=== PATIENT | male | born 1955 | race Caucasian/White ===

== ENCOUNTER 2019-08-07 18:06 | Inpatient (IN) | payer OTHER ==
[2019-08-07 19:53] LABS: Basophils % (A) 0 %; Eosinophils # (A) 0.2 k/uL (0-0.7); Eosinophils % (A) 1 %; HGB 14.2 gm/dL (13.0-17.5); Lymphocytes # (A) 1.1 k/uL (1.0-4.8); Lymphocytes % (A) 4 %; MCH 28.5 pg (25.0-35.0); MCHC 32.9 g/dL (31.0-37.0); MCV 86.6 fL (80.0-100.0); Mean Platelet Volume 7.1; Monocytes # (A) 1.2 k/uL (0-1.0); Monocytes % (A) 5 %; Neutrophils # (A) 22.8 k/uL (1.3-7.7); Neutrophils % (A) 89 %; Platelet Count 221 k/uL (150-450); RBC 4.97 m/uL (4.30-5.90); RDW 13.8 % (11.5-15.5); WBC 25.6 k/uL (3.8-10.6)
[2019-08-07] MEDS ORDERED: SODIUM CHLORIDE 0.9% 1,000 ML IV ONE (19:58)
[2019-08-07] MEDS ORDERED: ACETAMINOPHEN TAB 500 MG TAB PO STA (19:58)
[2019-08-07] MEDS ORDERED: MORPHINE SULFATE 4 MG/ML SYRINGE IVP STA (19:58)
[2019-08-07] MEDS ORDERED: ONDANSETRON 4 MG/2 ML VIAL IVP STA (19:58)
[2019-08-07 20:02] LABS: Partial Thromboplastin Time 28.3 sec (22.0-30.0); Prothrombin Time 10.7 sec (9.0-12.0)
--- NOTE | 2019-08-07 20:02 | ED ---
General Adult HPI - General Chief complaint: Shortness of Breath Stated complaint: rt sided chest pain Time Seen by Provider: 08/07/19 19:43 Source: patient Mode of arrival: ambulatory Limitations: no limitations - History of Present Illness Initial comments: 64-year-old male patient presents to the emergency department today for evaluation of chest pain and shortness of breath. Patient reports symptoms starting on Sunday with cough and nasal congestion. Patient states over the last couple of days he has become increasingly more short of breath. States he is coughing up green sputum. States he has severe pain to the right side of his chest with any attempts at taking a deep breath, movement, or coughing. States he did try taking Motrin this morning but it has not been working. States he has been feverish and chilled. Patient states he does have a history of COPD but is mild. He does not do any home breathing treatments or oxygen. States he did not receive influenza vaccination this season. Patient denies any recent rash, abdominal pain, nausea, vomiting, diarrhea, constipation, back pain, numbness, tingling, dizziness, weakness, hematuria, dysuria, urinary urgency, urinary frequency, headache, visual changes, or any other complaints. - Related Data Allergies Allergy/AdvReac Type Severity Reaction Status Date / Time indomethacin [From Indocin] Allergy Unknown Verified 08/07/19 18:49 Review of Systems ROS Statement: Those systems with pertinent positive or pertinent negative responses have been documented in the HPI. ROS Other: All systems not noted in ROS Statement are negative. Past Medical History Past Medical History: Atrial Fibrillation, CVA/TIA, Myocardial Infarction ([place]), Pneumonia Additional Past Medical History / Comment(s): aortic aneurysm, emphysema History of Any Multi-Drug Resistant Organisms: None Reported Past Surgical History: Heart Catheterization With Stent, Orthopedic Surgery, Prostate Surgery Additional Past Surgical History / Comment(s): triple a mesh, left foot surgery, right knee surger Past Psychological History: No Psychological Hx Reported Smoking Status: Former smoker Past Alcohol Use History: None Reported Past Drug Use History: None Reported General Exam Limitations: no limitations General appearance: alert, in no apparent distress, other (This is a well-de veloped, well-nourished, ill-appearing adult male patient in mild distress related to pain and shortness of breath. Vital signs upon presentation are temperature 101.5F, pulse 94, respirations 19, blood pressure 101/59, pulse ox 93% on room air.) Eye exam: Present: normal appearance, PERRL, EOMI. Absent: scleral icterus, conjunctival injection, periorbital swelling ENT exam: Present: normal exam, normal oropharynx, mucous membranes moist Respiratory exam: Present: respiratory distress (Mild). Absent: wheezes, rales, rhonchi, stridor Cardiovascular Exam: Present: regular rate, normal rhythm, normal heart sounds. Absent: systolic murmur, diastolic murmur, rubs, gallop, clicks GI/Abdominal exam: Present: soft, normal bowel sounds. Absent: distended, tenderness, guarding, rebound, rigid Neurological exam: Present: alert, oriented X3, CN II-XII intact Psychiatric exam: Present: normal affect, normal mood Skin exam: Present: warm, dry, intact, normal color. Absent: rash Course Vital Signs 08/07/19 08/07/19 08/07/19 18:43 20:15 20:22 Temperature 101.5 F H Pulse Rate 94 94 94 Respiratory 19 18 16 Rate Blood Pressure 101/59 O2 Sat by Pulse 93 L Oximetry - Reevaluation(s) Reevaluation #1: 08/07/19 20:26 Patient's blood pressure decreased to 85/43. 18-gauge IV line inserted into the left antecubital fossa. Started a 1 L bolus. Patient diagnosed with sepsis at this time. We will initiate the protocol. EKG Findings - EKG Comments: EKG Findings:: EKG obtained in 1918 shows normal sinus rhythm with a sinus arrhythmia. Ventricular rate is 89, AK interval 150, QRS duration 90, QT 336, QTc 408. No evidence of ST elevation or depression. Medical Decision Making - Medical Decision Making 64-year-old male patient presents to the emergency department today for evaluation of fever, shortness of breath, and right-sided chest pain. He is also had a productive cough. Physical examination reveals diminished lung sounds. Oxygen saturation is 90-93% on room air. Patient has significant pain to the right side of his chest with any cough, or deep inspiration. Labs reviewed and did reveal elevated white blood cell count at 25,000. Chest x-ray did show a right middle lobe pneumonia. He was started on Rocephin and azithromycin. He did have blood pressures decreased into the 80s systolic, he was given sepsis fluid bolus. He'll be admitted to the hospital for continued IV antibiotics and further monitoring. Patient is agreeable this plan. Dr. Sandoval is accepting. - Lab Data Result diagrams: 08/07/19 19:33 08/07/19 19:33 Lab Results 08/07/19 08/07/19 08/07/19 Range/Units 19:33 19:33 19:33 WBC 25.6 H (3.8-10.6) k/uL RBC 4.97 (4.30-5.90) m/uL Hgb 14.2 (13.0-17.5) gm/dL Hct 43.0 (39.0-53.0) % MCV 86.6 (80.0-100.0) fL MCH 28.5 (25.0-35.0) pg MCHC 32.9 (31.0-37.0) g/dL RDW 13.8 (11.5-15.5) % Plt Count 221 (150-450) k/uL Neutrophils % 89 % Lymphocytes % 4 % Monocytes % 5 % Eosinophils % 1 % Basophils % 0 % Neutrophils # 22.8 H (1.3-7.7) k/uL Lymphocytes # 1.1 (1.0-4.8) k/uL Monocytes # 1.2 H (0-1.0) k/uL Eosinophils # 0.2 (0-0.7) k/uL Basophils # 0.0 (0-0.2) k/uL PT 10.7 (9.0-12.0) sec INR 1.0 (<1.2) APTT 28.3 (22.0-30.0) sec Sodium 136 L (137-145) mmol/L Potassium 4.2 (3.5-5.1) mmol/L Chloride 107 (98-107) mmol/L Carbon Dioxide 19 L (22-30) mmol/L Anion Gap 10 mmol/L BUN 21 H (9-20) mg/dL Creatinine 0.76 (0.66-1.25) mg/dL Est GFR (CKD-EPI)AfAm >90 (>60 ml/min/1.73 sqM) Est GFR (CKD-EPI)NonAf >90 (>60 ml/min/1.73 sqM) Glucose 119 H (74-99) mg/dL Plasma Lactic Acid Po (0.7-2.0) mmol/L Calcium 9.2 (8.4-10.2) mg/dL Total Bilirubin 0.9 (0.2-1.3) mg/dL AST 26 (17-59) U/L ALT 18 (4-49) U/L Alkaline Phosphatase 66 (38-126) U/L Troponin I (0.000-0.034) ng/mL Total Protein 6.6 (6.3-8.2) g/dL Albumin 3.8 (3.5-5.0) g/dL Influenza Type A RNA (Not Detectd) Influenza Type B (PCR) (Not Detectd) 08/07/19 08/07/19 08/07/19 Range/Units 19:33 19:33 19:54 WBC (3.8-10.6) k/uL RBC (4.30-5.90) m/uL Hgb (13.0-17.5) gm/dL Hct (39.0-53.0) % MCV (80.0-100.0) fL MCH (25.0-35.0) pg MCHC (31.0-37.0) g/dL RDW (11.5-15.5) % Plt Count (150-450) k/uL Neutrophils % % Lymphocytes % % Monocytes % % Eosinophils % % Basophils % % Neutrophils # (1.3-7.7) k/uL Lymphocytes # (1.0-4.8) k/uL Monocytes # (0-1.0) k/uL Eosinophils # (0-0.7) k/uL Basophils # (0-0.2) k/uL PT (9.0-12.0) sec INR (<1.2) APTT (22.0-30.0) sec Sodium (137-145) mmol/L Potassium (3.5-5.1) mmol/L Chloride (98-107) mmol/L Carbon Dioxide (22-30) mmol/L Anion Gap mmol/L BUN (9-20) mg/dL Creatinine (0.66-1.25) mg/dL Est GFR (CKD-EPI)AfAm (>60 ml/min/1.73 sqM) Est GFR (CKD-EPI)NonAf (>60 ml/min/1.73 sqM) Glucose (74-99) mg/dL Plasma Lactic Acid Po 1.0 (0.7-2.0) mmol/L Calcium (8.4-10.2) mg/dL Total Bilirubin (0.2-1.3) mg/dL AST (17-59) U/L ALT (4-49) U/L Alkaline Phosphatase (38-126) U/L Troponin I 0.014 (0.000-0.034) ng/mL Total Protein (6.3-8.2) g/dL Albumin (3.5-5.0) g/dL Influenza Type A RNA Not Detected (Not Detectd) Influenza Type B (PCR) Not Detected (Not Detectd) - Radiology Data Radiology results: report reviewed, image reviewed 2 views of the chest are obtained. Report was reviewed in its entirety. Impression by Dr. Estes shows right middle lobe pneumonia. Disposition Clinical Impression: Right middle lobe pneumonia Disposition: ADMITTED IP TO THIS [facility] Condition: Serious Referrals: Ifeanyi Peace MD [Primary Care Provider] - 1-2 days Decision to Admit Reason: Admit from EC Decision Date: 08/07/19 Decision Time: 22:01
[2019-08-07] MEDS ORDERED: IPRATROPIUM-ALBUTEROL 3 ML NEB INHALATION STA (20:05)
[2019-08-07] MEDS ORDERED: AZITHROMYCIN 500 MG in SODIUM CHLORIDE 0.9% 250 ML IVPB STA (20:05)
--- NOTE | 2019-08-07 20:20 | XR ---
EXAMINATION TYPE: XR chest 2V DATE OF EXAM: 08/07/2019 COMPARISON: NONE HISTORY: Short of breath TECHNIQUE: 2 views FINDINGS: There is some linear consolidation and atelectasis in the anterior right middle lobe. The o ther lung cano are fairly clear. There is no heart failure. Heart size is normal. There is no pleur al effusion. IMPRESSION: There is evidence of right middle lobe pneumonia and atelectasis. Follow-up is recommende d show clearing.
[2019-08-07] MEDS ORDERED: SODIUM CHLORIDE 0.9% 2,000 ML IV ONE (20:27)
[2019-08-07 21:18] LABS: AST 26 U/L (17-59); African American GFR (CKD) >90 (>60 ml/min/1.73 sqM); Albumin 3.8 g/dL (3.5-5.0); Alkaline Phosphatase 66 U/L (38-126); Anion Gap 10 mmol/L; Blood Urea Nitrogen 21 mg/dL (9-20); Calcium 9.2 mg/dL (8.4-10.2); Carbon Dioxide 19 mmol/L (22-30); Chloride 107 mmol/L (98-107); Glucose 119 mg/dL (74-99); Non-African American GFR(CKD) >90 (>60 ml/min/1.73 sqM); Potassium 4.2 mmol/L (3.5-5.1); Sodium 136 mmol/L (137-145); Total Bilirubin 0.9 mg/dL (0.2-1.3); Total Protein 6.6 g/dL (6.3-8.2)
[2019-08-07] MEDS ORDERED: IPRATROPIUM-ALBUTEROL 3 ML NEB INHALATION PRN (21:27)
[2019-08-07] MEDS ORDERED: PNEUMONIA PROTOCOL UTILIZED 1 EACH MISC PO PRN (21:27)
[2019-08-07 21:35] LABS: ALT 18 U/L (4-49)
[2019-08-07] MEDS ORDERED: KETOROLAC 30 MG/ML 1 ML VIAL IVP STA (22:05)
[2019-08-07] MEDS ORDERED: MORPHINE SULFATE 4 MG/ML SYRINGE IVP PRN (22:05)
[2019-08-07] MEDS: SODIUM CHLORIDE 0.9% 1,000 ML IV SCH (22:15)
[2019-08-07] MEDS ORDERED: ACETAMINOPHEN TAB 325 MG TAB PO PRN (22:27)
[2019-08-08] MEDS: SODIUM CHLORIDE 0.9% 1,000 ML IV SCH ×3 (05:14→21:11)
[2019-08-08] MEDS: IPRATROPIUM-ALBUTEROL 3 ML NEB INHALATION SCH ×4 (06:58→19:29)
--- NOTE | 2019-08-08 08:15 | XR ---
EXAMINATION TYPE: XR chest 2V DATE OF EXAM: 08/08/2019 COMPARISON: 08/07/2019 HISTORY: 64-year-old male follow-up pneumonia TECHNIQUE: PA and lateral views FINDINGS: Heart normal size. Aorta within normal limits. Mild interstitial prominence. Focal right midlung airs pace disease is unchanged. No pleural effusion. IMPRESSION: Focal anterior right midlung infiltrate remains unchanged.
[2019-08-08] MEDS ORDERED: IBUPROFEN 600 MG TAB PO PRN (10:20)
[2019-08-08] MEDS: ATENOLOL 25 MG TAB PO SCH (10:56)
[2019-08-08] MEDS: MULTIVITAMINS, THERA 1 EACH TAB PO SCH (10:56)
[2019-08-08] MEDS: LISINOPRIL 20 MG TAB PO SCH (10:56)
[2019-08-08] MEDS: OXYBUTYNIN 10 MG TAB.ER.24 PO SCH (10:56)
[2019-08-08] MEDS ORDERED: TEMAZEPAM 15 MG CAP PO PRN (15:01)
[2019-08-08] MEDS ORDERED: ALPRAZolam 0.25 MG TAB PO PRN (15:01)
[2019-08-08] MEDS: HYDROcodone/APAP 10-325MG 1 EACH TAB PO PRN (16:52)
[2019-08-08 17:02] LABS: Appearance,Urine Clear (Clear); Bilirubin,Urine Negative (Negative); Blood,Urine Trace (Negative); Color,Urine Light Yellow; Glucose,Urine (UA) Negative (Negative); Hyaline Casts,Urine 1 /lpf (0-2); Ketones,Urine Negative (Negative); Leukocyte Esterase,Urine Negative (Negative); Mucus,Urine Rare /hpf; Nitrite,Urine Negative (Negative); Protein,Urine Negative (Negative); RBC,Urine 1 /hpf (0-5); Specific Gravity,Urine 1.006 (1.001-1.035); Urobilinogen,Urine <2.0 mg/dL (<2.0); WBC,Urine 1 /hpf (0-5)
--- NOTE | 2019-08-08 17:02 | HP ---
HISTORY AND PHYSICAL CHIEF COMPLAINT: Shortness of breath with cough and right-sided chest pain. HISTORY OF PRESENT ILLNESS: This 64-year-old gentleman with a past medical history of multiple medical problems including atrial ablation, CVA, TIA, myocardial infarction, pneumonia, aortic aneurysm history, emphysema, history of CAD/stent being followed by Dr. Peace in the outpatient setting complaining of shortness of breath, cough and sputum for the last several days. The patient also coughing up green sputum. Patient was complaining of right- sided chest pain which was increasing with cough and respirations also. The patient came to [facility]. Chest x-ray showed possible right mid lung infiltrate and the patient was admitted for further evaluation and treatment. There is no history of fever, rigors or chills. No history of headache, loss of consciousness or seizures at this time. PAST MEDICAL HISTORY: History of atrial fibrillation, CVA, TIA, myocardial infarction, pneumonia, aortic aneurysm, history of coronary artery disease/stent, DJD. MEDICATIONS: Home medications are: 1. Crestor 10 mg q.h.s. 2. Xarelto 10 mg q.h.s. 4. [place]-3 fatty acids 1 p.o. b.i.d. 5. Multivitamins one p.o. daily. 6. Motrin 600 mg q.6h p.r.n. 7. [place] 10 mg t.i.d. p.r.n. 8. Vasotec 10 mg p.o. daily. 9. Tenormin 25 mg p.o. daily. 10.Ecotrin 320 mg p.o. daily. ALLERGIES: INDOMETHACIN. FAMILY HISTORY: No history of heart disease or strokes in the family. SOCIAL HISTORY: Previous history of smoking. No history of history of current smoking or alcohol intake. REVIEW OF SYSTEMS: ENT: No diminished vision. No diminished hearing. CARDIOVASCULAR system is as mentioned earlier. GI no nausea or vomiting. no dysuria or hematuria. NERVOUS SYSTEM: No numbness or weakness. ALLERGY/IMMUNOLOGY: No asthma or hayfever. MUSCULOSKELETAL as mentioned earlier. HEMATOLOGY/ONCOLOGY: No history of anemia. ENDOCRINE: No history of diabetes or hypothyroidism. CONSTITUTIONAL: As mentioned earlier. DERMATOLOGY: Negative. RHEUMATOLOGY negative. PSYCHIATRY as mentioned earlier. PHYSICAL EXAMINATION: Alert and oriented times three. Pulse 82, blood pressure 124/69, respirations 16, temperature 97.9, pulse ox 94% on 2 L. HEENT is conjunctivae normal. NECK: No JVD. CARDIOVASCULAR: S1, S2 muffled. RESPIRATIONS: Breath sounds diminished in the bases. Bilateral scattered rhonchi and crackles, right more than the left and some coarse crackles also in the right anterior part of chest. ABDOMEN: Soft, nontender. No mass palpable. LEGS: No edema. No swelling. NERVOUS SYSTEM: Higher functions as mentioned earlier. Moves all 4 limbs. No focal motor or sensory deficits. LYMPHATICS: No lymph nodes palpable in the neck, axillae or groin. JOINTS: No active deforming arthropathy. LABS: At this time shows WBC 25.6, hemoglobin 14.2. Sodium 130, potassium 4.2. ASSESSMENT: 1. Acute right middle lobe pneumonia, possibly community-acquired pneumonia with possible severe acute respiratory syndrome present on admission. 2. Increased WBC. 3. Hyponatremia. 4. History of atrial fibrillation. 5. History of cerebrovascular accident, transient ischemic attack. 6. History of myocardial infarction. 7. History of pneumonia. 8. History of aortic aneurysm. 9. History of chronic obstructive pulmonary disease. 10.History of coronary artery disease/stent. 11.History of prostate surgery. 12.History of right knee surgery. 13.Remote history of nicotine dependence. 14.Obesity with body mass of 32.8. 15.FULL CODE. RECOMMENDATIONS AND DISCUSSION: In this 64-year-old gentleman who presented with multiple complex medical issues, we will monitor the patient closely, continue the current medications, management and symptomatic treatment. Recommend bronchodilator treatment. Empiric antibiotics. Follow the cultures. Otherwise I would also recommend a CT scan of the chest to rule out the possibility of atelectasis or any other abnormality because of the chest x-ray appearance. Other than that, continue with IV fluids. DVT prophylaxis. Guarded prognosis. Further recommendations to follow. A copy of this dictation being forwarded to Dr. Peace who is the primary physician. MMARSHL / IJN: [id number] / [id number]
--- NOTE | 2019-08-08 17:40 | CT ---
EXAMINATION TYPE: CT chest wo con DATE OF EXAM: 08/08/2019 COMPARISON: 08/08/2019 chest x-ray HISTORY: Right pneumonia, atelectasis. CT DLP: 757.6 mGycm, Automated exposure control for dose reduction was used. CONTRAST: Performed injected with 0 mL of Isovue 300. TECHNIQUE: Axial images were obtained at 5 mm thick sections. Reconstructed images are reviewed on [employer] computer in the coronal plane. FINDINGS: Portion of the thyroid visualized is normal. Minimal left and small to minimal right pleural effusions are present. There is a large consolidation within the right middle lobe. Consolidation is in the medial lingula. Pneumonia should be considered. Underlying masses are not excluded. Emphysematous changes are present . There are some increased lung markings along the periphery of the lung especially near the lung bas es. Some developing pulmonary fibrosis could be considered. No enlarged mediastinal or hilar adenopathy is evident. The ascending aorta diameter at the level o f the main pulmonary artery is 3.7 cm. The main pulmonary artery diameter at the bifurcation is 3.4 cm. Moderate coronary artery calcifications present. Limited CT sections are obtained through the upper abdomen. There is some thickening of the left adre nal gland estimated at 1.9 cm. Right adrenal gland appears unremarkable. IMPRESSIONS: 1. Large consolidation right middle lobe with a small medial lingular consolidation. Correlate for pn eumonia. 2. Developing pulmonary fibrosis may be present within the dependent portions of the lungs. 3. Thickened adrenal gland.
[2019-08-08] MEDS ORDERED: NON FORMULARY DRUG (Omega-3 Fatty Acids/Fish Oil [Fish Oil 1,000 Mg Softgel] 1 CAP) PO SCH (21:00)
[2019-08-08] MEDS: ATORVASTATIN 20 MG TAB PO SCH (21:10)
[2019-08-08] MEDS: AZITHROMYCIN 500 MG TAB PO SCH (21:10)
[2019-08-08] MEDS: RIVAROXABAN 20 MG TAB PO SCH (21:48)
[2019-08-09] MEDS: HYDROcodone/APAP 10-325MG 1 EACH TAB PO PRN (01:11)
[2019-08-09] MEDS: SODIUM CHLORIDE 0.9% 1,000 ML IV SCH (05:29)
[2019-08-09 06:28] LABS: Basophils % (A) 0 %; Eosinophils # (A) 0.3 k/uL (0-0.7); Eosinophils % (A) 3 %; HCT 36.5 % (39.0-53.0); Lymphocytes # (A) 1.3 k/uL (1.0-4.8); Lymphocytes % (A) 13 %; MCH 29.1 pg (25.0-35.0); MCHC 32.8 g/dL (31.0-37.0); MCV 88.7 fL (80.0-100.0); Mean Platelet Volume 7.6; Monocytes # (A) 0.7 k/uL (0-1.0); Monocytes % (A) 6 %; Neutrophils # (A) 7.9 k/uL (1.3-7.7); Neutrophils % (A) 75 %; Platelet Count 225 k/uL (150-450); RBC 4.12 m/uL (4.30-5.90); RDW 13.7 % (11.5-15.5); WBC 10.5 k/uL (3.8-10.6)
[2019-08-09 06:37] LABS: African American GFR (CKD) >90 (>60 ml/min/1.73 sqM); Anion Gap 7 mmol/L; Blood Urea Nitrogen 11 mg/dL (9-20); Calcium 8.1 mg/dL (8.4-10.2); Carbon Dioxide 22 mmol/L (22-30); Chloride 110 mmol/L (98-107); Glucose 119 mg/dL (74-99); Non-African American GFR(CKD) >90 (>60 ml/min/1.73 sqM); Potassium 3.8 mmol/L (3.5-5.1); Sodium 139 mmol/L (137-145)
[2019-08-09] MEDS: ASPIRIN 325 MG TAB PO SCH (09:13)
[2019-08-09] MEDS: LISINOPRIL 20 MG TAB PO SCH (09:13)
[2019-08-09] MEDS: PANTOPRAZOLE 40 MG TABLET PO SCH (09:13)
[2019-08-09] MEDS: ATENOLOL 25 MG TAB PO SCH (09:13)
[2019-08-09] MEDS: MULTIVITAMINS, THERA 1 EACH TAB PO SCH (09:13)
[2019-08-09] MEDS: IPRATROPIUM-ALBUTEROL 3 ML NEB INHALATION SCH ×4 (09:48→22:05)
[2019-08-09] MEDS: OXYBUTYNIN 10 MG TAB.ER.24 PO SCH (12:32)
--- NOTE | 2019-08-09 16:51 | CONS ---
CONSULTATION PULMONARY/CRITICAL CARE CONSULTATION: DATE OF SERVICE: 08/09/2019 This is a 64-year-old male who presented to the emergency room. He came in with complaints of chest pain and shortness of breath. Apparently started on Sunday earlier this week. He also complained of cough with nasal congestion. He was coughing up a small amount of phlegm, mostly clear or white. Over the last couple days, the shortness of breath and particularly the chest pain had gotten worse. The phlegm is typically white, sometimes green. The pain is primarily right-sided. It is worse anytime he takes a deep breath. It is sharp pain. It is worse with body movement and coughing. He did take Motrin, but it has not really been helping that much. He states that last night he sort of slept in his room sitting on the bed upright because when he lays down it is too painful. The patient states that he denies any nausea, vomiting or diarrhea. Denies any genitourinary complaints. He apparently does have a history of underlying COPD, but he states it is mild. He was a heavy smoker in the past. His primary care physician is Dr. Peace. He also sees a certified medical assistant. Does not see a mobile sales consultant. ALLERGIES: INDOMETHACIN. HOME MEDICATIONS: Include Crestor, Xarelto, Ditropan, [place] fatty acids, multivitamins, ibuprofen, [place], Vasotec, and atenolol. He also takes a full aspirin 325 mg. PAST MEDICAL HISTORY: Includes atrial fibrillation, CVA, myocardial infarction, pneumonia, and mild COPD. He also apparently has a history of aortic aneurysm. SURGICAL HISTORY: Includes heart catheterization with stent, prostate surgery, left foot surgery, AAA repair, right knee surgery, and some other minor procedures. SOCIAL HISTORY: Positive for previous tobacco use. Does not smoke currently. He denies any alcohol use and any illicit drug use. FAMILY HISTORY: Noncontributory. Both mother and father were healthy. Since he has been here in the hospital, although his breathing is a bit better, the pain is quite significant still. REVIEW OF SYSTEMS: CONSTITUTIONAL: Negative. NEUROLOGIC: Negative. HEENT: Nasal congestion and drainage. CARDIOVASCULAR: Chest pain. PULMONARY: Chest pain, sharp and pleuritic in nature; shortness of breath, cough, occasional phlegm production. GI: Negative. : Negative. RHEUMATOLOGIC: Negative. IMMUNOLOGIC: Negative. ENDOCRINOLOGIC: Negative. DERMATOLOGIC: Negative. PHYSICAL EXAMINATION: Current vital signs are reviewed. Temperature 98.3, heart rate 60, respiratory rate 16, blood pressure 130/74, mean 92 and saturations are 99% on 2 L. Appears in no acute distress. Sitting on the bed. No respiratory distress, conversational dyspnea or use of accessory muscles. HEENT examination is grossly unremarkable. Nasal O2 in place. NECK: Supple. Full range of motion. No adenopathy. Neck veins are flat. CARDIOVASCULAR examination reveals regular rhythm rate. S1, S2 normal. LUNGS: Reveal mostly clear breath sounds. He does not take deep breaths because it causes pain. A few scattered rhonchi on the right. No crackles or wheezes. Breath sounds are for the most part equal. No pleural friction rubs. ABDOMEN: Soft. Bowel sounds are heard. EXTREMITIES are intact. No cyanosis, clubbing, or edema. SKIN: Without rash. NEUROLOGIC: Examination is brief but nonfocal. LABS: Reviewed. White count 10.5 down from 25.6, hemoglobin 12, hematocrit 36.5, platelet count 325,000. PT/INR and PTT are normal. Sodium and potassium normal. Chloride 110, CO2 22 anion gap is 7. BUN and creatinine were 11 and 0.58. Calcium is 8.1. Troponin 0.014. Urine is negative. Influenza studies were negative. A chest x-ray shows a right-sided pneumonia involving the middle lobe. A repeat chest x-ray again shows a bit more extensive right middle lobe pneumonia. A CT scan is done. It shows a large consolidation in the right middle lobe with smaller medial lingular consolidation. This is consistent with underlying pneumonia. In addition, there are some interstitial changes at the bases of his lungs. Microbiologic studies are negative. Medications are reviewed. ASSESSMENT: 1. Bilateral pneumonia, right greater than left with significant pleurisy, particularly on the right side. 2. Mild chronic obstructive pulmonary disease from previous tobacco use. 3. History of atrial fibrillation. 4. History of cerebrovascular accident. 5. History of myocardial infarction. 6. Prior history of pneumonia. 7. History of aortic aneurysm, status post repair. 8. Coronary artery disease with previous PCI and stent placement. PLAN: The patient's medications are reviewed. We added corticosteroids to his regimen. He is on appropriate antibiotics and breathing treatments. Additional recommendations and suggestions are forthcoming. He should improve with the corticosteroids. We will continue to follow. MMODL / IJN: [id number] /
[2019-08-09] MEDS: methylPREDNISolone SOD SUCCI 125 MG/2 ML VIAL IV SCH ×2 (17:42→23:19)
[2019-08-09] MEDS: AZITHROMYCIN 500 MG TAB PO SCH (20:50)
[2019-08-09] MEDS: RIVAROXABAN 20 MG TAB PO SCH (20:50)
[2019-08-09] MEDS: ATORVASTATIN 20 MG TAB PO SCH (20:50)
--- NOTE | 2019-08-09 21:43 | PN ---
PROGRESS NOTE DATE OF SERVICE: 08/09/2019 This 64-year-old gentleman was admitted with right middle lobe pneumonia, is being closely monitored. The CT scan confirmed pneumonia. Otherwise, white count is 10.2, hemoglobin 12. No chest pain, no palpitation. EXAM: Alert and oriented x3. Pulse is 70, blood pressure 124/60, respirations 16, temperature 98.2, pulse ox 98% on room air. HEENT: Conjunctivae normal. Oral mucosa moist. NECK: No jugular venous distention. No lymph node enlargement. CARDIOVASCULAR: S1, S2. RESPIRATORY: Diminished breath sounds at the bases. A few scattered rhonchi and crackles. ABDOMEN: Soft, nontender. LEGS: No edema, no swelling. NERVOUS SYSTEM: No focal deficits. LABS: WBC 10, hemoglobin is 12, sodium 130, potassium 3.8. ASSESSMENT: 1. Acute right middle lobe pneumonia, possibly community-acquired with systemic inflammatory response syndrome, present on admission. 2. Right-sided chest pain, possible pleuritic and pleurisy. 3. Increased WBC. 4. Hyponatremia. 5. History of atrial fibrillation. 6. History of cerebrovascular accident, transient ischemic attack. 7. History of myocardial infarction. 8. History of pneumonia. 9. History of aortic aneurysm. 10.History of chronic obstructive pulmonary disease. 11.History of coronary artery disease, stent. 12.History of prostate surgery. 13.History of right knee surgery. 14.Remote history of nicotine dependence. 15.Atrial fibrillation, paroxysmal. 16.Obesity, body mass of 32.8. 17.FULL CODE. RECOMMENDATIONS AND DISCUSSION: Recommend to continue current medications, continue symptomatic treatment. Otherwise, continue the antibiotics. Pulmonary input appreciated. Otherwise, guarded prognosis because of multiple complex medical issues and further recommendations to follow. MMODL / IJN: [id number] /
[2019-08-10] MEDS: SODIUM CHLORIDE 0.9% 1,000 ML IV SCH ×2 (00:26→16:47)
[2019-08-10] MEDS: methylPREDNISolone SOD SUCCI 125 MG/2 ML VIAL IV SCH ×4 (05:07→23:19)
[2019-08-10 07:34] LABS: Basophils % (A) 0 %; Eosinophils % (A) 0 %; HCT 39.8 % (39.0-53.0); HGB 13.1 gm/dL (13.0-17.5); Lymphocytes # (A) 0.6 k/uL (1.0-4.8); Lymphocytes % (A) 8 %; MCH 28.7 pg (25.0-35.0); MCHC 32.9 g/dL (31.0-37.0); MCV 87.2 fL (80.0-100.0); Mean Platelet Volume 7.3; Monocytes # (A) 0.2 k/uL (0-1.0); Monocytes % (A) 2 %; Neutrophils % (A) 89 %; Platelet Count 296 k/uL (150-450); RBC 4.56 m/uL (4.30-5.90); RDW 13.6 % (11.5-15.5); WBC 7.9 k/uL (3.8-10.6)
[2019-08-10 07:50] LABS: African American GFR (CKD) >90 (>60 ml/min/1.73 sqM); Anion Gap 7 mmol/L; Blood Urea Nitrogen 14 mg/dL (9-20); Carbon Dioxide 26 mmol/L (22-30); Chloride 107 mmol/L (98-107); Glucose 174 mg/dL (74-99); Non-African American GFR(CKD) >90 (>60 ml/min/1.73 sqM); Potassium 4.4 mmol/L (3.5-5.1); Sodium 140 mmol/L (137-145)
[2019-08-10] MEDS: LISINOPRIL 20 MG TAB PO SCH (08:20)
[2019-08-10] MEDS: ATENOLOL 25 MG TAB PO SCH (08:20)
[2019-08-10] MEDS: OXYBUTYNIN 10 MG TAB.ER.24 PO SCH (08:20)
[2019-08-10] MEDS: ASPIRIN 325 MG TAB PO SCH (08:20)
[2019-08-10] MEDS: MULTIVITAMINS, THERA 1 EACH TAB PO SCH (08:20)
[2019-08-10] MEDS: PANTOPRAZOLE 40 MG TABLET PO SCH (08:20)
[2019-08-10] MEDS: IPRATROPIUM-ALBUTEROL 3 ML NEB INHALATION SCH ×4 (09:14→20:35)
--- NOTE | 2019-08-10 12:18 | P.PN ---
Subjective Progress Note Date: 08/10/19 Principal diagnosis: Bilateral pneumonia with pleurisy The patient is seen today 08/10/2019 in follow-up on the regular medical floor. He is doing much better today as compared to yesterday. The pleuritic type chest pain has eased considerably. He is able to lay in bed. He is able to take deep breaths. Maintaining good O2 saturations in the upper 90s on room air. She's afebrile. Blood culture reveals no growth. White count 7.9. Hemoglobin 13.1. Creatinine 0.58. He is continued on ceftriaxone and azithromycin along with bronchodilators and IV Solu-Medrol. Anticoagulated with Xarelto. Objective - Vital Signs Vital signs: Vital Signs Temp 98.1 F 08/10/19 07:37 Pulse 70 08/10/19 09:23 Resp 16 08/10/19 07:37 BP 135/73 08/10/19 07:37 Pulse Ox 98 08/10/19 09:14 Intake & Output 08/09/19 08/10/19 08/10/19 18:59 06:59 18:59 Intake Total 700 740 Balance 700 740 Intake: Intake, IV Titration 740 Amount Sodium Chloride 0.9% 1, 690 000 ml @ 60 mls/hr IV . [id number] MIN Rx#:[id number] cefTRIAXone 1 gm In 50 Sodium Chloride 0.9% 50 ml @ 100 mls/hr IVPB Q24H MIN Rx#:[id number] Oral 700 Other: Voiding Method Toilet Toilet Toilet # Voids 3 3 - Exam GENERAL EXAM: Alert, active, 64-year-old gentleman, on 2 L nasal cannula, comfortable in no apparent distress. HEAD: Normocephalic. EYES: Normal reaction of pupils, equal size. NOSE: Clear with pink turbinates. THROAT: No erythema or exudates. NECK: No masses, no JVD. CHEST: No chest wall deformity. LUNGS: Equal air entry with scattered rhonchi CVS: S1 and S2 normal with no audible murmur, regular rhythm. ABDOMEN: No hepatosplenomegaly, normal bowel sounds, no guarding or rigidity. SPINE: No scoliosis or deformity SKIN: No rashes CENTRAL NERVOUS SYSTEM: No focal deficits, tone is normal in all 4 extremities. EXTREMITIES: There is no peripheral edema. No clubbing, no cyanosis. Perip heral pulses are intact. - Labs CBC & Chem 7: 08/10/19 06:49 08/10/19 06:49 Labs: Abnormal Lab Results - Last 24 Hours (Table) 08/10/19 08/10/19 Range/Units 06:49 06:49 Lymphocytes # 0.6 L (1.0-4.8) k/uL Creatinine 0.58 L (0.66-1.25) mg/dL Glucose 174 H (74-99) mg/dL Microbiology - Last 24 Hours (Table) 08/07/19 19:33 Blood Culture - Preliminary Blood No Growth after 48 hours Assessment and Plan Assessment: 1 Bilateral pneumonia right greater than left with significant pleurisy on the right side. 2 Mild chronic obstructive pulmonary disease from previous tobacco use 3 History of atrial fibrillation, anticoagulated with Xarelto. 4 History of cerbrovascular accident 5 Prior history of pneumonia 6 History of coronary artery disease with previous stent placement 7 History of aortic and rhythm, status post repair Plan: The patient was seen and evaluated by Dr. Chaudhry. He is doing much better today as compared to yesterday. The IV Solu-Medrol has settled down his pleurisy and he is able to take deep breaths without pain. We'll continue current treatment plan. We'll continue to follow. I, the cosigning physician, performed a history & physical examination of the patient. Lungs sounds with few scattered rhonchi Maintaining good O2 saturations in the 90s on 2 L/m per nasal cannula. I discussed the assessment and plan of care with my nurse practitioner, Moon Barber. I attest to the above note as dictated by her.
[2019-08-10] MEDS: ATORVASTATIN 20 MG TAB PO SCH (20:16)
[2019-08-10] MEDS: AZITHROMYCIN 500 MG TAB PO SCH (20:16)
[2019-08-10] MEDS: RIVAROXABAN 20 MG TAB PO SCH (20:16)
--- NOTE | 2019-08-10 21:30 | PN ---
PROGRESS NOTE DATE OF SERVICE: 08/20/2019 This 64-year-old gentleman was admitted with acute right middle lobe pneumonia, also had right-sided chest pain, pleurisy. The patient being closely monitored. Patient is on broad-spectrum IV antibiotics. No chest pain. No palpitations. Cultures negative at this time. EXAM: Alert and oriented x3. Pulse is 85, blood pressure 120/60, respiration 18, temperature 97.7, pulse ox 93% on room air. HEENT: Conjunctivae normal. Oral mucosa moist. NECK: No jugular venous distention. No lymph node enlargement. CARDIOVASCULAR: S1, S2. RESPIRATORY: Diminished breath sounds at the bases. A few scattered rhonchi and crackles, right more than the left. ABDOMEN: Soft, nontender. LEGS: No edema, no swelling. NERVOUS SYSTEM: No focal deficits. LABS: WBC 7.2, hemoglobin 13.1. Other labs are noted. UA noted. ASSESSMENT: 1. Acute right middle lobe pneumonia, possibly community-acquired, with systemic inflammatory response syndrome, present on admission. 2. Right-sided chest pain, possible pleuritic and pleurisy. 3. Increased WBC. 4. Hyponatremia. 5. History of atrial fibrillation. 6. History of cerebrovascular accident, transient ischemic attack. 7. History of myocardial infarction. 8. History of pneumonia. 9. History of aortic aneurysm. 10.History of chronic obstructive pulmonary disease. 11.History of coronary artery disease, stent. 12.History of prostate surgery. 13.History of right knee surgery. 14.History of remote nicotine dependence. 15.Atrial flutter, paroxysmal. 16.Obesity, body mass index 32.8. 17.FULL CODE. RECOMMENDATIONS AND DISCUSSION: Recommend to continue current medication, continue symptomatic treatment, continue the broad IV antibiotics, bronchodilators. Closely follow with Pulmonary. Increase ambulation. Measure oxygen. Otherwise, guarded prognosis because of multiple complex medical issues and further recommendations to follow. MMODL / IJN: [id number] /
[2019-08-11] MEDS: methylPREDNISolone SOD SUCCI 125 MG/2 ML VIAL IV SCH ×2 (05:19→12:27)
[2019-08-11] MEDS: ASPIRIN 325 MG TAB PO SCH (07:14)
[2019-08-11] MEDS: MULTIVITAMINS, THERA 1 EACH TAB PO SCH (07:14)
[2019-08-11] MEDS: ATENOLOL 25 MG TAB PO SCH (07:14)
[2019-08-11] MEDS: PANTOPRAZOLE 40 MG TABLET PO SCH (07:15)
[2019-08-11] MEDS: OXYBUTYNIN 10 MG TAB.ER.24 PO SCH (07:15)
[2019-08-11] MEDS: LISINOPRIL 20 MG TAB PO SCH (07:15)
--- NOTE | 2019-08-11 07:20 | XR ---
EXAMINATION TYPE: XR chest 2V DATE OF EXAM: 08/11/2019 COMPARISON: 08/08/2019 HISTORY: Pneumonia. Follow-up exam. TECHNIQUE: Frontal and lateral views of the chest are obtained. FINDINGS: There is improved aeration of the right hemithorax with decreased degree of consolidation along the right minor fissure and improved aeration of the lingula. No new focal consolidation. Cardi a mediastinal silhouette is stable. Osseous structures are grossly intact. IMPRESSION: Improving right middle lobe and lingular consolidations in this patient with multifocal pneumonia.
[2019-08-11 07:41] LABS: Basophils % (A) 0 %; Eosinophils % (A) 0 %; HCT 40.5 % (39.0-53.0); HGB 13.1 gm/dL (13.0-17.5); Lymphocytes % (A) 6 %; MCHC 32.3 g/dL (31.0-37.0); MCV 86.6 fL (80.0-100.0); Mean Platelet Volume 7.3; Monocytes # (A) 0.7 k/uL (0-1.0); Monocytes % (A) 4 %; Neutrophils # (A) 14.7 k/uL (1.3-7.7); Neutrophils % (A) 89 %; Platelet Count 319 k/uL (150-450); RBC 4.68 m/uL (4.30-5.90); RDW 13.8 % (11.5-15.5); WBC 16.5 k/uL (3.8-10.6)
[2019-08-11 07:56] LABS: African American GFR (CKD) >90 (>60 ml/min/1.73 sqM); Anion Gap 10 mmol/L; Blood Urea Nitrogen 21 mg/dL (9-20); Calcium 9.1 mg/dL (8.4-10.2); Carbon Dioxide 24 mmol/L (22-30); Chloride 107 mmol/L (98-107); Glucose 166 mg/dL (74-99); Non-African American GFR(CKD) >90 (>60 ml/min/1.73 sqM); Potassium 4.5 mmol/L (3.5-5.1); Sodium 141 mmol/L (137-145)
[2019-08-11] MEDS: IPRATROPIUM-ALBUTEROL 3 ML NEB INHALATION SCH ×4 (08:21→18:57)
[2019-08-11] MEDS: SODIUM CHLORIDE 0.9% 1,000 ML IV SCH (09:25)
--- NOTE | 2019-08-11 14:37 | P.PN ---
Subjective Progress Note Date: 08/11/19 64-year-old male patient an ex-smoker was Hospital as for the latter pneumonia. The patient extensive right middle lobe consolidation and this was evident on the CAT scan of the chest. He also had some left upper lobe consolidation. Since admission, the patient has been afebrile. He is currently on room air oxygen. He is using a combination of Rocephin and Zithromax. Blood cultures of been negative. On today's evaluation the white cell count is at 16. He is an ex-smoker. He was expressing extensive amount of pleuritic pain on the right side of the chest for now. No nausea. No vomiting. No diarrhea. No altered mentation . Objective - Vital Signs Vital signs: Vital Signs Temp 97.9 F 08/11/19 07:00 Pulse 76 08/11/19 11:50 Resp 16 08/11/19 07:00 BP 120/65 08/11/19 07:00 Pulse Ox 92 L 08/11/19 07:00 Intake & Output 08/10/19 08/11/19 08/11/19 18:59 06:59 18:59 Intake Total 50 Balance 50 Intake: Intake, IV Titration 50 Amount cefTRIAXone 1 gm In 50 Sodium Chloride 0.9% 50 ml @ 100 mls/hr IVPB Q24H [facility] Rx#:[id number] Other: Voiding Method Toilet Toilet # Voids 5 2 - Exam GENERAL EXAM: Alert, active, 64-year-old gentleman, on on room air oxygen, comfortable in no apparent distress. HEAD: Normocephalic. EYES: Normal reaction of pupils, equal size. NOSE: Clear with pink turbinates. THROAT: No erythema or exudates. NECK: No masses, no JVD. CHEST: No chest wall deformity. LUNGS: Equal air entry with scattered rhonchi CVS: S1 and S2 normal with no audible murmur, regular rhythm. ABDOMEN: No hepatosplenomegaly, normal bowel sounds, no guarding or rigidity. SPINE: No scoliosis or deformity SKIN: No rashes CENTRAL NERVOUS SYSTEM: No focal deficits, tone is normal in all 4 extremities. EXTREMITIES: There is no peripheral edema. No clubbing, no cyanosis. Peripheral pulses are intact. - Labs CBC & Chem 7: 08/11/19 06:57 08/11/19 06:57 Labs: Abnormal Lab Results - Last 24 Hours (Table) 08/11/19 08/11/19 Range/Units 06:57 06:57 WBC 16.5 H (3.8-10.6) k/uL Neutrophils # 14.7 H (1.3-7.7) k/uL BUN 21 H (9-20) mg/dL Creatinine 0.57 L (0.66-1.25) mg/dL Glucose 166 H (74-99) mg/dL Microbiology - Last 24 Hours (Table) 08/07/19 19:33 Blood Culture - Preliminary Blood No Growth after 72 hours Assessment and Plan Plan: 1 Bilateral pneumonia right greater than left with significant pleurisy on the right side. 2 Mild chronic obstructive pulmonary disease from previous tobacco use 3 History of atrial fibrillation, anticoagulated with Xarelto. 4 History of cerbrovascular accident 5 Prior history of pneumonia 6 History of coronary artery disease with previous stent placement 7 History of aortic and rhythm, status post repair Plan This patient has bilateral pneumonia. I reviewed the CAT scan of the chest. The patient has bilateral pulmonary infiltrates most extensive in the right middle lobe area and there is some infiltration in the left upper lobe. Some hazy pulmonary infiltrates can also be seen in the lower lobes bilaterally. The patient has a white cell count of 16.5 on today's evaluation. He is currently afebrile although he had a few at a time of admission and his fever has defervesced. His cultures of been negative and the patient remains on a combina tion of Rocephin and Zithromax. He is doing well on room air oxygen. His follow-up chest x-ray from today was done and was reviewed and showed improvement in the right middle lobe and the lingula consolidation and there is improvement in the multifocal
--- NOTE | 2019-08-11 18:42 | PN ---
PROGRESS NOTE DATE OF SERVICE: 08/11/2019 This 64 -year-old gentleman who was admitted with acute right middle lobe pneumonia, with possibly community-acquired, with SARS is being closely monitored. The patient is not feeling that great today according to him. The patient is on broad-spectrum IV antibiotics. Dr. Castaneda is following the patient closely. CT scan has been reviewed. A two view chest x-ray still shows significant lesions in the right middle lobe. PAST MEDICAL HISTORY: Reviewed. REVIEW OF SYSTEMS: CARDIOVASCULAR: No angina or palpitations. RESPIRATIONS: As mentioned earlier. GI as mentioned earlier. no dysuria or retention. CENTRAL NERVOUS SYSTEM: No numbness or weakness. MEDICATIONS: Current medications noted. PHYSICAL EXAMINATION: Patient is alert and oriented times three. Pulse is 74. Blood pressure 120/64, respirations 16, temp 97.2, pulse ox 98% on room air. HEENT: Conjunctivae normal. NECK: No JVD. CARDIOVASCULAR: S1, S2 muffled. RESPIRATORY SYSTEM: Breath sounds diminished at the bases. A few scattered rhonchi and crackles. Slightly improved clinically. ABDOMEN: Soft. Nontender. NERVOUS SYSTEM: No focal deficits. LABS: WBC 16.5, and sodium is 140, potassium 4.5. Glucose 166. Legionella negative and influenza also negative. ASSESSMENT: 1. Acute right lower lobe pneumonia possibly community-acquired, with SARS present on admission. 2. Right-sided chest pain possible pleuritic and pleurisy. 3. Increased WBC. 4. Hyponatremia. 5. History of atrial fibrillation. 6. History of cerebrovascular accident, transient ischemic attack. 7. History of myocardial infarction. 8. History of pneumonia. 9. History of aortic aneurysm. 10.History of chronic obstructive pulmonary disease. 11.History of coronary artery disease/stent. 12.History of prostate surgery. 13.History of right knee surgery. 14.Remote history of nicotine dependence. 15.History of atrial flutter, paroxysmal. 16.Obesity, body mass index 38.8. 17.FULL CODE. RECOMMENDATIONS AND DISCUSSION: I recommend to continue current medications, monitoring, symptomatic treatment. Otherwise, at this time, I recommend continue with current medications, continue antibiotics. Closely follow with Dr. Castaneda. Guarded prognosis. Further recommendations to follow. Taper the steroids. MMODL / IJN: [id number] /
[2019-08-11] MEDS: AZITHROMYCIN 500 MG TAB PO SCH (20:03)
[2019-08-11] MEDS: RIVAROXABAN 20 MG TAB PO SCH (20:03)
[2019-08-11] MEDS: ATORVASTATIN 20 MG TAB PO SCH (20:03)
[2019-08-11] MEDS: methylPREDNISolone SOD SUCCI 40 MG/ML 1 ML VIAL IV SCH (20:04)
[2019-08-12] MEDS: SODIUM CHLORIDE 0.9% 1,000 ML IV SCH (02:12)
[2019-08-12 02:37] VITALS: RESP 16
[2019-08-12] MEDS: methylPREDNISolone SOD SUCCI 40 MG/ML 1 ML VIAL IV SCH ×2 (04:19→11:26)
[2019-08-12] MEDS: OXYBUTYNIN 10 MG TAB.ER.24 PO SCH (07:14)
[2019-08-12] MEDS: LISINOPRIL 20 MG TAB PO SCH (07:14)
[2019-08-12] MEDS: ATENOLOL 25 MG TAB PO SCH (07:14)
[2019-08-12] MEDS: PANTOPRAZOLE 40 MG TABLET PO SCH (07:15)
[2019-08-12] MEDS: ASPIRIN 325 MG TAB PO SCH (07:15)
[2019-08-12] MEDS: MULTIVITAMINS, THERA 1 EACH TAB PO SCH (07:15)
[2019-08-12 07:58] VITALS: BP 141/81; TEMP 98
[2019-08-12] MEDS: IPRATROPIUM-ALBUTEROL 3 ML NEB INHALATION SCH ×2 (07:59→11:38)
--- NOTE | 2019-08-12 10:41 | P.PN ---
Subjective Progress Note Date: 08/12/19 64-year-old male patient an ex-smoker was Hospital as for the latter pneumonia. The patient extensive right middle lobe consolidation and this was evident on the CAT scan of the chest. He also had some left upper lobe consolidation. Since admission, the patient has been afebrile. He is currently on room air oxygen. He is using a combination of Rocephin and Zithromax. Blood cultures of been negative. On today's evaluation the white cell count is at 16. He is an ex-smoker. He was expressing extensive amount of pleuritic pain on the right side of the chest for now. No nausea. No vomiting. No diarrhea. No altered mentation . On 08/12/2019 and seeing this patient for a follow-up regarding his bilateral pneumonia. Note that the patient was clinically improving and his chest x-ray was also improving from yesterday. On today's evaluation, the patient looks great. He has no specific complaints. His breathing deep and he is able to expand his lungs fully. He is not having any significant cough or chest pain or fever or chills or night sweats. He has been treated with a combination of Rocephin and Zithromax. Objective - Vital Signs Vital signs: Vital Signs Temp 98.0 F 08/12/19 07:00 Pulse 64 08/12/19 08:13 Resp 16 08/12/19 07:00 BP 141/81 08/12/19 07:00 Pulse Ox 95 08/12/19 07:00 Intake & Output 08/11/19 08/12/19 08/12/19 18:59 06:59 18:59 Intake Total 20 175 Balance 20 175 Intake: Oral 20 175 Other: Voiding Method Toilet # Voids 2 2 - Exam GENERAL EXAM: Alert, active, 64-year-old gentleman, on on room air oxygen, comfortable in no apparent distress. HEAD: Normocephalic. EYES: Normal reaction of pupils, equal size. NOSE: Clear with pink turbinates. THROAT: No erythema or exudates. NECK: No masses, no JVD. CHEST: No chest wall deformity. LUNGS: Equal air entry in the lungs are clear for now. CVS: S1 and S2 normal with no audible murmur, regular rhythm. ABDOMEN: No hepatosplenomegaly, normal bowel sounds, no guarding or rigidity. SPINE: No scoliosis or deformity SKIN: No rashes CENTRAL NERVOUS SYSTEM: No focal deficits, tone is normal in all 4 extremities. EXTREMITIES: There is no peripheral edema. No clubbing, no cyanosis. Peripheral pulses are intact. - Labs CBC & Chem 7: 08/11/19 06:57 08/11/19 06:57 Labs: Microbiology - Last 24 Hours (Table) 08/07/19 19:33 Blood Culture - Preliminary Blood No Growth after 96 hours Assessment and Plan Plan: 1 Bilateral pneumonia right greater than left with significant pleurisy on the right side. The patient is clinically improved. He is breathing has improved significantly. No major respiratory distress on today's evaluation. The chest x-ray from yesterday was improving. I think he is ready to go home with oral an tibiotics. 2 Mild chronic obstructive pulmonary disease from previous tobacco use 3 History of atrial fibrillation, anticoagulated with Xarelto. 4 History of cerbrovascular accident 5 Prior history of pneumonia 6 History of coronary artery disease with previous stent placement 7 History of aortic and rhythm, status post repair Plan This patient has bilateral pneumonia. I reviewed the CAT scan of the chest. The patient has bilateral pulmonary infiltrates most extensive in the right mid dle lobe area and there is some infiltration in the left upper lobe. Some hazy pulmonary infiltrates can also be seen in the lower lobes bilaterally. The patient is afebrile. The white cell count from yesterday was 16. Nevertheless, the patient is completely afebrile and he is feeling better clinically and the chest x-ray was improving. He can go home on a combination of Omnicef and Zithromax to be followed up on outpatient basis for repeat chest x-ray in 7-10 days. Increased level of activity as tolerated. Continue the rest of the home outpatient medication.
[2019-08-12 11:50] VITALS: PULSE 68
--- NOTE | 2019-08-13 00:30 | DS ---
DISCHARGE SUMMARY DATE OF SERVICE: 08/12/2019 FINAL DIAGNOSES: 1. Acute right lower lobe pneumonia possibly community-acquired, with SIRS present on admission. 2. Right-sided chest pain possible pleuritic and pleurisy. 3. Increased WBC. 4. Hyponatremia. 5. History of atrial fibrillation, paroxysmal. 6. History of cerebrovascular accident, transient ischemic attack. 7. History of myocardial infarction. 8. History of pneumonia. 9. History of aortic aneurysm. 10.History of chronic obstructive pulmonary disease. 11.History of coronary artery disease, stent. 12.History of prostate surgery. 13.History of right knee surgery. 14.Remote history of nicotine dependence. 15.History of atrial flutter, paroxysmal. 16.Obesity with body mass index of 38.8. 17.FULL CODE. DISCHARGE DISPOSITION: The patient being discharged in stable with guarded prognosis. HISTORY OF PRESENT ILLNESS: This 64-year-old gentleman with a past medical history of multiple medical problems admitted with acute right lower lobe pneumonia. The patient was treated with IV antibiotics. The CT scan of the chest was also done. Dr. Castaneda saw the patient and cleared the patient for discharge. Chest x-ray showed some minimal improvement. On exam, vitals are stable. Cardiovascular system: S1, S2. Abdomen soft. Respirations: A few scattered rhonchi and crackles. DISCHARGE ADVICE AND MEDICATIONS: 1. Diet is cardiac diet. 2. Activity limited until followup. 3. Follow up with Dr. Mack Peace in 2-3 days. 4. Follow up with Dr. Castaneda as recommended. DISCHARGE MEDICATIONS: 1. Crestor 10 mg q.h.s. 2. Ditropan XL 10 mg p.o. daily. 3. Ecotrin 320 mg p.o. daily. 4. Fish oil 600 mg p.o. q.6h. 5. Multivitamins 1 p.o. daily. 6. Hydrocodone 10 mg t.i.d. p.r.n. 7. Tenormin 25 mg p.o. daily. 8. Vasotec 10 mg p.o. daily. 9. Xarelto 20 mg q.h.s. 10.Multivitamins 1 p.o. daily. 11.Omnicef 300 mg p.o. b.i.d. 12.ProAir 2 puffs q.i.d. 13.Zithromax 500 mg p.o. daily. 14.Omnicef for 7 days. 15.Zithromax for 7 days. As mentioned earlier, the sputum cultures are negative so far. Please send a copy of Dr. Ifeanyi Peace and Dr. Castaneda. Once again the patient is being discharged in stable condition with guarded prognosis. MMODL / IJN: [id number] /
--- NOTE | 2019-08-15 04:15 | CDI ---
Documentation Clarification Form Date: 08/15/2019 From: Manuel Thacker Phone: If you have a question about this query, please contact Julianna Clement, [employer] at [phone] between 8am and 5pm. Admit Date: 08/09/2019 Discharge Date:08/12/2019 Patient Name: Hermes Duque Visit Number: [id number] ATTENTION: The Clinical Documentation Specialists (CDI) and [facility] Coding Staff appreciate your assistance in clarifying documentation. Please respond to the clarification below the line at the bottom and electronically sign. The CDI & [facility] Coding staff will review the response and follow-up if needed. Please note: Queries are made part of the Legal Health Record. If you have any questions, please contact the author of this message via ITS. Dear Roxane Ivey., The patient presented with acute right lower lobe pneumonia. History/Risk Factors: [place], CVA, paroxysmal A fib, Emphysema. WBC : 25.6 Lactic acid: 1.0 Blood cultures: negative Vitals signs on admission: Pulse Rate 94 94 94 Respiratory 19 18 16, Blood Pressure 101/59 Other Clinical Indicators: Treatment: Antibiotics Antibiotics: cefTRIAXone 1 gm In 50 IV Bolus: he was given sepsis fluid bolus In ED stated "Patient diagnosed with sepsis at this time". In your professional opinion, please clarify if these findings signify one of the following conditions, whether the condition is POA, and cause, if known: Condition Sepsis ruled out SIRS, without underlying infectious process Sepsis Severe Sepsis Septic Shock Other, please specify Unable to determine Present on Admission Yes No Sepsis ruled out MTDD
== END 2019-08-12 12:49 | disposition home or self-care (01) | DRG 194 ==
LOC: EC 18:06 → 4SSUR 23:40 → OBSVTOIN 08-09 14:30
PROVIDERS: ADMIT Internal Medicine; ATTEND Internal Medicine
DX: J18.9 Pneumonia, unspecified organism (principal); E87.1 Hypo-osmolality and hyponatremia; E66.9 Obesity, unspecified; I25.10 Atherosclerotic heart disease of native coronary artery without angina pectoris; I48.0 Paroxysmal atrial fibrillation; J43.9 Emphysema, unspecified; I71.9 Aortic aneurysm of unspecified site, without rupture; Z87.01 Personal history of pneumonia (recurrent); I25.2 Old myocardial infarction; Z86.79 Personal history of other diseases of the circulatory system; Z86.73 Personal history of transient ischemic attack (TIA), and cerebral infarction without residual deficits; Z95.5 Presence of coronary angioplasty implant and graft; Z79.899 Other long term (current) drug therapy; Z79.82 Long term (current) use of aspirin; Z79.01 Long term (current) use of anticoagulants; Z87.891 Personal history of nicotine dependence; Z68.38 Body mass index [BMI] 38.0-38.9, adult; Z98.890 Other specified postprocedural states
CPT/HCPCS: 36415; 71046; 71250; 80048; 80053; 81001; 83605; 84484; 85025; 85610; 85730; 86738; 87040; 87449; 87502; 93005; 94640; 94760; 96361; 96365; 96375; 99285

== ENCOUNTER 2020-07-28 20:00 | Inpatient (IN) | payer MEDICARE, OTHER ==
[2020-07-28] MEDS ORDERED: SODIUM CHLORIDE 0.9% 500 ML 500 ML IV STA (20:29)
[2020-07-28] MEDS ORDERED: ACETAMINOPHEN TAB 325 MG TAB PO STA (20:29)
[2020-07-28] MEDS ORDERED: VANCOMYCIN IV PER PHARMACY 1 EACH MISC MISCELLANE PRN (21:11)
[2020-07-28 21:14] LABS: Basophils % (A) 0 %; Eosinophils # (A) 0.1 k/uL (0-0.7); Eosinophils % (A) 1 %; HCT 45.3 % (39.0-53.0); HGB 15.1 gm/dL (13.0-17.5); Lymphocytes # (A) 1.2 k/uL (1.0-4.8); Lymphocytes % (A) 8 %; MCHC 33.3 g/dL (31.0-37.0); MCV 84.2 fL (80.0-100.0); Mean Platelet Volume 7.1; Monocytes # (A) 0.8 k/uL (0-1.0); Monocytes % (A) 5 %; Neutrophils # (A) 12.3 k/uL (1.3-7.7); Neutrophils % (A) 84 %; Platelet Count 301 k/uL (150-450); RBC 5.39 m/uL (4.30-5.90); RDW 14.3 % (11.5-15.5); WBC 14.6 k/uL (3.8-10.6)
--- NOTE | 2020-07-28 21:17 | ED ---
Fever HPI - General Chief Complaint: Fever Stated Complaint: Blister on hand and head,fever Time Seen by Provider: 07/28/20 20:16 Source: patient Mode of arrival: ambulatory Limitations: no limitations - History of Present Illness Initial Comments: 65-year-old male patient presents to the emergency department today with multiple complaints. Patient is reporting fever and shortness of breath. States he also developed a rash to the bilateral hands and to the posterior neck. States the rash is blistered and painful. States one of the blisters on his hand ruptured and is draining clear fluid. Patient states rash started today. He denies any cough or congestion. Denies chest pain. Denies increased swelling to his extremities. 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 Patient denies any recent rash, abd ominal pain, nausea, vomiting, diarrhea, constipation, back pain, numbness, tingling, dizziness, weakness, hematuria, dysuria, urinary urgency, urinary frequency, headache, visual changes, or any other complaints. - Related Data Home Medications Medication Instructions Recorded Confirmed Aspirin EC [Ecotrin] 325 mg PO DAILY 08/07/19 07/28/20 Enalapril [Vasotec] 10 mg PO DAILY 08/07/19 07/28/20 HYDROcodone/APAP 10-325MG [[place] 1 tab PO TID PRN 08/07/19 07/28/20 10-325] [place]-3 Fatty Acids/Fish Oil [Fish 1 cap PO DAILY 08/07/19 07/28/20 Oil 1,000 mg Softgel] Rivaroxaban [Xarelto] 20 mg PO HS 08/07/19 07/28/20 Rosuvastatin [Crestor] 10 mg PO HS 08/07/19 07/28/20 atenoloL [Tenormin] 25 mg PO DAILY 08/07/19 07/28/20 Previous Rx's Medication Instructions Recorded Multivitamins, Thera [Multivitamin] 1 tab PO DAILY #30 tablet 08/12/19 Allergies Allergy/AdvReac Type Severity Reaction Status Date / Time indomethacin [From Indocin] AdvReac rectal Verified 07/28/20 20:37 bleeding Review of Systems ROS Statement: Those systems with pertinent positive or pertinent negative responses have been documented in the HPI. ROS Other: All systems not noted in ROS Statement are negative. Past Medical History Past Medical History: Atrial Fibrillation, CVA/TIA, Myocardial Infarction ([place]), Pneumonia Additional Past Medical History / Comment(s): aortic aneurysm, emphysema Last Myocardial Infarction Date:: 2013 possibly History of Any Multi-Drug Resistant Organisms: None Reported Past Surgical History: Heart Catheterization With Stent, Orthopedic Surgery, Prostate Surgery Additional Past Surgical History / Comment(s): triple a mesh, left foot surgery, right knee surger Past Anesthesia/Blood Transfusion Reactions: No Reported Reaction Date of Last Stent Placement:: 2013 Past Psychological History: No Psychological Hx Reported Smoking Status: Former smoker Past Alcohol Use History: None Reported Past Drug Use History: None Reported General Exam Limitations: no limitations General appearance: alert, in no apparent distress, other (Physical well- developed, well-nourished adult male patient in no acute distress. Vital signs upon presentation are temperature 99.2F, pulse 101, respirations 22, blood pressure 134/81, pulse ox 96% on room air.) Respiratory exam: Present: normal lung sounds bilaterally. Absent: respiratory distress, wheezes, rales, rhonchi, stridor Cardiovascular Exam: Present: regular rate, normal rhythm, normal heart sounds. Absent: systolic murmur, diastolic murmur, rubs, gallop, clicks GI/Abdominal exam: Present: soft, normal bowel sounds. Absent: distended, tenderness, guarding, rebound, rigid Extremities exam: Present: full ROM, normal capillary refill, other (Bilateral hand swelling. Vesicles noted to the palmar aspect of both hands. There is swelling and erythema extending up the right forearm. ). Absent: normal inspection, tenderness, pedal edema, joint swelling, calf tenderness Neurological exam: Present: alert, oriented X3, CN II-XII intact Psychiatric exam: Present: normal affect, normal mood Skin exam: Present: warm, dry, intact, normal color. Absent: rash Course Vital Signs 07/28/20 07/28/20 07/28/20 20:03 20:26 20:30 Temperature 99.3 F 99.3 F Pulse Rate 101 H Respiratory 22 18 18 Rate Blood Pressure 134/81 O2 Sat by Pulse 96 Oximetry Medical Decision Making - Medical Decision Making 65 year-old male patient presented to the emergency department today for evaluation of fever, shortness of breath, and rash to the bilateral hands. Patient states that he started having symptoms today. Noticed fever upon arrival. Physical examination did reveal a vesicular rash noted to the bilateral hands, with erythema and swelling extending up the right forearm. Patient also had a rash noted to left antecubital fossa and to the posterior neck. Patient's temperature is 99.3F. Labs reviewed and did reveal elevated white blood cell count of 14,000. Coronavirus, influenza testing were negative. Chest x-ray was clear. He was started on Kefzol and Vanco for cellulitis. Comprehensive viral panel was ordered on vesicle drainage. Patient will be admitted to the hospital for further evaluation. He is agreeable to this plan. - Lab Data Result diagrams: 07/28/20 20:35 07/28/20 20:35 Lab Results 07/28/20 07/28/20 07/28/20 Range/Units 20:35 20:35 20:35 WBC 14.6 H (3.8-10.6) k/uL RBC 5.39 (4.30-5.90) m/uL Hgb 15.1 (13.0-17.5) gm/dL Hct 45.3 (39.0-53.0) % MCV 84.2 (80.0-100.0) fL MCH 28.0 (25.0-35.0) pg MCHC 33.3 (31.0-37.0) g/dL RDW 14.3 (11.5-15.5) % Plt Count 301 (150-450) k/uL MPV 7.1 Neutrophils % 84 % Lymphocytes % 8 % Monocytes % 5 % Eosinophils % 1 % Basophils % 0 % Neutrophils # 12.3 H (1.3-7.7) k/uL Lymphocytes # 1.2 (1.0-4.8) k/uL Monocytes # 0.8 (0-1.0) k/uL Eosinophils # 0.1 (0-0.7) k/uL Basophils # 0.0 (0-0.2) k/uL PT 10.2 (9.0-12.0) sec INR 1.0 (<1.2) APTT 24.6 (22.0-30.0) sec Sodium 137 (137-145) mmol/L Potassium 4.4 (3.5-5.1) mmol/L Chloride 104 (98-107) mmol/L Carbon Dioxide 25 (22-30) mmol/L Anion Gap 8 mmol/L BUN 24 H (9-20) mg/dL Creatinine 0.68 (0.66-1.25) mg/dL Est GFR (CKD-EPI)AfAm >90 (>60 ml/min/1.73 sqM) Est GFR (CKD-EPI)NonAf >90 (>60 ml/min/1.73 sqM) Glucose 118 H (74-99) mg/dL Plasma Lactic Acid Po (0.7-2.0) mmol/L Calcium 9.7 (8.4-10.2) mg/dL Total Bilirubin 0.6 (0.2-1.3) mg/dL AST 23 (17-59) U/L ALT 24 (4-49) U/L Alkaline Phosphatase 51 (38-126) U/L Troponin I (0.000-0.034) ng/mL Total Protein 7.0 (6.3-8.2) g/dL Albumin 4.1 (3.5-5.0) g/dL Influenza Type A (PCR) (Not Detectd) Influenza Type B (PCR) (Not Detectd) RSV (PCR) (Not Detectd) SARS-CoV-2 (PCR) (Not Detectd) 07/28/20 07/28/20 07/28/20 Range/Units 20:35 20:35 20:35 WBC (3.8-10.6) k/uL RBC (4.30-5.90) m/uL Hgb (13.0-17.5) gm/dL Hct (39.0-53.0) % MCV (80.0-100.0) fL MCH (25.0-35.0) pg MCHC (31.0-37.0) g/dL RDW (11.5-15.5) % Plt Count (150-450) k/uL MPV Neutrophils % % Lymphocytes % % Monocytes % % Eosinophils % % Basophils % % Neutrophils # (1.3-7.7) k/uL Lymphocytes # (1.0-4.8) k/uL Monocytes # (0-1.0) k/uL Eosinophils # (0-0.7) k/uL Basophils # (0-0.2) k/uL PT (9.0-12.0) sec INR (<1.2) APTT (22.0-30.0) sec Sodium (137-145) mmol/L Potassium (3.5-5.1) mmol/L Chloride (98-107) mmol/L Carbon Dioxide (22-30) mmol/L Anion Gap mmol/L BUN (9-20) mg/dL Creatinine (0.66-1.25) mg/dL Est GFR (CKD-EPI)AfAm (>60 ml/min/1.73 sqM) Est GFR (CKD-EPI)NonAf (>60 ml/min/1.73 sqM) Glucose (74-99) mg/dL Plasma Lactic Acid Po 1.3 (0.7-2.0) mmol/L Calcium (8.4-10.2) mg/dL Total Bilirubin (0.2-1.3) mg/dL AST (17-59) U/L ALT (4-49) U/L Alkaline Phosphatase (38-126) U/L Troponin I <0.012 (0.000-0.034) ng/mL Total Protein (6.3-8.2) g/dL Albumin (3.5-5.0) g/dL Influenza Type A (PCR) Not Detected (Not Detectd) Influenza Type B (PCR) Not Detected (Not Detectd) RSV (PCR) Not Detected (Not Detectd) SARS-CoV-2 (PCR) Not Detected (Not Detectd) - EKG Data -: EKG Interpreted by Ne EKG Comments: EKG obtained at 2112 shows normal sinus rhythm with a sinus arrhythmia. Ventricular rate is 79, WI Interval 156, QRS duration 90, QT 368, QTC 421. No evidence of ST elevation or depression. - Radiology Data Radiology results: report reviewed, image reviewed One view x-ray of the chest is obtained. Report reviewed in its entirety. Impression by Dr. Estes shows mild fibrotic changes at the lung bases. No acute lung disease. No change compared to old exam. 4 views of the right wrist are obtained. Report was reviewed in its entirety. Impression by Dr. Estes shows negative right wrist exam. No evidence for subcutaneous air. Disposition Clinical Impression: Cellulitis Disposition: ADMITTED IP TO THIS [facility] Condition: Serious Referrals: Ifeanyi Peace MD [Primary Care Provider] - 1-2 days Decision to Admit Reason: Admit from EC Decision Date: 07/28/20 Decision Time: 22:47
[2020-07-28 21:24] LABS: ALT 24 U/L (4-49); AST 23 U/L (17-59); African American GFR (CKD) >90 (>60 ml/min/1.73 sqM); Albumin 4.1 g/dL (3.5-5.0); Alkaline Phosphatase 51 U/L (38-126); Anion Gap 8 mmol/L; Blood Urea Nitrogen 24 mg/dL (9-20); Calcium 9.7 mg/dL (8.4-10.2); Carbon Dioxide 25 mmol/L (22-30); Chloride 104 mmol/L (98-107); Glucose 118 mg/dL (74-99); Non-African American GFR(CKD) >90 (>60 ml/min/1.73 sqM); Potassium 4.4 mmol/L (3.5-5.1); Sodium 137 mmol/L (137-145); Total Bilirubin 0.6 mg/dL (0.2-1.3)
--- NOTE | 2020-07-28 21:31 | XR ---
EXAMINATION TYPE: XR wrist complete RT DATE OF EXAM: 07/28/2020 COMPARISON: NONE HISTORY: Wrist pain TECHNIQUE: 4 views FINDINGS: Carpal bones appear intact. Metacarpals are intact. I see no fracture nor dislocation. Join t spaces are fairly normal. IMPRESSION: Negative right wrist exam.
--- NOTE | 2020-07-28 21:32 | XR ---
EXAMINATION TYPE: XR chest 1V portable DATE OF EXAM: 07/28/2020 COMPARISON: 08/29/2019 HISTORY: Short of breath. Fever. TECHNIQUE: FINDINGS: There is mild increased interstitial density in the lower lung cano. There is no heart fa ilure. There is no pulmonary consolidation. Heart size is normal. There are no hilar masses. Thoracic aorta is atheromatous. IMPRESSION: Mild fibrotic changes at the lung bases. No acute lung disease. No change compared to old exam.
[2020-07-28 21:49] LABS: Partial Thromboplastin Time 24.6 sec (22.0-30.0); Prothrombin Time 10.2 sec (9.0-12.0)
[2020-07-28] MEDS ORDERED: NALOXONE 0.4 MG/ML 1 ML VIAL IV PRN (22:47)
[2020-07-28] MEDS ORDERED: ACETAMINOPHEN TAB 325 MG TAB PO PRN (22:47)
[2020-07-28] MEDS ORDERED: HYDROmorphone 0.5 MG/0.5 ML SYRINGE IVP PRN (22:47)
[2020-07-28] MEDS ORDERED: ONDANSETRON 4 MG/2 ML VIAL IVP PRN (22:47)
[2020-07-28] MEDS ORDERED: VANCOMYCIN 1,750 MG in SODIUM CHLORIDE 0.9% 500 ML 500 ML IVPB ONE (23:00)
[2020-07-29] MEDS: VANCOMYCIN 1,500 MG in SODIUM CHLORIDE 0.9% 250 ML IVPB SCH ×2 (05:25→13:31)
--- NOTE | 2020-07-29 14:04 | P.HPIM ---
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, patient has a history of hypertension hypertensive cardiovascular disease, history of chronic atrial fibrillation and has been on direct oral anticoagulants as well as the antihypertensive agent, no new medications have been initiated, patient has been having issues associated fever and shortness of breath for last couple of days in addition have noted vesicle papular rash in the hand as well as the neck in the wrist and forearm causing swelling painfulness, they believe these blisters drain clear fluid however, denies any respiratory complaints and denies any GI complaints, not sure about covert exposure, denies any [employer]S [employer] symptoms as well, generalized wrist and chest x-ray Nonspecific finding of no fibrosis labs are significant for leukocytosis white cell count is 14,000, viral panel including covid 19 is negative Review of Systems All systems: negative Past Medical History Past Medical History: Atrial Fibrillation, CVA/TIA, Myocardial Infarction ([place]), Pneumonia Additional Past Medical History / Comment(s): aortic aneurysm, emphysema Last Myocardial Infarction Date:: 2013 possibly History of Any Multi-Drug Resistant Organisms: None Reported Past Surgical History: Heart Catheterization With Stent, Orthopedic Surgery, Prostate Surgery Additional Past Surgical History / Comment(s): triple a mesh, left foot surgery, right knee surgery, root canal about a week or two ago Past Anesthesia/Blood Transfusion Reactions: No Reported Reaction Date of Last Stent Placement:: 2013 Past Psychological History: No Psychological Hx Reported Smoking Status: Former smoker Past Alcohol Use History: None Reported Past Drug Use History: None Reported Medications and Allergies Home Medications Medication Instructions Recorded Confirmed Type Aspirin EC [Ecotrin] 325 mg PO DAILY 08/07/19 07/28/20 History Enalapril [Vasotec] 10 mg PO DAILY 08/07/19 07/28/20 History HYDROcodone/APAP 10-325MG [[place] 1 tab PO TID PRN 08/07/19 07/28/20 History 10-325] [place]-3 Fatty Acids/Fish Oil [Fish 1 cap PO DAILY 08/07/19 07/28/20 History Oil 1,000 mg Softgel] Rivaroxaban [Xarelto] 20 mg PO HS 08/07/19 07/28/20 History Rosuvastatin [Crestor] 10 mg PO HS 08/07/19 07/28/20 History atenoloL [Tenormin] 25 mg PO DAILY 08/07/19 07/28/20 History Multivitamins, Thera [Multivitamin] 1 tab PO DAILY #30 tablet 08/12/19 07/28/20 Rx Allergies Allergy/AdvReac Type Severity Reaction Status Date / Time indomethacin [From Indocin] AdvReac rectal Verified 07/28/20 20:37 bleeding Physical Exam Vitals: Vital Signs Temp Pulse Pulse Resp BP BP Pulse Ox 07/29/20 08:00 98.3 F 79 18 131/74 95 07/29/20 07:47 98.3 F 79 131/74 95 07/29/20 07:00 18 07/29/20 02:35 98.5 F 90 18 117/70 92 L 07/29/20 00:34 18 07/29/20 00:20 98.2 F 97 18 117/67 92 L 07/28/20 23:26 98.2 F 78 18 108/62 96 07/28/20 20:30 99.3 F 18 07/28/20 20:26 18 07/28/20 20:03 99.3 F 101 H 22 134/81 96 Intake and Output 07/28/20 07/29/20 07/29/20 22:59 06:59 14:59 Other: Voiding Method Toilet Toilet # Voids 1 Weight 111.584 kg 111.584 kg - Constitutional General appearance: average body habitus, cooperative, disheveled - EENT Eyes: PERRLA Ears: bilateral: normal - Neck Neck: normal ROM Carotids: bilateral: upstroke normal Thyroid: bilateral: normal size - Respiratory Respiratory: bilateral: CTA - Cardiovascular Rhythm: regular Heart sounds: normal: S1, S2 - Gastrointestinal General gastrointestinal: normal bowel sounds - Integumentary Integumentary: normal turgor - Neurologic Neurologic: CNII-XII intact - Musculoskeletal Musculoskeletal: gait normal, generalized weakness, strength equal bilaterally - Psychiatric Psychiatric: A&O x's 3, appropriate affect, intact judgment & insight Results CBC & Chem 7: 07/28/20 20:35 07/28/20 20:35 Labs: Abnormal Lab Results - Last 24 Hours (Table) 07/28/20 07/28/20 Range/Units 20:35 20:35 WBC 14.6 H (3.8-10.6) k/uL Neutrophils # 12.3 H (1.3-7.7) k/uL BUN 24 H (9-20) mg/dL Glucose 118 H (74-99) mg/dL Chest x-ray: report reviewed, image reviewed Thrombosis Risk Factor Assmnt - Choose All That Apply Each Factor Represents 1 point: Obesity (BMI >25) Each Risk Factor Represents 2 Points: Age 61-74 years Thrombosis Risk Factor Assessment Total Risk Factor Score: 3 Thrombosis Risk Factor Assessment Level: Moderate Risk Assessment and Plan Assessment: Cellulitis of both hand Vesiculo papular rash Chronic atrial fibrillation Hypertension and hypertensive cardiovascular disease Plan: Patient is being started on cefazolin along with vancomycin with infectious disease on consult Sugars have obtained from the rash and vesicle Continue home medications Time with Patient: Greater than 30
[2020-07-29] MEDS: methylPREDNISolone SOD SUCCI 125 MG/2 ML VIAL IV SCH ×2 (16:19→23:01)
[2020-07-29] MEDS ORDERED: FLUCONAZOLE 100 MG TAB PO ONE (16:30)
[2020-07-29] MEDS: ATORVASTATIN 20 MG TAB PO SCH (20:10)
[2020-07-29] MEDS: RIVAROXABAN 20 MG TAB PO SCH (20:10)
--- NOTE | 2020-07-29 22:42 | CONS ---
CONSULTATION DATE OF SERVICE: 07/29/2020 REASON FOR CONSULTATION: Fever and rash. HISTORY OF PRESENT ILLNESS: The patient is a 65-year-old male presenting to the ER at [facility] last night for evaluation of a fever and rash to bilateral hands and posterior neck area. The patient mentioned his symptoms have been going on for a day before he presented to the hospital. The patient has been complaining of itching and burning pain to the rash area, which is mostly on the dorsum of the hand and upper arm as well as posterior neck. Subsequently he noticed having a rash on the trunk and groin area. The patient is describing the pain to be more of a burning type, sharp, 5 to 6 over 10 and no radiation. The patient currently does not have any open vesicle or drainage. The patient denies having any new medication. He did mention that he took penicillin but finished it about a week ago that he took for an infected tooth. 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 The patient has been afebrile. He did have a white count of 14.6 with a left shift. His liver enzymes are normal. Creatinine is normal. Troponin was negative. The patient did have influenza RSV and SARS-COVID2 negative. The patient did have a chest x-ray showing some fibrotic changes at the lung bases. Wrist x-ray was negative. The patient was started on cefazolin. Vancomycin has been added by the hospital. Infectious Disease was consulted for further management of antibiotic therapy. REVIEW OF SYSTEMS: Positive points have been mentioned in the HPI. Rest of the systems are negative. PAST MEDICAL HISTORY: Atrial fibrillation, CVA, TIA, [place], pneumonia, aortic aneurysm, emphysema. PAST SURGICAL HISTORY: PTCA with stent, prostate surgery, right knee surgery. SOCIAL HISTORY: Remote history of smoking. No drinking or drug use. FAMILY HISTORY: No pertinent findings noticed. ALLERGIES: INDOMETHACIN. MEDICATIONS: The patient is currently on Tylenol, aspirin, Tenormin, Lipitor, cefazolin 2 grams q.8, Dilaudid, Zestril, Narcan, Zofran, Xarelto and vancomycin, Pharmacy to dose. PHYSICAL EXAMINATION: Blood pressure 152/78 with a pulse of 75, temperature 98.9. He is 95% on room air. General description is an elderly male lying in bed in no distress. No tachypnea or accessory muscle of respiration use. HEENT: Examination shows no pallor or scleral icterus. Oral mucous membrane is dry with no evidence of any mucosal lesion. NECK: Trachea is central. No thyromegaly. LUNGS: Unlabored breathing. Clear to auscultation anteriorly. No wheeze or crackle. HEART: S1, S2. Regular rate and rhythm. ABDOMEN: Soft. No tenderness. No guarding or rigidity. EXTREMITIES: No edema of the feet. EXAMINATION OF SKIN: The patient did have a macular rash mostly on the upper extremities, posterior neck and trunk, especially in the breast floor and the groin area. No pustular or vesicular lesion or any drainage. NEUROLOGICAL: Patient is awake, alert, oriented x3. Mood and affect normal. LABS: Hemoglobin 15.1, white count 14.6, BUN of 24, creatinine 0.68. Electrolytes have been normal. Liver enzymes are normal. DIAGNOSTIC IMPRESSION AND PLAN: Patient admitted to hospital with a rash which is mostly itching with some burning component, more likely representing an allergic reaction, possibly related to PENICILLIN that he took for his infected tooth. The patient does work in a cleaning service but did not have any exposure to any chemicals. Clinically not behaving as a typical cellulitis, but not entirely excluded. PLAN: 1. Discontinue the vancomycin. 2. May continue cefazolin 2 grams q.8 hours. 3. Will add Solu-Medrol 60 q.6. 4. Will obtain inflammatory markers and a rheumatological workup to rule out other causes for his rash. 5. We will follow his clinical condition and further adjust medication if needed. Thank you for this consultation. Will follow this patient along with you. MMODL / IJN: [id number] / ANISA
[2020-07-30] MEDS ORDERED: VANCOMYCIN TROUGH DUE 1 EACH MISC MISCELLANE ONE (05:00)
[2020-07-30] MEDS: methylPREDNISolone SOD SUCCI 125 MG/2 ML VIAL IV SCH ×4 (05:26→23:23)
[2020-07-30] MEDS: lisinopriL 20 MG TAB PO SCH (07:37)
[2020-07-30] MEDS: FLUCONAZOLE 100 MG TAB PO SCH (07:37)
[2020-07-30] MEDS: atenoloL 25 MG TAB PO SCH (07:37)
[2020-07-30] MEDS: ASPIRIN 325 MG TAB PO SCH (07:37)
[2020-07-30] MEDS: MULTIVITAMINS, THERA 1 EACH TAB PO SCH (07:37)
[2020-07-30] MEDS ORDERED: NON FORMULARY DRUG (Omega-3 Fatty Acids/Fish Oil [Fish Oil 1,000 Mg Softgel] 1 EACH Capsul PO SCH (09:00)
[2020-07-30 10:54] LABS: African American GFR (CKD) 122.3 (60.0-200.0); Non-African American GFR(CKD) 105.5 (60.0-200.0)
[2020-07-30] MEDS: RIVAROXABAN 20 MG TAB PO SCH (20:36)
[2020-07-30] MEDS: ATORVASTATIN 20 MG TAB PO SCH (20:36)
--- NOTE | 2020-07-30 22:39 | PN ---
PROGRESS NOTE DATE OF SERVICE: 07/30/2020 REASON FOR FOLLOW UP: Rash, possible allergic reaction and question of cellulitis. INTERVAL COURSE: The patient is currently afebrile. The patient overall feeling better and did mention a rash on the hands and has improved denies having new rash. No chest pain, shortness of breath or cough. No abdominal pain or diarrhea. PHYSICAL EXAMINATION: Blood pressure 144/71, pulse of 77, temperature 98.6. He is 93% on room air. General description: The patient is an elderly male up in the chair in no distress. Respiratory system: Unlabored breathing with decreased breath sounds in the base, with no wheeze. Heart S1, S2. Regular rate and rhythm. Abdomen soft. No tenderness. Skin examination: Rash has significantly improved. DIAGNOSTIC IMPRESSION AND PLAN: Patient admitted to the hospital with a rash upper extremity, trunk and neck area with concern for possible allergic infection. Cellulitis less likely not entirely excluded. Patient clinically responding to the currently on cefazolin, Diflucan and Solu Medrol to continue another 24 hours and monitor clinical course closely. Continue supportive care. MMODL / IJN: [id number] / ANISA
[2020-07-31] MEDS: methylPREDNISolone SOD SUCCI 125 MG/2 ML VIAL IV SCH ×2 (05:47→12:23)
[2020-07-31 08:29] VITALS: BP 119/72; PULSE 70; RESP 18; TEMP 97.5
[2020-07-31] MEDS: lisinopriL 20 MG TAB PO SCH (08:41)
[2020-07-31] MEDS: FLUCONAZOLE 100 MG TAB PO SCH (08:41)
[2020-07-31] MEDS: ASPIRIN 325 MG TAB PO SCH (08:41)
[2020-07-31] MEDS: MULTIVITAMINS, THERA 1 EACH TAB PO SCH (08:41)
[2020-07-31] MEDS: atenoloL 25 MG TAB PO SCH (08:41)
[2020-07-31 09:01] LABS: African American GFR (CKD) 122.3 (60.0-200.0); Non-African American GFR(CKD) 105.5 (60.0-200.0)
--- NOTE | 2020-07-31 12:19 | P.DS ---
Providers Date of admission: 07/29/20 08:22 Expected date of discharge: 07/31/20 Attending physician: Mc Traylor Consults: 07/28/20 22:47 Consult Physician Routine Consulting Provider: Pau Haile Consult Reason/Comments: Vesicular rash; cellulitis Do you want consulting provider notified?: Yes Primary care physician: [facility] Course: 05/01/2020 care plan discussed with the patient as well as Dr. 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, patient has a history of hypertension hypertensive cardiovascular disease, history of chronic atrial fibrillation and has been on direct oral anticoagulants as well as the antihypertensive agent, no new medications have been initiated, patient has been having issues associated fever and shortness of breath for last couple of days in addition have noted vesicle papular rash in the hand as well as the neck in the wrist and forearm causing swelling painfulness, they believe these blisters drain clear fluid however, denies any respiratory complaints and denies any GI complaints, not sure about covert exposure, denies any MANAGER [employer] symptoms as well, generalized wrist and chest x-ray Nonspecific finding of no fibrosis labs are significant for leukocytosis white cell count is 14,000, viral panel including covid 19 is negative Assessment: ALLERGIC reaction to penicillin Cellulitis secondary Vesiculo papular rash Chronic atrial fibrillation Hypertension and hypertensive cardiovascular disease Patient Condition at Discharge: Good Plan - Discharge Summary Discharge Rx Participant: No New Discharge Prescriptions: New Fluconazole [Diflucan] 100 mg PO DAILY #7 tab Cephalexin [Keflex] 500 mg PO Q8HR 1 Days #3 cap methylPREDNISolone Dose Pack [Medrol Dose Pack] 4 mg PO DIRECTED #21 package Continue Rivaroxaban [Xarelto] 20 mg PO HS [place]-3 Fatty Acids/Fish Oil [Fish Oil 1,000 mg Softgel] 1 cap PO DAILY Aspirin EC [Ecotrin] 325 mg PO DAILY Rosuvastatin [Crestor] 10 mg PO HS Enalapril [Vasotec] 10 mg PO DAILY atenoloL [Tenormin] 25 mg PO DAILY Multivitamins, Thera [Multivitamin (formulary)] 1 tab PO DAILY #30 tablet Discontinued HYDROcodone/APAP 10-325MG [[place] 10-325] 1 tab PO TID PRN PRN Reason: Pain Discharge Medication List Aspirin EC [Ecotrin] 325 mg PO DAILY 08/07/19 [History] Enalapril [Vasotec] 10 mg PO DAILY 08/07/19 [History] [place]-3 Fatty Acids/Fish Oil [Fish Oil 1,000 mg Softgel] 1 cap PO DAILY 08/07/19 [History] Rivaroxaban [Xarelto] 20 mg PO HS 08/07/19 [History] Rosuvastatin [Crestor] 10 mg PO HS 08/07/19 [History] atenoloL [Tenormin] 25 mg PO DAILY 08/07/19 [History] Multivitamins, Thera [Multivitamin (formulary)] 1 tab PO DAILY #30 tablet 08/12/19 [Rx] Cephalexin [Keflex] 500 mg PO Q8HR 1 Days #3 cap 07/31/20 [Rx] Fluconazole [Diflucan] 100 mg PO DAILY #7 tab 07/31/20 [Rx] methylPREDNISolone Dose Pack [Medrol Dose Pack] 4 mg PO DIRECTED #21 package 07/31/20 [Rx] Follow up Appointment(s)/Referral(s): Ifeanyi Peace MD [Primary Care Provider] - 1-2 days Discharge Disposition: HOME SELF-CARE
--- NOTE | 2020-07-31 17:27 | PN ---
PROGRESS NOTE DATE OF SERVICE: 07/31/2020 REASON FOR FOLLOWUP: PEG tube site cellulitis and a question of drug reaction. INTERVAL HISTORY: The patient was seen on rounds early this afternoon. The patient has been afebrile. He is breathing comfortably. The patient's rash has resolved. No new rash. No chest pain, shortness of breath or cough. No abdominal pain or diarrhea. PHYSICAL EXAMINATION: Blood pressure 119/72, pulse 72. Temperature 97.5. He is 96% on room air. General description is an elderly male up in the chair in no distress. Respiratory system: Unlabored breathing. Clear to auscultation anteriorly. Heart S1, S2. Regular rate and rhythm. Abdomen soft, no tenderness. LABS: Blood culture negative. DIAGNOSTIC IMPRESSION AND PLAN: Patient with rash to the wrist and neck and trunk. Concern for possible allergic reaction. Cellulitis less likely not entirely excluded. Finish therapy with a Medrol Dosepak and short course of Keflex as per discussion with the admitting physician. NEILL / GRACEN: [id number] / MTDD
[2020-08-02 14:32] LABS: C-ANCA <1:20 Titer (<1:20)
== END 2020-07-31 14:26 | disposition home or self-care (01) | DRG 603 ==
LOC: EC 20:00 → 4SSUR 23:15 → OBSVTOIN 07-29 08:22
PROVIDERS: ADMIT Internal Medicine Sleep Medicine; ATTEND Internal Medicine Sleep Medicine
DX: L03.113 Cellulitis of right upper limb (principal); I48.20 Chronic atrial fibrillation, unspecified; L03.221 Cellulitis of neck; L03.112 Cellulitis of left axilla; T36.0X5A Adverse effect of penicillins, initial encounter; Z20.828 Contact with and (suspected) exposure to other viral communicable diseases; I11.9 Hypertensive heart disease without heart failure; J43.9 Emphysema, unspecified; L29.9 Pruritus, unspecified; R23.8 Other skin changes; I25.2 Old myocardial infarction; Z79.01 Long term (current) use of anticoagulants; Z79.82 Long term (current) use of aspirin; Z79.899 Other long term (current) drug therapy; Z86.73 Personal history of transient ischemic attack (TIA), and cerebral infarction without residual deficits; Z87.891 Personal history of nicotine dependence; Z95.5 Presence of coronary angioplasty implant and graft; Z88.8 Allergy status to other drugs, medicaments and biological substances; Z98.890 Other specified postprocedural states
CPT/HCPCS: 36415; 71045; 80053; 80202; 82565; 83605; 84484; 85025; 85610; 85652; 85730; 86038; 86140; 86160; 86162; 86255; 87040; 87252; 87498; 87529; 87636; 87798; 93005; 96365; 96367; 99284

== ENCOUNTER 2022-04-21 06:19 | Day surgery (SDC) | payer MEDICARE, OTHER ==
[~2022-04-21 06:19] MED LIST: DEXAMETHASONE SOD PHOSPHATE 4 MG/ML 1 ML VIAL IV ONE; HYDROmorphone 0.5 MG/0.5 ML SYRINGE IVP PRN; LACTATED RINGERS 1,000 ML IV SCH; ONDANSETRON 4 MG/2 ML VIAL IVP ONE; ceFAZolin 3 GM in SODIUM CHLORIDE 0.9% 100 ML IVPB PRN
[2022-04-21] MEDS ORDERED: PHENYLEPHRINE-0.9% NACL SYG 1,000 MCG/10 ML SYRINGE ONE (07:21)
[2022-04-21] MEDS ORDERED: fentaNYL (PF) 50 MCG/ML 2 ML AMP ONE (07:21)
[2022-04-21] MEDS ORDERED: LIDOCAINE 2% INJ 20 MG/ML (2 ML VIAL) ONE (07:21)
[2022-04-21] MEDS ORDERED: SUCCINYLCHOLINE CHLORIDE 200 MG/10 ML VIAL IV ONE (07:21)
[2022-04-21] MEDS ORDERED: MIDAZOLAM 2 MG/2 ML VIAL ONE (07:21)
[2022-04-21] MEDS ORDERED: PROPOFOL 10 MG/ML 20 ML VIAL IV ONE (07:21)
[2022-04-21] MEDS ORDERED: ePHEDrine 50 MG/ML 1 ML VIAL ONE (07:21)
[2022-04-21] MEDS ORDERED: BUPIVACAINE (PF) 0.25% 30 ML VIAL SQ ONE ×2 (07:36→08:00)
[2022-04-21] MEDS ORDERED: LACTATED RINGERS 1,000 ML IV ONE (08:45)
[2022-04-21 09:34] VITALS: TEMP 99
[2022-04-21 11:05] VITALS: BP 128/78; PULSE 68; RESP 16
--- NOTE | 2022-05-01 17:18 | OP ---
OPERATIVE REPORT PREOPERATIVE DIAGNOSES: 1. Primary osteoarthritis, second metatarsophalangeal joint, left foot. 2. Hammertoe, second digit, left foot. POSTOPERATIVE DIAGNOSES: 1. Primary osteoarthritis, second metatarsophalangeal joint, left foot. 2. Hammertoe, second digit, left foot. PROCEDURES: 1. Second metatarsal osteotomy with implant arthroplasty, left foot. 2. Hammertoe correction, second digit, left foot. ANESTHESIA: General. HEMOSTASIS: Left ankle tourniquet at 250 mmHg. ESTIMATED BLOOD LOSS: Minimal. MATERIALS: 1. Arthrosurface minimal curvature lesser metatarsal head implant. 2. Arthrex 16 mm hammertoe implant. INJECTABLES: 20 mL 0.25% Marcaine. PREOP SPECIMENS: None. COMPLICATIONS: None. DESCRIPTION OF PROCEDURE: The patient was brought into the operative room, placed on the table in supine position. A time-out was taken to confirm the correct patient identifiers, correct laterality of surgery, and correct procedure. When all staff were in agreement with the time-out, the patient was induced and placed under general anesthesia. A well- padded tourniquet was placed on the left ankle. Then, 20 mL of 0.25% Marcaine was injected as a left ankle block and then the left foot was prepped and draped in usual manner. The left foot was exsanguinated and the tourniquet inflated to 250 mmHg. Attention directed over the dorsal aspect of the second metatarsophalangeal joint, where a lazy-S incision was made over the joint. It was deepened down to the subcutaneous tissue careful to identify and avoid retracting neurovascular structures and cauterize any bleeding vessels. Blunt dissection was continued down to the second metatarsophalangeal joint capsule. The capsule was incised in the medial aspect avoiding the long extensor tendon and then the capsule reflected from its osseous attachments on the second metatarsal head as well as base of the proximal phalanx of the digit. Visual examination of the joint showed severe degenerative changes with little to no articular cartilage remaining. There was also dorsal and plantar osteophytic formation. The osteophytes were removed with a rongeur and then a guidewire was placed in the central aspect of the metatarsal head and then under fluoroscopic visualization was advanced into the medullary canal. A drill hole was then made for the screw and anchor down to proper depth and then the anchor was inserted over the wire and then advanced to proper depth with approximately 2 mm advancement for decompression. Then, the reamer was placed and then the reamer was advanced until it contacted the implant. At that point, the wire and the reamer were removed, and then trials were used to assess proper type of implant. Given the patient's deformity, it was determined that a minimal curvature implant would be appropriate. So that implant was then placed into the previously seated anchor, then impacted until it was firmly seated on the bone and the anchor. Fluoroscopy used to check the overall alignment, which was central in the medullary canal and in appropriate alignment in the sagittal plane. Any remaining bone osteophytes were then removed with a rongeur and then the wound was thoroughly irrigated with antibiotic saline. Then, attention was directed over the proximal interphalangeal joint of the second digit, where an incision was made over the joint, deepened down to the subcutaneous tissue careful to identify and avoid retracting neurovascular structures and cauterize any bleeding vessels. Dissection was then continued down to the joint capsule, which was incised resecting the extensor tendon, the collateral ligaments, and exposing the proximal phalangeal head. The head was resected with a sagittal saw. Then, the articular cartilage at the base of the middle phalanx was removed with a rongeur. The drill holes for the 16 mm hammertoe implant were made after the guidewire was in place, then the threaded portion of the implant was placed in the middle phalanx and then the proximal aspect of the implant was placed in the hole in the proximal phalanx and then impacted down to proper depth until there was good bony contact at the arthrodesis site. The pin was then advanced, deployed the arms further in the proximal phalanx, and fluoroscopic images showed rectus correction of the digits and proper placement of the implant. The guidewire was removed and all wounds were thoroughly irrigated with antibiotic saline. Capsular closure of both incisions was done with 2-0 Vicryl. Subcutaneous tissue closed with 4-0 Monocryl. Skin closure done with 3-0 Stratafix in a running subcuticular manner. Dermal glue was applied and allowed to dry, then covered with Steri-Strips, and then an Arthrex JumpStart dressing with a bulky dry dressing. The tourniquet was released. Capillary refill returned to all digits of the left foot. Anesthesia was reversed and the patient was taken to Recovery with vital signs stable. MMODL / GRACEN: [id number] /
== END 2022-04-21 11:35 | disposition home or self-care (01) ==
LOC: OR 06:19
PROVIDERS: ATTEND Podiatrist
DX: M20.42 Other hammer toe(s) (acquired), left foot (principal); I11.9 Hypertensive heart disease without heart failure; R06.02 Shortness of breath; H91.90 Unspecified hearing loss, unspecified ear; Z88.6 Allergy status to analgesic agent; Z87.891 Personal history of nicotine dependence; Z79.899 Other long term (current) drug therapy; M19.072 Primary osteoarthritis, left ankle and foot; I25.10 Atherosclerotic heart disease of native coronary artery without angina pectoris; Z95.5 Presence of coronary angioplasty implant and graft; I73.9 Peripheral vascular disease, unspecified; E78.5 Hyperlipidemia, unspecified; I48.91 Unspecified atrial fibrillation; J44.9 Chronic obstructive pulmonary disease, unspecified; G45.9 Transient cerebral ischemic attack, unspecified; Z79.51 Long term (current) use of inhaled steroids; Z79.891 Long term (current) use of opiate analgesic
CPT/HCPCS: 28285; 28899; C1713; J2250; J0330; J1100; J0690; J2405; J3010; J2370; J2704; J2001

== ENCOUNTER → 2022-08-17 | Outpatient (CLI) | payer MEDICARE ==
--- NOTE | 2022-08-17 11:32 | MR ---
EXAMINATION TYPE: MR cervical spine wo con DATE OF EXAM: 08/17/2022 COMPARISON: None HISTORY: Neck and right shoulder pain, headaches. TECHNIQUE: Multiplanar, multisequence images of the cervical spine were acquired without contrast. I am limited by motion artifact. C2-C3: Mild disc desiccation. Bilateral mild uncovertebral joint hypertrophy. No significant foramina l impingement. No discrete disc herniation or canal stenosis. C3-C4: Peuw-gh-jfvsdxao disc space narrowing with disc desiccation. There is posterior spondylosis wi th disc osteophyte complex centrally and paracentrally to the right. Bilateral uncovertebral joint an d facet arthropathy. Moderate to severe bilateral foraminal encroachment. No discrete herniation. No canal stenosis. C4-C5: Moderate disc space narrowing with disc desiccation. Broad-based disc protrusion catheter by s pur results in mild effacement of thecal sac. Uncovertebral joint hypertrophy and facet arthropathy c ontribute to moderate to severe bilateral foraminal encroachment and borderline to mild central steno sis. C5-C6: Broad-based disc protrusion with facet arthropathy greater on the right and bilateral uncovert ebral hypertrophy greater on the right. Severe right-sided foraminal encroachment and moderate left f oraminal encroachment. Moderate effacement of thecal sac due to disc osteophyte complex results in mi ld central stenosis. Minimal anterolisthesis C5 on C6. C6-C7: Motion artifact limits evaluation grossly no disc herniation or canal stenosis. Neural foramin a patent. C7-T1: No evidence for degenerative disc disease. No disc bulge/herniation or protrusion. No Canal stenosis. Foramina are patent bilaterally. Cervical segments are intact. There is normal alignment. Cervical spinal cord is of normal signal. Craniovertebral junction relationships are within normal limits. Changes of chronic sinusitis. Emi ow signal alteration C4 and C5 is most likely related to this benign vertebral body hemangioma. Incidental note is made of a sagittal disc protrusion or herniation T3-T4 which is not included in t he [id number] on the axial images. IMPRESSION: 1. Multilevel moderate degenerative disc disease most marked finding seen and levels C3-4 and C4-5 an d C5-C6. Disc protrusions catheter by spur contribute to thecal sac impression with borderline to mil d canal stenosis at C4-5 and C5-6. 2. There is multilevel moderate severe bilateral foraminal encroachment as discussed above. 3. On the sagittal images level of T3-T4 is included and demonstrates a sagittal disc protrusion or h erniation. This region is not included in field of view on the axial images. Correlate with dedicated thoracic MRI as clinically warranted.
== END | disposition home or self-care (01) ==
LOC: RADMRIMAIN 10:18
PROVIDERS: ATTEND Orthopaedic Surgery
DX: M48.02 Spinal stenosis, cervical region (principal); M54.12 Radiculopathy, cervical region; M50.30 Other cervical disc degeneration, unspecified cervical region; M47.892 Other spondylosis, cervical region; M43.12 Spondylolisthesis, cervical region; M50.321 Other cervical disc degeneration at C4-C5 level; M50.221 Other cervical disc displacement at C4-C5 level
CPT/HCPCS: 72141

== ENCOUNTER → 2022-12-09 | Outpatient (CLI) | payer MEDICARE ==
--- NOTE | 2022-12-10 10:44 | PE ---
EXAMINATION TYPE: PET CT fusion skull to thigh DATE OF EXAM: 12/09/2022 CLINICAL INDICATION:Male, 67 years old with history of R91.1; TECHNIQUE: Following the intravenous administration of 12.39 mCi of F-18 FDG, whole body images are performed from the skull base to the midthigh. Images are reviewed on the computer in the coronal, axial, and sagittal planes. Reconstructed rotating images are created on independent workstation and reviewed on the computer. A non-contrast CT is performed in conjunction with the PET scan. Glucose level 110 mg/dL COMPARISON: CT 08/08/2019, PET/CT None, FINDINGS: Mediastinal SUV mean is 1.2. Hepatic parenchyma SUV mean is 2.2. SKULL BASE AND NECK: No suspicious radiotracer activity. CHEST, MEDIASTINUM, AND HILAR REGION: * Right lower lung consolidation max SUV 2.3 ABDOMEN AND PELVIS: * Abnormal FDG activity within the prostate gland Max SUV 5.7 there is some coarse calcifications in the prostate gland. * Right common iliac chain lymph node max SUV 2.9 measuring 7 mm in short axis. OSSEOUS STRUCTURES: No suspicious radiotracer activity. OTHER CT: Atherosclerosis of the arterial vasculature. Coronary artery calcifications are present. Th ere is airspace opacities in the left anterior upper lung. Emphysema changes are seen throughout the lungs. More focal masslike consolidation in the right lung base near the diaphragm. There is hepatic steatosis. Scattered colonic diverticula. Aortobiiliac stent graft present. Coarse desiccation of the prostate gland. Bilateral fat-containing inguinal hernias. IMPRESSION: 1. Right lower lung nodule-like consolidation which does have mild FDG activity. There are no priors for correlation. Short-term follow-up CT is recommended to ensure resolution as this has an appearan ce of an infectious/inflammatory process. Comparisons with priors would be of benefit. Additional lef t upper lung anterior consolidation changes also concerning for infectious/inflammatory process. 2. 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 Furthe r evaluation with MRI prostate is recommended for confirmation. Correlation with serum PSA is recomme nded. 3. Indeterminate right common iliac lymph node with mild FDG activity. Could be secondary to #2.
== END | disposition home or self-care (01) ==
LOC: RADPETMAIN 11:30
PROVIDERS: ATTEND Internal Medicine Critical Care Medicine
DX: R91.1 Solitary pulmonary nodule (principal)
CPT/HCPCS: 78815; A9552

== ENCOUNTER → 2023-06-19 | Outpatient (CLI) | payer MEDICARE ==
[2023-06-19 12:13] LABS: African American GFR (CKD) >90 (>60 ml/min/1.73 sqM); Blood Urea Nitrogen 21 mg/dL (9-20); Non-African American GFR(CKD) >90 (>60 ml/min/1.73 sqM)
--- NOTE | 2023-06-19 12:57 | CT ---
EXAMINATION TYPE: CT chest w con DATE OF EXAM: 06/19/2023 COMPARISON: 08/08/2019 PET/CT dated 12/09/2022 HISTORY: lung nodule CT DLP: 616.10 mGycm Automated exposure control for dose reduction was used. CONTRAST: CT scan of the chest is performed with IV Contrast, patient injected with 100 mL of Isovue 300. FINDINGS: LUNGS: There is mild progression of consolidative process left upper lobe anteriorly with associated fibrosis relative to the 2019 examination however stable since PET CT.. There is resolution of the la rge area of consolidation right upper lobe anteriorly as well since 2020. There is a pleural based no dule right lower lobe image 54 measuring 1.5 x 2.0 cm unchanged PET/CT. Continued follow-up is recomm ended given mild FDG activity. No new nodules are seen. Scattered subpleural fibrosis noted. Upper lo be emphysematous change. COPD. MEDIASTINUM: There are no greater than 1 cm hilar or mediastinal lymph nodes. No pericardial effusi on is seen. Thoracic aorta is of normal caliber. The heart is mildly enlarged. UPPER ABDOMEN: No significant abnormality appreciated. OTHER: No additional significant abnormality is seen. IMPRESSION: 1 stable pleural-based nodule right lower lobe. Continued follow-up in 6 months is advised. 2. There is mild progression of consolidative process left upper lobe anteriorly with associated fibr osis relative to the 2019 examination however stable since PET CT.. There is resolution of the large area of consolidation right upper lobe anteriorly as well since 2020.
== END | disposition home or self-care (01) ==
LOC: RADCTMAIN 11:33
PROVIDERS: ATTEND Internal Medicine Critical Care Medicine
DX: R91.1 Solitary pulmonary nodule (principal)
CPT/HCPCS: 82565; 84520; 71260; 36415; Q9967

== ENCOUNTER 2023-06-30 09:24 | Inpatient (IN) | payer MEDICARE ==
[2023-06-30] MEDS ORDERED: LIDOCAINE 5% PATCH TOPICAL STA (11:27)
--- NOTE | 2023-06-30 11:29 | ED ---
General Adult HPI - General Chief complaint: Shortness of Breath Stated complaint: SOB Time Seen by Provider: 06/30/23 10:09 Source: patient Mode of arrival: wheelchair Limitations: physical limitation - History of Present Illness Initial comments: Dictation was produced using [employer] dictation software. please excuse any grammatical, word or spelling errors. Chief Complaint: 67-year-old male multiple comorbidities presents with shortness of breath History of Present Illness: Patient is 67-year-old male has multiple cardiopulmonary comorbidities presents to emergency department with acute onset shortness of breath and chest pain. The pain is to his left lower lateral chest. It is sharp in nature worse when he coughs. Stender when he touches it. Patient also has been coughing short of breath. Denies any constitutional sy mptoms he has a history of pulmonary fibrosis, emphysema, H fibrillation and coronary artery disease. The ROS documented in this emergency department record has been reviewed and confirmed by me. Those systems with pertinent positive or negative responses have been documented in the HPI. All other systems are other negative and/or noncontributory. - Related Data Home Medications Medication Instructions Recorded Confirmed Enalapril [Vasotec] 10 mg PO DAILY 08/07/19 04/19/22 [place] Fatty Acids/Fish Oil [Fish 1 cap PO DAILY 08/07/19 04/19/22 Oil 1,000 mg Softgel] Rivaroxaban [Xarelto] 20 mg PO HS 08/07/19 04/19/22 Rosuvastatin [Crestor] 20 mg PO HS 08/07/19 04/19/22 atenoloL [Tenormin] 25 mg PO DAILY 08/07/19 04/19/22 Albuterol Inhaler [Ventolin Hfa 1 - 2 puff INHALATION Q6H PRN 04/19/22 04/21/22 Inhaler] Clopidogrel [Plavix] 75 mg PO DAILY 04/19/22 04/21/22 HYDROcodone/APAP 10-325MG [[place] 1 tab PO Q6HR PRN 04/19/22 04/19/22 10-325] Previous Rx's Medication Instructions Recorded Multivitamins, Thera [Multivitamin 1 tab PO DAILY #30 tablet 08/12/19 (formulary)] oxyCODONE HCL/ACETAMINOPHEN 1 tab PO Q4HR PRN #30 tab 04/21/22 [Percocet 7.5-325 mg] Allergies Allergy/AdvReac Type Severity Reaction Status Date / Time indomethacin [From Indocin] AdvReac rectal Verified 06/30/23 10:07 bleeding Review of Systems ROS Statement: Those systems with pertinent positive or pertinent negative responses have been documented in the HPI. ROS Other: All systems not noted in ROS Statement are negative. Past Medical History Past Medical History: Atrial Fibrillation, COPD, CVA/TIA, Hyperlipidemia, Hypertension, Myocardial Infarction ([place]), Osteoarthritis (OA), Pneumonia Additional Past Medical History / Comment(s): hx. aortic aneurysm-had surg., emphysema, TIA's x2 couple years ago-no residual effects, DDD, spinal stenosis, pinched nerve down right leg Last Myocardial Infarction Date:: 2013 possibly History of Any Multi-Drug Resistant Organisms: None Reported Past Surgical History: Heart Catheterization With Stent, Orthopedic Surgery, Prostate Surgery Additional Past Surgical History / Comment(s): AAA 6-8 yrs. ago, left foot surgery x3, right knee arthroscopy, 9 stents total, laser surg. for enlarged prostate Past Anesthesia/Blood Transfusion Reactions: No Reported Reaction Date of Last Stent Placement:: 2020 Past Psychological History: No Psychological Hx Reported Smoking Status: Former smoker Past Alcohol Use History: None Reported Past Drug Use History: None Reported - Past Family History Mother Family Medical History: No Reported History General Exam - General Exam Comments Initial Comments: PHYSICAL EXAM: General Impression: Alert and oriented x3, acute distress in her pain HEENT: Normocephalic atraumatic, extra-ocular movements intact, pupils equal and reactive to light bilaterally, mucous membranes moist. Cardiovascular: Heart regular rate and rhythm Chest: Able to complete full sentences, no retractions, no tachypnea, clear to auscultation bilaterally Abdomen: abdomen soft, non-tender, non-distended, no organomegaly Musculoskeletal: Pulses present and equal in all extremities, no peripheral edema Motor: no focal deficits noted Neurological: CN II-XII grossly intact, no focal motor or sensory deficits noted Skin: Intact with no visualized rashes Psych: Normal affect and mood Limitations: physical limitation Course Vital Signs 06/30/23 06/30/23 06/30/23 10:04 11:52 13:08 Temperature 98.3 F Pulse Rate 72 76 Respiratory 34 H 30 H 26 H Rate Blood Pressure 155/88 78/39 O2 Sat by Pulse 93 L 96 Oximetry 06/30/23 06/30/23 06/30/23 13:26 14:18 14:30 Temperature Pulse Rate 74 76 84 Respiratory 26 H 18 Rate Blood Pressure 95/52 72/46 81/64 O2 Sat by Pulse 97 97 Oximetry Procedures - Central Line Placement Right Femoral Consent Obtained: verbal consent, emergent situation Patient Placed on Monitor/Pulse Ox: Yes MD Prep: mask, gown, gloves Central Line Prep: Chlorhexidine scrub Local Anesthesia Used: Lidocaine 2% Ultrasound Used for Placement: Yes Central Line Lumen Inserted: triple Central Line Position: good blood return, all ports aspirated, flushed, capped, sutured in place with 3-0 nylon Dressing Applied: Tegaderm Post Procedure X-Ray: tip of catheter in good position Patient Tolerated Procedure: well Complications: none - Sepsis Sepsis Focused Exam #1 Time Sepsis Criteria Met: 14:49 Sepsis Focused Exam Date: 06/30/23 Sepsis Focused Exam Time: 14:49 Sepsis Focused Exam Complete: Yes Vital Signs & RN Notes Reviewed: Yes Capillary Refill: < 2 Seconds: Fingers, Toes Peripheral Pulses: Normal: Radial (R), Radial (L), Posterior Tibialis (R), Poste rior Tibialis (L), Dorsalis Pedis (R), Dorsalis Pedis (L) Skin Color: Normal for Patient Respiratory Exam: respiratory distress Cardiovascular Exam: regular rate Medical Decision Making - Medical Decision Making Was pt. sent in by a medical professional or institution (, PA, JOINT SUPERVISOR, urgent care, hospital, or [facility]...) When possible be specific @ -No Did you speak to anyone other than the patient for history (EMS, parent, family, police, friend...)? What history was obtained from this source @ -No Did you review nursing and triage notes (agree or disagree)? Why? @ -I reviewed and agree with nursing and triage notes Were old charts reviewed (outside hosp., previous admission, EMS record, old EKG, old radiological studies, urgent care reports/EKG's, [facility] records)? Report findings @ -No old charts were reviewed Differential Diagnosis (chest pain, altered mental status, abdominal pain women, abdominal pain men, vaginal bleeding, musculoskeletal, weakness, fever, dyspnea, syncope, headache, dizziness, GI bleed, back pain, seizure, CVA, palpatations, mental health)? @ -Differential Chest Pain: Stable Angina, Unstable Angina, STEMI, NSTEMI Aortic Dissection, Pneumothorax, Musculoskeletal, Esophageal Spasm GERD, Cholecystitis, Pancreatitis, Zoster, this is not meant to be an all-inclusive list. EKG interpreted by me (3pts min.). @ -See above X-rays interpreted by me (1pt min.). @ -Two-view chest x-ray shows multifocal consolidations CT interpreted by me (1pt min.). @CT angiography of the chest shows severe consolidative process in the left upper lobe right lung base U/S interpreted by me (1pt. min.). @ -None done What testing was considered but not performed or refused? (CT, X-rays, U/S, labs)? Why? @ -None What meds were considered but not given or refused? Why? @ -None Did you discuss the management of the patient with other professionals (professionals i.e. , PA, JOINT SUPERVISOR, lab, RT, psych nurse, web content & social media manager, crystal lapper, teacher, network security officer, case management social worker)? Give summary @ with entry level electrician for ICU admission case discussed with hospitalist for admission Was smoking cessation discussed for >3mins.? @ -No Was critical care preformed (if so, how long)? @ -yes, 77 minutes Were there social determinants of health that impacted care today? How? (Homelessness, low income, unemployed, alcoholism, drug addiction, transportation, low edu. Level, literacy, decrease access to med. care, prison, rehab)? @ -No Was there de-escalation of care discussed even if they declined (Discuss DNR or withdrawal of care, Hospice)? DNR status @ -No What co-morbidities impacted this encounter? (DM, HTN, Smoking, COPD, CAD, Cancer, CVA, ARF, Chemo, Hep., AIDS, mental health diagnosis, sleep apnea, morbid obesity)? @ -None Was patient admitted / discharged? Hospital course, mention meds given and route, prescriptions, significant lab abnormalities, going to OR and other per tinent info. @ -67 Year-old male presents emergency department with severe pleuritic chest pain. Vital signs upon arrival shows respiratory rate of 30. He did appear to be dyspneic. Initial blood pressure was normal. Patient started on antibiotics and his blood pressure started to decrease. Patient given IV fluids. He does meet criteria for sepsis. Patient's started on IV pressors. Central venous catheter placed. White count 23.8. Positive anion gap acidosis. Coronal virus positive. Patient will be admitted to ICU. Undiagnosed new problem with uncertain prognosis? @ -No Drug Therapy requiring intensive monitoring for toxicity (Heparin, Nitro, Insulin, Cardizem)? @ -No Were any procedures done? @ -No Diagnosis/symptom? Acute, or Chronic, or Acute on Chronic? Uncomplicated (without systemic symptoms) or Complicated (systemic symptoms)? @ -Pneumonia sepsis Side effects of treatment? @ -No Exacerbation, Progression, or Severe Exacerbation? @ -No Poses a threat to life or bodily function? How? (Chest pain, [place], MD, pneumonia, PE, COPD, DKA, ARF, appy, cholecystitis, CVA, Diverticulitis, Homicidal, Suicidal, threat to staff... and all critical care pts) @ -yes - Lab Data Result diagrams: 06/30/23 11:50 06/30/23 11:50 Lab Results 06/30/23 06/30/23 06/30/23 Range/Units 11:50 11:50 11:50 WBC 33.8 H (3.8-10.6) k/uL RBC 5.38 (4.30-5.90) m/uL Hgb 15.5 (13.0-17.5) gm/dL Hct 47.4 (39.0-53.0) % MCV 88.2 (80.0-100.0) fL MCH 28.9 (25.0-35.0) pg MCHC 32.8 (31.0-37.0) g/dL RDW 14.6 (11.5-15.5) % Plt Count 271 (150-450) k/uL MPV 8.3 Neutrophils % (Manual) 73 % Band Neuts % (Manual) 9 % Lymphocytes % (Manual) 9 % Monocytes % (Manual) 9 % Metamyelocytes % 1 % Neutrophils # (Manual) 27.70 H (1.3-7.7) k/uL Lymphocytes # (Manual) 3.04 (1.0-4.8) k/uL Monocytes # (Manual) 3.04 H (0-1.0) k/uL Metamyelocytes # (Man) 0.34 H (0) k/uL Nucleated RBCs 0 (0-0) /100 WBC Manual Slide Review Performed RBC Morphology Normal PT 12.7 H (10.0-12.5) sec INR 1.2 H (<1.2) APTT 24.6 (22.0-30.0) sec Sodium (137-145) mmol/L Potassium (3.5-5.1) mmol/L Chloride (98-107) mmol/L Carbon Dioxide (22-30) mmol/L Anion Gap mmol/L BUN (9-20) mg/dL Creatinine (0.66-1.25) mg/dL Est GFR (CKD-EPI)AfAm (>60 ml/min/1.73 sqM) Est GFR (CKD-EPI)NonAf (>60 ml/min/1.73 sqM) Glucose (74-99) mg/dL Calcium (8.4-10.2) mg/dL Troponin I (0.000-0.034) ng/mL NT-Pro-B Natriuret Pep pg/mL Influenza Type A (PCR) Not Detected (Not Detectd) Influenza Type B (PCR) Not Detected (Not Detectd) RSV (PCR) Not Detected (Not Detectd) SARS-CoV-2 (PCR) Detected A (Not Detectd) 06/30/23 06/30/23 Range/Units 11:50 11:50 WBC (3.8-10.6) k/uL RBC (4.30-5.90) m/uL Hgb (13.0-17.5) gm/dL Hct (39.0-53.0) % MCV (80.0-100.0) fL MCH (25.0-35.0) pg MCHC (31.0-37.0) g/dL RDW (11.5-15.5) % Plt Count (150-450) k/uL MPV Neutrophils % (Manual) % Band Neuts % (Manual) % Lymphocytes % (Manual) % Monocytes % (Manual) % Metamyelocytes % % Neutrophils # (Manual) (1.3-7.7) k/uL Lymphocytes # (Manual) (1.0-4.8) k/uL Monocytes # (Manual) (0-1.0) k/uL Metamyelocytes # (Man) (0) k/uL Nucleated RBCs (0-0) /100 WBC Manual Slide Review RBC Morphology PT (10.0-12.5) sec INR (<1.2) APTT (22.0-30.0) sec Sodium 136 L (137-145) mmol/L Potassium 4.3 (3.5-5.1) mmol/L Chloride 109 H (98-107) mmol/L Carbon Dioxide 13 L (22-30) mmol/L Anion Gap 14 mmol/L BUN 33 H (9-20) mg/dL Creatinine 1.41 H (0.66-1.25) mg/dL Est GFR (CKD-EPI)AfAm 59 (>60 ml/min/1.73 sqM) Est GFR (CKD-EPI)NonAf 51 (>60 ml/min/1.73 sqM) Glucose 117 H (74-99) mg/dL Calcium 9.1 (8.4-10.2) mg/dL Troponin I 0.022 (0.000-0.034) ng/mL NT-Pro-B Natriuret Pep 695 pg/mL Influenza Type A (PCR) (Not Detectd) Influenza Type B (PCR) (Not Detectd) RSV (PCR) (Not Detectd) SARS-CoV-2 (PCR) (Not Detectd) Disposition Clinical Impression: Sepsis due to pneumonia Disposition: ADMITTED IP TO THIS HOSP Condition: Critical Referrals: Ifeanyi Peace MD [Primary Care Provider] - 1-2 days Decision Time: 14:53
--- NOTE | 2023-06-30 11:49 | XR ---
EXAMINATION TYPE: XR chest 2V DATE OF EXAM: 06/30/2023 COMPARISON: 07/28/2020 HISTORY: Shortness of breath TECHNIQUE: Frontal and lateral views of the chest are obtained. FINDINGS: Scattered senescent parenchymal changes noted. Hyperinflation compatible with COPD. Left perihilar left lower lobe airspace consolidation with increased density right medial lung base a s well. Findings suspicious for multifocal pneumonia. Heart size is stable. Mediastinal structures are stable and grossly unremarkable. No evidence for hilar prominence. Degenerative changes dorsal spine. IMPRESSION: 1. Multifocal pneumonia.
[2023-06-30 12:11] LABS: HCT 47.4 % (39.0-53.0); HGB 15.5 gm/dL (13.0-17.5); MCH 28.9 pg (25.0-35.0); MCHC 32.8 g/dL (31.0-37.0); MCV 88.2 fL (80.0-100.0); Mean Platelet Volume 8.3; Platelet Count 271 k/uL (150-450); RBC 5.38 m/uL (4.30-5.90); RDW 14.6 % (11.5-15.5); WBC 33.8 k/uL (3.8-10.6)
[2023-06-30 12:12] LABS: INR 1.2 (<1.2); Partial Thromboplastin Time 24.6 sec (22.0-30.0); Prothrombin Time 12.7 sec (10.0-12.5)
[2023-06-30 12:23] LABS: Band Neutrophils % 9 %; Lymphocytes # (M) 3.04 k/uL (1.0-4.8); Metamyelocytes # (M) 0.34 k/uL (0); Metamyelocytes % 1 %; Monocytes # (M) 3.04 k/uL (0-1.0); Neutrophils % (M) 73 %; Nucleated Red Blood Cells 0 /100 WBC (0-0); Total Cells Counted 200
[2023-06-30 12:24] LABS: RBC Morphology Normal
[2023-06-30 12:29] LABS: African American GFR (CKD) 59 (>60 ml/min/1.73 sqM); Anion Gap 14 mmol/L; Blood Urea Nitrogen 33 mg/dL (9-20); Calcium 9.1 mg/dL (8.4-10.2); Carbon Dioxide 13 mmol/L (22-30); Chloride 109 mmol/L (98-107); Glucose 117 mg/dL (74-99); Non-African American GFR(CKD) 51 (>60 ml/min/1.73 sqM); Potassium 4.3 mmol/L (3.5-5.1); Sodium 136 mmol/L (137-145)
[2023-06-30 12:37] LABS: NT-Pro-B-Type Natriuretic Pept 695 pg/mL
[2023-06-30] MEDS ORDERED: SODIUM CHLORIDE 0.9% 2,000 ML IV STA (13:16)
[2023-06-30] MEDS: fentaNYL (PF) 50 MCG/ML 2 ML AMP IVP PRN ×2 (13:24→19:38)
[2023-06-30] MEDS: NOREPINEPHRINE 4 MG in SODIUM CHLORIDE 0.9% 250 ML IV ONE ×2 (14:27→20:52)
[2023-06-30] MEDS ORDERED: HYDROmorphone 1 MG/ML 1 ML SYRINGE IVP STA (14:32)
--- NOTE | 2023-06-30 14:38 | CT ---
EXAMINATION TYPE: CT angio chest DATE OF EXAM: 06/30/2023 2:16 PM COMPARISON: 06/19/2023 HISTORY: severe left chest pain and SOB CT DLP: 836.2 mGycm Automated exposure control for dose reduction was used. CONTRAST: CTA scan of the thorax is performed with IV Contrast, patient injected with 80 mL of Isovue 300, pulm onary embolism protocol. 3-D postprocessing was performed.. FINDINGS: There is a large partially consolidative opacity in the left upper lobe which has increased significa ntly in size compared to the prior study. There is a persistent smaller partially consolidative opaci ty in the right lung base laterally which is slightly larger in size as well. There are marked chronic changes consistent with emphysema. There is a tiny filling defect in one of the subsegmental branches in the left lower lobe consistent with a small pulmonary embolus. Great vessels the chest are normal there is no mediastinal, hilar or axillary adenopathy. Limited scanning through the upper abdomen reveals no gross abnormality. No focal osseous lesions are seen. IMPRESSION: 1. Increasing airspace/consolidative infiltrates in the left upper lobe and right lung base consisten t with a worsening infectious process. 2. Tiny subsegmental pulmonary embolus in the left lower lobe.
[2023-06-30] MEDS ORDERED: NALOXONE 0.4 MG/ML 1 ML VIAL IV PRN (14:46)
[2023-06-30] MEDS ORDERED: ACETAMINOPHEN TAB 325 MG TAB PO PRN (15:04)
[2023-06-30] MEDS ORDERED: PNEUMONIA PROTOCOL UTILIZED 1 EACH MISC PO PRN ×2 (15:04→15:13)
[2023-06-30] MEDS ORDERED: VANCOMYCIN IV PER PHARMACY 1 EACH MISC MISCELLANE PRN (15:04)
[2023-06-30] MEDS ORDERED: ALBUTEROL NEBULIZED 2.5 MG/3 ML INHALATION PRN (15:04)
[2023-06-30] MEDS ORDERED: IPRATROPIUM-ALBUTEROL 3 ML NEB INHALATION PRN (15:13)
[2023-06-30] MEDS ORDERED: VANCOMYCIN 1,750 MG in SODIUM CHLORIDE 0.9% 500 ML 500 ML IVPB ONE (15:15)
--- NOTE | 2023-06-30 15:38 | P.HPIM ---
History of Present Illness H&P Date: 06/30/23 History of present illness; patient is 67-year-old gentleman past medical histo ry significant for hypertension, history of chronic atrial fibrillation who presented to the ER because of shortness of breath and left-sided chest pain that started last night. Patient stated he was all right last night when he started suddenly noticing sharp left-sided chest pain, severe intensity, nonradiating, aggravated by taking deep breaths. Patient also complaining of shortness of breath at that time. Denied any fever or chills at the home. Denied any complaint of nausea, vomiting or abdominal pain. Patient stated that he was having cough a week back and he saw his joint setter who ordered Medrol Dosepak and oral antibiotics. Cough continued to persist with these m edications. Because of sudden onset of chest pain and shortness of breath, patient was brought to the ER Initial lab work done in the ER showed WBC 33.8, hemoglobin 15.5,, sodium 136, potassium 4.3, BUN 33, creatinine 1.41, glucose 117, lactate, 3.9 EKG done in the ER heart rate 72, no ST segment elevation, no T-wave inversion seen. Chest x-ray done in the ER showed multifocal pneumonia CTA chest done showed increasing airspace/ consolidative infiltrate and left upper lobe and right lung base consistent with a worsening infectious process Patient was hypotensive in the ER, was started on Levophed, transferred to ICU REVIEW OF SYSTEMS: CONSTITUTIONAL: No fever, no malaise, no fatigue. HEENT: No recent visual problems or hearing problems. Denied any sore throat. CARDIOVASCULAR: As mentioned above PULMONARY: As mentioned above Mentioned above GASTROINTESTINAL: No diarrhea, no nausea, no vomiting, no abdominal pain. NEUROLOGICAL: No headaches, no weakness, no numbness. HEMATOLOGICAL: Denies any bleeding or petechiae. GENITOURINARY: Denies any burning micturition, frequency, or urgency. MUSCULOSKELETAL/RHEUMATOLOGICAL: Denies any joint pain, swelling, or any muscle pain. ENDOCRINE: Denies any polyuria or polydipsia. The rest of the 14-point review of systems is negative. PHYSICAL EXAMINATION: GENERAL: The patient is alert and oriented x3, in acute distress, chronically ill-looking HEENT: Pupils are round and equally reacting to light. EOMI. No scleral icterus. No conjunctival pallor. Normocephalic, atraumatic. No pharyngeal erythema. No thyromegaly. CARDIOVASCULAR: S1 and S2 present. No murmurs, rubs, or gallops. PULMONARY: Coarse breath sounds bilaterally, no wheezing or crackles. ABDOMEN: Soft, nontender, nondistended, normoactive bowel sounds. No palpable organomegaly. MUSCULOSKELETAL: No joint swelling or deformity. EXTREMITIES: No cyanosis, clubbing, or pedal edema. NEUROLOGICAL: Gross neurological examination did not reveal any focal deficits. SKIN: No rashes. Assessment and plan Acute hypoxic respiratory failure Severe sepsis COVID-19 pneumonia Bacterial pneumonia Monitor vital signs Monitor CBC Monitor CMP Continue telemetry monitoring Ordered blood cultures Ordered sputum cultures Trend lactic acid levels Patient started on Levophed Continue IV Zosyn and vancomycin Continue breathing treatments Pulmonology consulted ID consulted Labs and medication were reviewed.. Continue same treatment. Continue with s ymptomatic treatment. Resume home medication. Monitor labs and vitals. DVT and GI prophylaxis. Further recommendations as per clinical course of the patient Dictation was produced using [employer] dictation software. please excuse any grammatical, word or spelling errors. Past Medical History Past Medical History: Atrial Fibrillation, COPD, CVA/TIA, Hyperlipidemia, Hypertension, Myocardial Infarction ([place]), Osteoarthritis (OA), Pneumonia Additional Past Medical History / Comment(s): hx. aortic aneurysm-had surg., em physema, TIA's x2 couple years ago-no residual effects, DDD, spinal stenosis, pinched nerve down right leg Last Myocardial Infarction Date:: 2013 possibly History of Any Multi-Drug Resistant Organisms: None Reported Past Surgical History: Heart Catheterization With Stent, Orthopedic Surgery, Prostate Surgery Additional Past Surgical History / Comment(s): AAA 6-8 yrs. ago, left foot surgery x3, right knee arthroscopy, 9 stents total, laser surg. for enlarged prostate Past Anesthesia/Blood Transfusion Reactions: No Reported Reaction Date of Last Stent Placement:: 2020 Past Psychological History: No Psychological Hx Reported Smoking Status: Former smoker Past Alcohol Use History: None Reported Past Drug Use History: None Reported - Past Family History Mother Family Medical History: No Reported History Medications and Allergies Home Medications Medication Instructions Recorded Confirmed Type Enalapril [Vasotec] 10 mg PO DAILY 08/07/19 04/19/22 History [place]-3 Fatty Acids/Fish Oil [Fish 1 cap PO DAILY 08/07/19 04/19/22 History Oil 1,000 mg Softgel] Rivaroxaban [Xarelto] 20 mg PO HS 08/07/19 04/19/22 History Rosuvastatin [Crestor] 20 mg PO HS 08/07/19 04/19/22 History atenoloL [Tenormin] 25 mg PO DAILY 08/07/19 04/19/22 History Multivitamins, Thera [Multivitamin 1 tab PO DAILY #30 tablet 08/12/19 04/19/22 Rx (formulary)] Albuterol Inhaler [Ventolin Hfa 1 - 2 puff INHALATION Q6H PRN 04/19/22 04/21/22 History Inhaler] Clopidogrel [Plavix] 75 mg PO DAILY 04/19/22 04/21/22 History HYDROcodone/APAP 10-325MG [[place] 1 tab PO Q6HR PRN 04/19/22 04/19/22 History 10-325] oxyCODONE HCL/ACETAMINOPHEN 1 tab PO Q4HR PRN #30 tab 04/21/22 Rx [Percocet 7.5-325 mg] Allergies Allergy/AdvReac Type Severity Reaction Status Date / Time indomethacin [From Indocin] AdvReac rectal Verified 06/30/23 10:07 bleeding Physical Exam Vitals: Vital Signs Temp Pulse Resp BP Pulse Ox 06/30/23 14:30 84 81/64 06/30/23 14:18 76 18 72/46 97 06/30/23 13:26 74 26 H 95/52 97 06/30/23 13:08 76 26 H 78/39 96 06/30/23 11:52 30 H 06/30/23 10:04 98.3 F 72 34 H 155/88 93 L Intake and Output 06/30/23 06/30/23 06/30/23 06:59 14:59 22:59 Other: Weight 111.584 kg Results CBC & Chem 7: 06/30/23 11:50 06/30/23 11:50 Labs: Abnormal Lab Results - Last 24 Hours (Table) 06/30/23 06/30/23 06/30/23 Range/Units 11:50 11:50 11:50 WBC 33.8 H (3.8-10.6) k/uL Neutrophils # (Manual) 27.70 H (1.3-7.7) k/uL Monocytes # (Manual) 3.04 H (0-1.0) k/uL Metamyelocytes # (Man) 0.34 H (0) k/uL PT 12.7 H (10.0-12.5) sec INR 1.2 H (<1.2) Sodium (137-145) mmol/L Chloride (98-107) mmol/L Carbon Dioxide (22-30) mmol/L BUN (9-20) mg/dL Creatinine (0.66-1.25) mg/dL Glucose (74-99) mg/dL Plasma Lactic Acid Po (0.7-2.0) mmol/L SARS-CoV-2 (PCR) Detected A (Not Detectd) 06/30/23 06/30/23 Range/Units 11:50 13:18 WBC (3.8-10.6) k/uL Neutrophils # (Manual) (1.3-7.7) k/uL Monocytes # (Manual) (0-1.0) k/uL Metamyelocytes # (Man) (0) k/uL PT (10.0-12.5) sec INR (<1.2) Sodium 136 L (137-145) mmol/L Chloride 109 H (98-107) mmol/L Carbon Dioxide 13 L (22-30) mmol/L BUN 33 H (9-20) mg/dL Creatinine 1.41 H (0.66-1.25) mg/dL Glucose 117 H (74-99) mg/dL Plasma Lactic Acid Po 3.9 H* (0.7-2.0) mmol/L SARS-CoV-2 (PCR) (Not Detectd)
[2023-06-30] MEDS: SODIUM CHLORIDE 0.9% 1,000 ML IV SCH ×2 (15:59→18:54)
[2023-06-30] MEDS: PIPERACILLIN-TAZOBACTAM 3.375 GM in SODIUM CHLORIDE 0.9% 100 ML IVPB SCH (16:00)
[2023-06-30] MEDS: DEXAMETHASONE SOD PHOSPHATE 10 MG/ML 1 ML VIAL IVP SCH (16:05)
--- NOTE | 2023-06-30 16:29 | P.CNPUL ---
History of Present Illness Consult date: 06/30/23 Reason for consult: dyspnea, pneumonia, pulmonary fibrosis Chief complaint: Shortness of breath and left-sided chest. History of present illness: This is a 67-year-old white male, known history of pulmonary fibrosis, patient normally sees , patient is not on any specific treatment for his pulmonary fibrosis, he was recently seen in the office, and he was complaining of cough, shortness of breath, patient received Depo-Medrol injection, and he was placed on antibiotics. This was only a few days ago. Over the last few days, the patient seems to be getting worse, now he is developing left-sided chest pain which started last night. He is also developing shortness of breath, some cough, but no fever, no chills, no hemoptysis. was seen in [facility] ER, and a CT of the chest showed significant infiltrate in the left lower lobe consistent with left lower lobe pneumonia it also showed and raised the possibility of a small subsegmental pulmonary embolus. Patient is maintained on Xarelto. He does have history of chronic atrial fibrillation. And he is compliant with her Xarelto. I reviewed the CT of the chest myself, I did not feel that the diagnosis of pulmonary embolism is conclusive. Specially what it is a subsegmental pulmonary artery finding. Nonetheless the patient is on anticoagulation therapy, however I'm quite concerned about his significant pneumonic process involving the left lower lobe. Patient was also noted to have leukocytosis with WBC count as high as 33.6 rest of the labs were basically unremarkable, lactic level was 3.9. And in addition to all of this the patient had positive COVID-19 PCR. Patient was relatively hypotensive in the ER, received fluid boluses and he continued to have low blood pressure and the patient was placed on norepinephrine at 0.03 mcg/kg/m, I saw the patient in the ER, and I recommended admitting the patient to the ICU. I believe the patient is septic and he will be treated as per protocol for sepsis and septic shock. Patient did receive Decadron, he is also now on Zosyn and he is maintained on Xarelto. Vancomycin was also given in addition to this, patient is on bronchodilators in the form of DuoNeb P Review of Systems CONSTITUTIONAL: No fever no chills, no weight loss. HEENT: Denies any sore throat. Denies any headache. CARDIOVASCULAR: Negative PULMONARY: Mostly left sided chest pain mostly chest wall pain and also pleuritic in nature, shortness of breath and cough GASTROINTESTINAL: Negative NEUROLOGICAL: Negative HEMATOLOGICAL: Negative GENITOURINARY: Negative MUSCULOSKELETAL/RHEUMATOLOGICAL: Negative ENDOCRINE: Negative Past Medical History Past Medical History: Atrial Fibrillation, COPD, CVA/TIA, Hyperlipidemia, Hypertension, Myocardial Infarction (OR), Osteoarthritis (OA), Pneumonia Additional Past Medical History / Comment(s): hx. aortic aneurysm-had surg., emphysema, TIA's x2 couple years ago-no residual effects, DDD, spinal stenosis, pinched nerve down right leg Last Myocardial Infarction Date:: 2013 possibly History of Any Multi-Drug Resistant Organisms: None Reported Past Surgical History: Heart Catheterization With Stent, Orthopedic Surgery, Prostate Surgery Additional Past Surgical History / Comment(s): AAA 6-8 yrs. ago, left foot surgery x3, right knee arthroscopy, 9 stents total, laser surg. for enlarged prostate Past Anesthesia/Blood Transfusion Reactions: No Reported Reaction Date of Last Stent Placement:: 2020 Past Psychological History: No Psychological Hx Reported Smoking Status: Former smoker Past Alcohol Use History: None Reported Past Drug Use History: None Reported - Past Family History Mother Family Medical History: No Reported History Medications and Allergies Home Medications Medication Instructions Recorded Confirmed Type Enalapril [Vasotec] 10 mg PO DAILY 08/07/19 04/19/22 History [place]-3 Fatty Acids/Fish Oil [Fish 1 cap PO DAILY 08/07/19 04/19/22 History Oil 1,000 mg Softgel] Rivaroxaban [Xarelto] 20 mg PO HS 08/07/19 04/19/22 History Rosuvastatin [Crestor] 20 mg PO HS 08/07/19 04/19/22 History atenoloL [Tenormin] 25 mg PO DAILY 08/07/19 04/19/22 History Multivitamins, Thera [Multivitamin 1 tab PO DAILY #30 tablet 08/12/19 04/19/22 Rx (formulary)] Albuterol Inhaler [Ventolin Hfa 1 - 2 puff INHALATION Q6H PRN 04/19/22 04/21/22 History Inhaler] Clopidogrel [Plavix] 75 mg PO DAILY 04/19/22 04/21/22 History HYDROcodone/APAP 10-325MG [[place]el[place] 1 tab PO Q6HR PRN 04/19/22 04/19/22 History 10-325] oxyCODONE HCL/ACETAMINOPHEN 1 tab PO Q4HR PRN #30 tab 04/21/22 Rx [Percocet 7.5-325 mg] Allergies Allergy/AdvReac Type Severity Reaction Status Date / Time indomethacin [From Indocin] AdvReac rectal Verified 06/30/23 10:07 bleeding Physical Exam Vitals: Vital Signs Temp Pulse Resp BP Pulse Ox 06/30/23 16:06 98.0 F 84 24 89/41 96 06/30/23 14:30 84 81/64 06/30/23 14:18 76 18 72/46 97 06/30/23 13:26 74 26 H 95/52 97 06/30/23 13:08 76 26 H 78/39 96 06/30/23 11:52 30 H 06/30/23 10:04 98.3 F 72 34 H 155/88 93 L Intake and Output 06/30/23 06/30/23 06/30/23 06:59 14:59 22:59 Other: Weight 111.584 kg Physical Exam: Revealed a 67-year-old white male in no distress however he looks chronically ill. Head: Atraumatic, normocephalic HEENT:[Neck is supple.] [No neck masses.] [No thyromegaly.] [No JVD.]EOMI, nonicteric. Chest: Coarse and harsh breath sound bilaterally no wheezing minimal crackles at the bases, however the patient has exquisite tenderness in the left lower chest over the lower ribs posterolaterally Cardiac Exam: Irregular irregular rhythm. [Normal S1 and S2, no S3 gallop, no murmur.] Abdomen: [Obese, Soft, nontender, no megaly, no rebound, no guarding, normal bowel sounds.] Extremities: [No clubbing, no edema, no cyanosis.] Neurological Exam: Alert and oriented 3. [No focal neurologic deficit.] Psychiatric: Normal mood affect and normal mental status examination. Skin: No rashes. Results - Laboratory Findings CBC and BMP: 06/30/23 11:50 06/30/23 11:50 PT/INR, D-dimer PT 12.7 sec (10.0-12.5) H 06/30/23 11:50 INR 1.2 (<1.2) H 06/30/23 11:50 Abnormal lab findings: Abnormal Labs 06/30/23 06/30/23 06/30/23 11:50 11:50 11:50 WBC 33.8 H Neutrophils # (Manual) 27.70 H Monocytes # (Manual) 3.04 H Metamyelocytes # (Man) 0.34 H PT 12.7 H INR 1.2 H Sodium Chloride Carbon Dioxide BUN Creatinine Glucose Plasma Lactic Acid Po SARS-CoV-2 (PCR) Detected A 06/30/23 06/30/23 11:50 13:18 WBC Neutrophils # (Manual) Monocytes # (Manual) Metamyelocytes # (Man) PT INR Sodium 136 L Chloride 109 H Carbon Dioxide 13 L BUN 33 H Creatinine 1.41 H Glucose 117 H Plasma Lactic Acid Po 3.9 H* SARS-CoV-2 (PCR) - Diagnostic Findings CT scan - chest: image reviewed (CT of the chest from [facility] was and the patient clearly has extensive left lower lobe pneumonia, possible pulm onary embolism, patient has also underlying subpleural fibrosis consistent with IPF.) Assessment and Plan Assessment: Impression: Acute left lower lobe pneumonia, most likely bacterial in nature although COVID- 19 pneumonia is not entirely ruled out. Acute COVID-19 infection Sepsis and septic shock secondary to pneumonia History of underlying pulmonary fibrosis/IPF History of lung nodule being monitored on outpatient basis by Dr. Chaudhry and the patient had a recent PET scan in [place] history of chronic atrial fibrillation Coronary arteriosclerosis and previous stent placement History of aortic aneurysm and previous stent placement/abdominal aortic aneurysm Degenerative joint disease Dyslipidemia History of underlying COPD Chest pain, pleuritic and musculoskeletal in nature Possible pulmonary embolism clinically I feel this is less likely Acute kidney injury secondary to sepsis and hypotension and acute tubular necrosis Recommendation: Patient will be admitted to the ICU Patient will be given fluid boluses and will maintain on norepinephrine titrate accordingly Treat with Zosyn for his extensive left lower lobe pneumonia, caution with va ncomycin considering the patient has acute kidney injury from ATN Resume Xarelto Resume bronchodilators including DuoNeb updrafts 4 times a day and when necessary Pain medications in the form of DuoNeb updrafts 4 times a day and when necessary Continue Decadron Monitor daily electrolytes and renal profile GI and DVT prophylaxis Resume home meds Titrate oxygen accordingly Patient is critically ill We will continue to follow Time with Patient: Greater than 30
[2023-06-30 17:33] LABS: Glucose,Whole Blood 141 mg/dL (70-110)
[2023-06-30] MEDS: RIVAROXABAN 20 MG TAB PO SCH (21:55)
[2023-07-01] MEDS: PIPERACILLIN-TAZOBACTAM 3.375 GM in SODIUM CHLORIDE 0.9% 100 ML IVPB SCH ×3 (00:49→17:45)
[2023-07-01] MEDS ORDERED: DEXTROSE 5% IN WATER 100 ML with AMIODARONE 150 MG IV ONE (02:00)
[2023-07-01] MEDS: SODIUM CHLORIDE 0.9% 1,000 ML IV SCH ×2 (02:04→12:00)
[2023-07-01] MEDS ORDERED: AMIODARONE 360 MG in DEXTROSE 5% IN WATER 200 ML IV ONE ×2 (02:30)
[2023-07-01] MEDS: fentaNYL (PF) 50 MCG/ML 2 ML AMP IVP PRN (04:54)
[2023-07-01] MEDS ORDERED: VANCOMYCIN 1,750 MG in SODIUM CHLORIDE 0.9% 500 ML 500 ML IVPB SCH (05:00)
[2023-07-01] MEDS: NOREPINEPHRINE 4 MG in SODIUM CHLORIDE 0.9% 250 ML IV ONE (05:11)
[2023-07-01 05:44] LABS: HCT 41.2 % (39.0-53.0); HGB 13.7 gm/dL (13.0-17.5); MCH 29.3 pg (25.0-35.0); MCHC 33.3 g/dL (31.0-37.0); MCV 87.8 fL (80.0-100.0); Mean Platelet Volume 7.5; Platelet Count 222 k/uL (150-450); RBC 4.69 m/uL (4.30-5.90); RDW 14.8 % (11.5-15.5); WBC 27.3 k/uL (3.8-10.6)
[2023-07-01 06:01] LABS: African American GFR (CKD) >90 (>60 ml/min/1.73 sqM); Anion Gap 8 mmol/L; Blood Urea Nitrogen 26 mg/dL (9-20); Calcium 7.8 mg/dL (8.4-10.2); Carbon Dioxide 15 mmol/L (22-30); Chloride 113 mmol/L (98-107); Glucose 178 mg/dL (74-99); Non-African American GFR(CKD) 89 (>60 ml/min/1.73 sqM); Potassium 4.1 mmol/L (3.5-5.1); Sodium 136 mmol/L (137-145)
[2023-07-01 06:29] LABS: C Reactive Protein 32.4 mg/dL (<1.0)
[2023-07-01] MEDS: AMIODARONE 450 MG in DEXTROSE 5% IN WATER 250 ML IV SCH ×4 (07:00→21:42)
--- NOTE | 2023-07-01 07:04 | XR ---
EXAM: XR Chest, 2 Views CLINICAL HISTORY: ITS.REASON XR Reason: Pneumonia TECHNIQUE: Frontal and lateral views of the chest. COMPARISON: 06/30/2023 FINDINGS: Lungs: There is some continued airspace opacification in the left upper lobe. Mild airspace opacification in the right midlung. Mild bibasilar opacification. Pleural space: Unremarkable. No pneumothorax. Heart: No cardiomegaly. Bones/joints: No acute osseous abnormality. IMPRESSION: No significant change in bilateral airspace disease greater on the left.
[2023-07-01] MEDS: DEXAMETHASONE SOD PHOSPHATE 10 MG/ML 1 ML VIAL IVP SCH (08:39)
[2023-07-01] MEDS: HYDROmorphone 1 MG/ML 1 ML SYRINGE IVP PRN (11:00)
[2023-07-01] MEDS: CHOLECALCIFEROL 125 MCG (5000 IU) TABLET PO SCH (11:58)
[2023-07-01] MEDS: ASCORBIC ACID 500 MG TAB PO SCH (11:59)
[2023-07-01] MEDS: ZINC SULFATE 220 MG CAP PO SCH (11:59)
--- NOTE | 2023-07-01 12:33 | P.PN ---
Subjective Progress Note Date: 07/01/23 patient is 67-year-old gentleman past medical history significant for hyp ertension, history of chronic atrial fibrillation who presented to the ER because of shortness of breath and left-sided chest pain that started last night. Patient stated he was all right last night when he started suddenly noticing sharp left-sided chest pain, severe intensity, nonradiating, aggravated by taking deep breaths. Patient also complaining of shortness of breath at that time. Denied any fever or chills at the home. Denied any complaint of nausea, vomiting or abdominal pain. 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 Cough continued to persist with these medications. Because of sudden onset of chest pain and shortness of breath, patient was brought to the ER Initial lab work done in the ER showed WBC 33.8, hemoglobin 15.5,, sodium 136, potassium 4.3, BUN 33, creatinine 1.41, glucose 117, lactate, 3.9 EKG done in the ER heart rate 72, no ST segment elevation, no T-wave inversion seen. Chest x-ray done in the ER showed multifocal pneumonia CTA chest done showed increasing airspace/ consolidative infiltrate and left upper lobe and right lung base consistent with a worsening infectious process Patient was hypotensive in the ER, was started on Levophed, transferred to ICU 07/01. Patient seen and examined. States breathing has improved. Patient has been weaned off Levophed drip. Currently on 2 L of oxygen. Gets short of breath on exertion. Vital signs otherwise stable REVIEW OF SYSTEMS: CONSTITUTIONAL: No fever, no malaise,. CARDIOVASCULAR: No chest pain, no palpitations, no syncope. PULMONARY: No shortness of breath, no cough, GASTROINTESTINAL: No diarrhea, no nausea, no vomiting, no abdominal pain. NEUROLOGICAL: No headaches, no weakness, PHYSICAL EXAMINATION: GENERAL: The patient is alert and oriented x3, not in any acute distress. Well developed, well nourished. HEENT: Pupils are round and equally reacting to light. EOMI. No scleral icterus. No conjunctival pallor. Normocephalic, atraumatic. No pharyngeal erythema. No thyromegaly. CARDIOVASCULAR: S1 and S2 present. No murmurs, rubs, or gallops. PULMONARY: Chest is clear to auscultation, no wheezing or crackles. ABDOMEN: Soft, nontender, nondistended, normoactive bowel sounds. No palpable organomegaly. MUSCULOSKELETAL: No joint swelling or deformity. EXTREMITIES: No cyanosis, clubbing, or pedal edema. NEUROLOGICAL: Gross neurological examination did not reveal any focal deficits. SKIN: No rashes. Assessment and plan Acute hypoxic respiratory failure Severe sepsis COVID-19 pneumonia Bacterial pneumonia History of underlying pulmonary fibrosis/IPF History of lung nodule history of chronic atrial fibrillation Coronary arteriosclerosis and previous stent placement History of aortic aneurysm and previous stent placement/abdominal aortic aneurysm Degenerative joint disease Dyslipidemia History of underlying COPD Chest pain, pleuritic and musculoskeletal in nature Acute kidney injury secondary to sepsis and hypotension and acute tubular necros is Monitor vital signs Monitor CBC Monitor CMP Continue telemetry monitoring Follow-up on blood cultures Follow-up on sputum cultures Trend lactic acid levels Continue IV Zosyn and vancomycin Continue breathing treatments Pulmonology following ID following Labs and medication were reviewed.. Continue same treatment. Continue with symptomatic treatment. Resume home medication. Monitor labs and vitals. DVT and GI prophylaxis. Further recommendations as per clinical course of the patient Dictation was produced using [employer] dictation software. please excuse any gramm atical, word or spelling errors. Objective - Vital Signs Vital signs: Vital Signs Temp 98.9 F 07/01/23 04:00 Pulse 102 H 07/01/23 08:00 Resp 22 07/01/23 08:00 BP 114/68 07/01/23 08:00 Pulse Ox 96 07/01/23 08:00 FiO2 Intake & Output 06/30/23 07/01/23 07/01/23 18:59 06:59 18:59 Intake Total 083.104 7634.097 176.056 Output Total 0 1250 Balance 732.910 4997.097 176.056 Weight 111.584 kg 110.3 kg 120.1 kg Intake: IV 260 2060 130 Sodium Chloride 0.9% 1, 260 1560 130 000 ml @ 130 mls/hr IV . [id number] [facility] Rx#:[id number] Vancomycin 1,750 mg In 500 Sodium Chloride 0.9% 500 ml 500 ml @ 167 mls/hr IVPB ONCE ONE Rx#: [id number] Intake, IV Titration 572.202 392.097 46.056 Amount Norepinephrine 4 mg In 72.202 392.097 46.056 Sodium Chloride 0.9% 250 ml @ 0.03 MCG/KG/MIN 12. 754 mls/hr IV .[id number] ONE Rx#:[id number] Vancomycin 1,750 mg In 500 Sodium Chloride 0.9% 500 ml 500 ml @ 167 mls/hr IVPB Q16H [facility] Rx#: [id number] Output: Urine 0 1250 Other: Voiding Method Urinal Urinal # Voids 0 - Labs CBC & Chem 7: 07/01/23 05:31 07/01/23 05:31 Labs: Abnormal Lab Results - Last 24 Hours (Table) 06/30/23 06/30/23 06/30/23 Range/Units 11:50 11:50 11:50 WBC 33.8 H (3.8-10.6) k/uL Neutrophils # (Manual) 27.70 H (1.3-7.7) k/uL Monocytes # (Manual) 3.04 H (0-1.0) k/uL Metamyelocytes # (Man) 0.34 H (0) k/uL PT 12.7 H (10.0-12.5) sec INR 1.2 H (<1.2) Sodium (137-145) mmol/L Chloride (98-107) mmol/L Carbon Dioxide (22-30) mmol/L BUN (9-20) mg/dL Creatinine (0.66-1.25) mg/dL Glucose (74-99) mg/dL POC Glucose (mg/dL) (70-110) mg/dL Plasma Lactic Acid Po (0.7-2.0) mmol/L Calcium (8.4-10.2) mg/dL C-Reactive Protein (<1.0) mg/dL Procalcitonin (0.02-0.09) ng/mL SARS-CoV-2 (PCR) Detected A (Not Detectd) 06/30/23 06/30/23 06/30/23 Range/Units 11:50 11:50 13:18 WBC (3.8-10.6) k/uL Neutrophils # (Manual) (1.3-7.7) k/uL Monocytes # (Manual) (0-1.0) k/uL Metamyelocytes # (Man) (0) k/uL PT (10.0-12.5) sec INR (<1.2) Sodium 136 L (137-145) mmol/L Chloride 109 H (98-107) mmol/L Carbon Dioxide 13 L (22-30) mmol/L BUN 33 H (9-20) mg/dL Creatinine 1.41 H (0.66-1.25) mg/dL Glucose 117 H (74-99) mg/dL POC Glucose (mg/dL) (70-110) mg/dL Plasma Lactic Acid Po 3.9 H* (0.7-2.0) mmol/L Calcium (8.4-10.2) mg/dL C-Reactive Protein (<1.0) mg/dL Procalcitonin 3.68 H (0.02-0.09) ng/mL SARS-CoV-2 (PCR) (Not Detectd) 06/30/23 06/30/23 06/30/23 Range/Units 17:22 17:41 21:09 WBC (3.8-10.6) k/uL Neutrophils # (Manual) (1.3-7.7) k/uL Monocytes # (Manual) (0-1.0) k/uL Metamyelocytes # (Man) (0) k/uL PT (10.0-12.5) sec INR (<1.2) Sodium (137-145) mmol/L Chloride (98-107) mmol/L Carbon Dioxide (22-30) mmol/L BUN (9-20) mg/dL Creatinine (0.66-1.25) mg/dL Glucose (74-99) mg/dL POC Glucose (mg/dL) 141 H (70-110) mg/dL Plasma Lactic Acid Po 3.4 H* 2.2 H* (0.7-2.0) mmol/L Calcium (8.4-10.2) mg/dL C-Reactive Protein (<1.0) mg/dL Procalcitonin (0.02-0.09) ng/mL SARS-CoV-2 (PCR) (Not Detectd) 07/01/23 07/01/23 07/01/23 Range/Units 00:17 05:31 05:31 WBC 27.3 H (3.8-10.6) k/uL Neutrophils # (Manual) (1.3-7.7) k/uL Monocytes # (Manual) (0-1.0) k/uL Metamyelocytes # (Man) (0) k/uL PT (10.0-12.5) sec INR (<1.2) Sodium 136 L (137-145) mmol/L Chloride 113 H (98-107) mmol/L Carbon Dioxide 15 L (22-30) mmol/L BUN 26 H (9-20) mg/dL Creatinine (0.66-1.25) mg/dL Glucose 178 H (74-99) mg/dL POC Glucose (mg/dL) (70-110) mg/dL Plasma Lactic Acid Po 3.1 H* (0.7-2.0) mmol/L Calcium 7.8 L (8.4-10.2) mg/dL C-Reactive Protein 32.4 H (<1.0) mg/dL Procalcitonin (0.02-0.09) ng/mL SARS-CoV-2 (PCR) (Not Detectd) 07/01/23 Range/Units 05:31 WBC (3.8-10.6) k/uL Neutrophils # (Manual) (1.3-7.7) k/uL Monocytes # (Manual) (0-1.0) k/uL Metamyelocytes # (Man) (0) k/uL PT (10.0-12.5) sec INR (<1.2) Sodium (137-145) mmol/L Chloride (98-107) mmol/L Carbon Dioxide (22-30) mmol/L BUN (9-20) mg/dL Creatinine (0.66-1.25) mg/dL Glucose (74-99) mg/dL POC Glucose (mg/dL) (70-110) mg/dL Plasma Lactic Acid Po 2.6 H* (0.7-2.0) mmol/L Calcium (8.4-10.2) mg/dL C-Reactive Protein (<1.0) mg/dL Procalcitonin (0.02-0.09) ng/mL SARS-CoV-2 (PCR) (Not Detectd)
--- NOTE | 2023-07-01 14:12 | P.PN ---
Subjective Progress Note Date: 07/01/23 Principal diagnosis: Acute community-acquired left lower lobe pneumonia, COVID-19 infection, possible COVID-19 pneumonia This is a 67-year-old white male, known history of pulmonary fibrosis, patient normally sees , patient is not on any specific treatment for his pulmo nary fibrosis, he was recently seen in the office, and he was complaining of cough, shortness of breath, patient received Depo-Medrol injection, and he was placed on antibiotics. This was only a few days ago. Over the last few days, the patient seems to be getting worse, now he is developing left-sided chest pain which started last night. He is also developing shortness of breath, some cough, but no fever, no chills, no hemoptysis. was seen in [facility] ER, and a CT of the chest showed significant infiltrate in the left lower lobe consistent with left lower lobe pneumonia it also showed and raised the possibility of a small subsegmental pulmonary embolus. Patient is daren ntained on Xarelto. He does have history of chronic atrial fibrillation. And he is compliant with her Xarelto. I reviewed the CT of the chest myself, I did not feel that the diagnosis of pulmonary embolism is conclusive. Specially what it is a subsegmental pulmonary artery finding. Nonetheless the patient is on anticoagulation therapy, however I'm quite concerned about his significant pneumonic process involving the left lower lobe. Patient was also noted to have leukocytosis with WBC count as high as 33.6 rest of the labs were basically unremarkable, lactic level was 3.9. And in addition to all of this the patient had positive COVID-19 PCR. Patient was relatively hypotensive in the ER, received fluid boluses and he continued to have low blood pressure and the patient was placed on norepinephrine at 0.03 mcg/kg/m, I saw the patient in the ER, and I recommended admitting the patient to the ICU. I believe the patient is septic and he will be treated as per protocol for sepsis and septic shock. Patient did receive Decadron, he is also now on Zosyn and he is maintained on Xarelto. Vancomycin was also given in addition to this, patient is on bronchodilators in the form of DuoNeb Patient was reevaluated today on 07/01/23, remains in the ICU,, patient went on to develop last night atrial fibrillation with RVR, patient is known to have history of atrial fibrillation, and I recommended amiodarone bolus and amiodarone drip. And recommended cardiac consultation to be done this morning. Patient remains on Decadron, Xarelto, vancomycin, and Zosyn. Patient is on few liters nasal cannula, he is hemodynamically stable, blood pressure is 96/59 with a mean of 72 O2 saturations 94%. Continues to have intermittent coughing, and some significant left sided pleuritic chest pain, requiring Dilaudid for pain management. CT angiogram on admission clearly showed evidence of left sided infiltrate, and subsegmental pulmonary embolus in the left lower lobe/tiny labs today showed improvement in his leukocytosis with WBC count down to 27.3 hemoglobin 13.7 basic metabolic profile is normal renal profile is normal. Patient is empirically on Zosyn and vancomycin, cultures are pending. Objective - Vital Signs Vital signs: Vital Signs Temp 99.5 F 07/01/23 12:00 Pulse 98 07/01/23 12:45 Resp 17 07/01/23 12:45 BP 96/59 07/01/23 12:45 Pulse Ox 94 L 07/01/23 12:45 FiO2 Intake & Output 06/30/23 07/01/23 07/01/23 18:59 06:59 18:59 Intake Total 814.010 4688.097 1300.945 Output Total 0 1250 700 Balance 917.445 9326.097 600.945 Weight 111.584 kg 110.3 kg 120.1 kg Intake: IV 260 2060 650 Sodium Chloride 0.9% 1, 260 1560 650 000 ml @ 130 mls/hr IV . Q7H42M [facility] Rx#:[id number] Vancomycin 1,750 mg In 500 Sodium Chloride 0.9% 500 ml 500 ml @ 167 mls/hr IVPB ONCE ONE Rx#: [id number] Intake, IV Titration 572.202 392.097 650.945 Amount Norepinephrine 4 mg In 72.202 392.097 50.945 Sodium Chloride 0.9% 250 ml @ 0.03 MCG/KG/MIN 12. 754 mls/hr IV .[id number] ONE Rx#:[id number] Piperacillin-Tazobactam 3 600 .375 gm In Sodium Chloride 0.9% 100 ml @ 25 mls/hr IVPB Q8HR MIN Rx# :[id number] Vancomycin 1,750 mg In 500 Sodium Chloride 0.9% 500 ml 500 ml @ 167 mls/hr IVPB Q16H [facility] Rx#: [id number] Output: Urine 0 1250 700 Other: Voiding Method Urinal Urinal # Voids 0 - Exam Physical Exam: Revealed a 67-year-old white male in no distress however he looks chronically ill. Head: Atraumatic, normocephalic HEENT:[Neck is supple.] [No neck masses.] [No thyromegaly.] [No JVD.]EOMI, nonicteric. Chest: Echo from the rhonchi at the left base Tenderness of the left chest wall that persists. Cardiac Exam: Irregular irregular rhythm. [Normal S1 and S2, no S3 gallop, no murmur.] Abdomen: [Obese, Soft, nontender, no megaly, no rebound, no guarding, normal bowel sounds.] Extremities: [No clubbing, no edema, no cyanosis.] Neurological Exam: Alert and oriented 3. [No focal neurologic deficit.] Psychiatric: Normal mood affect and normal mental status examination. Skin: No rashes. - Labs CBC & Chem 7: 07/01/23 05:31 07/01/23 05:31 Labs: Abnormal Lab Results - Last 24 Hours (Table) 06/30/23 06/30/23 06/30/23 Range/Units 11:50 13:18 17:22 WBC (3.8-10.6) k/uL Sodium (137-145) mmol/L Chloride (98-107) mmol/L Carbon Dioxide (22-30) mmol/L BUN (9-20) mg/dL Glucose (74-99) mg/dL POC Glucose (mg/dL) 141 H (70-110) mg/dL Plasma Lactic Acid Po 3.9 H* (0.7-2.0) mmol/L Calcium (8.4-10.2) mg/dL C-Reactive Protein (<1.0) mg/dL Procalcitonin 3.68 H (0.02-0.09) ng/mL 06/30/23 06/30/23 07/01/23 Range/Units 17:41 21:09 00:17 WBC (3.8-10.6) k/uL Sodium (137-145) mmol/L Chloride (98-107) mmol/L Carbon Dioxide (22-30) mmol/L BUN (9-20) mg/dL Glucose (74-99) mg/dL POC Glucose (mg/dL) (70-110) mg/dL Plasma Lactic Acid Po 3.4 H* 2.2 H* 3.1 H* (0.7-2.0) mmol/L Calcium (8.4-10.2) mg/dL C-Reactive Protein (<1.0) mg/dL Procalcitonin (0.02-0.09) ng/mL 07/01/23 07/01/23 07/01/23 Range/Units 05:31 05:31 05:31 WBC 27.3 H (3.8-10.6) k/uL Sodium 136 L (137-145) mmol/L Chloride 113 H (98-107) mmol/L Carbon Dioxide 15 L (22-30) mmol/L BUN 26 H (9-20) mg/dL Glucose 178 H (74-99) mg/dL POC Glucose (mg/dL) (70-110) mg/dL Plasma Lactic Acid Po 2.6 H* (0.7-2.0) mmol/L Calcium 7.8 L (8.4-10.2) mg/dL C-Reactive Protein 32.4 H (<1.0) mg/dL Procalcitonin (0.02-0.09) ng/mL 07/01/23 Range/Units 11:00 WBC (3.8-10.6) k/uL Sodium (137-145) mmol/L Chloride (98-107) mmol/L Carbon Dioxide (22-30) mmol/L BUN (9-20) mg/dL Glucose (74-99) mg/dL POC Glucose (mg/dL) (70-110) mg/dL Plasma Lactic Acid Po 2.3 H* (0.7-2.0) mmol/L Calcium (8.4-10.2) mg/dL C-Reactive Protein (<1.0) mg/dL Procalcitonin (0.02-0.09) ng/mL Assessment and Plan Assessment: Impression: Acute left lower lobe pneumonia, most likely bacterial in nature although COVID- 19 pneumonia is not entirely ruled out. Acute COVID-19 infection Sepsis and septic shock secondary to pneumonia, patient required briefly a course of norepinephrine but he is presently off norepinephrine and he received 2 L fluid boluses while in the ER. History of underlying pulmonary fibrosis/IPF History of lung nodule being monitored on outpatient basis by Dr. Chaudhry and the patient had a recent PET scan in [place] history of chronic atrial fibrillation Coronary arteriosclerosis and previous stent placement History of aortic aneurysm and previous stent placement/abdominal aortic aneurysm Degenerative joint disease Dyslipidemia History of underlying COPD Chest pain, pleuritic and musculoskeletal in nature Possible pulmonary embolism clinically I feel this is less likely Acute kidney injury secondary to sepsis and hypotension and acute tubular necrosis Recommendation: Continue to monitor the patient is ICU Continue IV fluid, presently off norepinephrine Continue Zosyn and vancomycin for now Continue Xarelto patient does have history of chronic atrial fibrillation and he seems to have a questionable left lower lobe pulmonary embolus Continue bronchodilators including DuoNeb updrafts 4 times a day and when necessary Continue Dilaudid for pain management Continue Decadron Continue to monitor daily labs GI and DVT prophylaxis Titrate oxygen accordingly Patient is critically ill Critical care time is over 30 We will continue to follow Time with Patient: Greater than 30
--- NOTE | 2023-07-01 15:12 | P.CRDCN ---
History of Present Illness Consult date: 07/01/23 Chief complaint: Shortness of breath History of present illness: The patient is a 67-year-old gentleman who sees a [employer] in [place] area w ith a past medical history significant for coronary artery disease with prior angioplasty with unknown details as well as history of permanent atrial fibrillation on oral anticoagulation as well as hypertension and dyslipidemia and pulmonary fibrosis. The patient presented to the hospital was increasing shortness of breath associated with cough with sputum production.The patient was diagnosed with COVID-19 infection. He was hypoxic and he was on oxygen at 2 L right now. He was not on oxygen at home. No pain in the chest and no dizziness or lightheadedness and no feeling of heart racing or fluttering and no presyncope or syncope. We consulted to see the patient for the management of atrial fibrillation with RVR when the patient presented to the hospital and subsequently he was started on amiodarone IV by the pulmonary/critical care team. Currently he has been maintaining heart rate in the 100. He is hypotensive and currently he is on a small dose of norepinephrine. The EKG showed atrial fibrillation with diffuse nonspecific ST and T wave abnormalities. He was restarted back on oral anticoagulation. The examination is remarkable for distant heart sounds with irregular rhythm and diminished breathing sounds bilaterally with bilateral rhonchi likely related to pulmonary fibrosis and not heart failure. No lower extremity is edema noted. He doesn't look in overt congestive heart failure Assessment COVID-19 pneumonia Pulmonary fibrosis Coronary artery disease with prior revascularization with unknown details Permanent atrial fibrillation with controlled heart rate on the current dose of amiodarone IV History of infrarenal abdominal aortic aneurysm repair Multiple comorbid conditions Plan Consider DC amiodarone in the light of history of pulmonary fibrosis was a p ressure has been more stable Consider starting the patient on AV danielle chrissie agents using metoprolol or Cardizem Continue supporting the blood pressure using norepinephrine Continue oral anticoagulation Follow-up with the patient Past Medical History Past Medical History: Atrial Fibrillation, COPD, CVA/TIA, Hyperlipidemia, Hypertension, Myocardial Infarction (ID), Osteoarthritis (OA), Pneumonia Additional Past Medical History / Comment(s): hx. aortic aneurysm-had surg., emphysema, TIA's x2 couple years ago-no residual effects, DDD, spinal stenosis, pinched nerve down right leg Last Myocardial Infarction Date:: 2013 possibly History of Any Multi-Drug Resistant Organisms: None Reported Past Surgical History: Heart Catheterization With Stent, Orthopedic Surgery, Prostate Surgery Additional Past Surgical History / Comment(s): AAA 6-8 yrs. ago, left foot surgery x3, right knee arthroscopy, 9 stents total, laser surg. for enlarged prostate Past Anesthesia/Blood Transfusion Reactions: No Reported Reaction Date of Last Stent Placement:: 2020 Past Psychological History: No Psychological Hx Reported Smoking Status: Former smoker Past Alcohol Use History: None Reported Past Drug Use History: None Reported - Past Family History Mother Family Medical History: No Reported History Medications and Allergies Home Medications Medication Instructions Recorded Confirmed Type Enalapril [Vasotec] 10 mg PO DAILY 08/07/19 06/30/23 History Roscoe-3 Fatty Acids/Fish Oil [Fish 1 cap PO BID 08/07/19 06/30/23 History Oil 1,000 mg Softgel] Rivaroxaban [Xarelto] 20 mg PO HS 08/07/19 06/30/23 History atenoloL [Tenormin] 25 mg PO DAILY 08/07/19 06/30/23 History Multivitamins, Thera [Multivitamin 1 tab PO DAILY #30 tablet 08/12/19 06/30/23 Rx (formulary)] Clopidogrel [Plavix] 75 mg PO DAILY 04/19/22 06/30/23 History Azithromycin [Zithromax] 500 mg PO DAILY 06/30/23 06/30/23 History Budesonide/Formoterol Fumarate 2 puff INHALATION RT-BID PRN 06/30/23 06/30/23 History [Symbicort 160-4.5 Mcg Inhaler] Rosuvastatin [Crestor] 20 mg PO HS 06/30/23 06/30/23 History Tiotropium 2.5 Mcg/Puff [Spiriva 2 puff INHALATION RT-DAILY 06/30/23 06/30/23 History Respimat 2.5 Mcg] Tolterodine ER [Detrol LA] 4 mg PO HS 06/30/23 06/30/23 History Topiramate [Topamax] 25 mg PO BID 06/30/23 06/30/23 History predniSONE See Taper PO DIRECTED 06/30/23 06/30/23 History traMADol HCL 50 mg PO TID 06/30/23 06/30/23 History Allergies Allergy/AdvReac Type Severity Reaction Status Date / Time indomethacin [From Indocin] AdvReac rectal Verified 06/30/23 16:16 bleeding Physical Exam Vitals: Vital Signs Temp Pulse Resp BP Pulse Ox 07/01/23 12:45 98 17 96/59 94 L 07/01/23 12:30 98 17 101/63 93 L 07/01/23 12:15 101 H 16 102/64 93 L 07/01/23 12:00 99.5 F 102 H 19 111/71 94 L 07/01/23 11:45 99 27 H 100/67 93 L 07/01/23 11:30 102 H 17 95/60 94 L 07/01/23 11:15 111 H 12 102/65 94 L 07/01/23 11:00 101 H 21 107/72 96 07/01/23 10:45 131 H 26 H 114/67 95 07/01/23 10:30 103 H 22 108/58 95 07/01/23 10:15 101 H 20 110/67 94 L 07/01/23 10:00 101 H 21 113/64 95 07/01/23 09:45 105 H 21 104/62 94 L 07/01/23 09:30 95 25 H 110/73 94 L 07/01/23 09:15 108 H 24 107/45 95 07/01/23 09:00 107 H 24 115/77 95 07/01/23 08:45 103 H 23 115/68 95 07/01/23 08:30 108 H 23 112/67 96 07/01/23 08:15 89 23 110/74 95 07/01/23 08:00 102 H 22 114/68 96 07/01/23 07:45 94 21 111/66 96 07/01/23 07:30 89 20 103/71 96 07/01/23 07:15 101 H 22 114/69 95 07/01/23 07:00 103 H 24 110/73 95 07/01/23 06:45 90 17 107/67 95 07/01/23 06:30 102 H 21 107/64 94 L 07/01/23 06:15 87 23 98/67 95 07/01/23 06:00 106 H 22 103/83 96 07/01/23 05:45 84 14 113/71 95 07/01/23 05:30 101 H 20 107/64 95 07/01/23 05:15 111 H 20 106/90 94 L 07/01/23 05:00 105 H 26 H 98/65 96 07/01/23 04:30 101 H 24 101/77 95 07/01/23 04:15 95 17 116/68 94 L 07/01/23 04:00 98.9 F 98 26 H 110/73 94 L 07/01/23 03:45 105 H 23 107/71 94 L 07/01/23 03:30 106 H 23 99/65 94 L 07/01/23 03:15 103 H 19 105/63 93 L 07/01/23 03:00 96 25 H 106/76 94 L 07/01/23 02:45 108 H 25 H 108/73 93 L 07/01/23 02:30 112 H 23 101/62 93 L 07/01/23 02:15 114 H 23 98/59 94 L 07/01/23 02:00 116 H 23 108/66 93 L 07/01/23 01:45 107 H 23 111/61 92 L 07/01/23 01:30 118 H 23 111/67 93 L 07/01/23 01:15 118 H 22 122/60 93 L 07/01/23 01:00 116 H 22 114/67 93 L 07/01/23 00:45 107 H 23 125/66 93 L 07/01/23 00:30 86 18 117/68 93 L 07/01/23 00:15 80 23 109/61 93 L 07/01/23 00:00 97.9 F 77 20 112/63 93 L 06/30/23 23:45 76 20 109/65 94 L 06/30/23 23:30 80 22 115/56 94 L 06/30/23 23:15 79 21 110/58 94 L 06/30/23 23:00 81 23 117/65 94 L 06/30/23 22:45 82 25 H 119/69 93 L 06/30/23 22:30 89 27 H 115/61 93 L 06/30/23 22:19 87 16 115/61 93 L 06/30/23 22:15 87 17 121/63 94 L 06/30/23 22:00 84 25 H 125/71 93 L 06/30/23 21:45 80 23 124/71 93 L 06/30/23 21:30 30 H 125/66 93 L 06/30/23 21:15 82 26 H 125/64 93 L 06/30/23 21:00 100.8 F H 83 28 H 104/63 93 L 06/30/23 20:45 82 26 H 113/64 93 L 06/30/23 20:30 78 19 116/59 93 L 06/30/23 20:15 80 21 99/62 94 L 06/30/23 20:00 82 20 105/57 93 L 06/30/23 19:45 80 21 112/63 93 L 06/30/23 19:30 82 24 105/59 94 L 06/30/23 19:15 86 21 95/58 95 06/30/23 19:00 84 22 107/54 94 L 06/30/23 18:45 94 25 H 132/57 94 L 06/30/23 18:30 80 21 80/24 95 06/30/23 18:15 32 H 110/55 95 06/30/23 18:00 81 19 97/52 95 06/30/23 17:45 87 29 H 155/118 95 06/30/23 17:30 97.6 F 90 23 141/87 95 06/30/23 17:00 91 06/30/23 16:54 87/54 06/30/23 16:45 90 06/30/23 16:38 93/54 06/30/23 16:30 81 10 L 06/30/23 16:15 81 28 H 76/35 06/30/23 16:06 98.0 F 84 24 89/41 96 06/30/23 16:00 86 19 78/56 06/30/23 15:45 89 28 H 78/55 06/30/23 15:30 87 26 H 72/53 06/30/23 15:15 85 24 80/41 Intake and Output 07/01/23 07/01/23 07/01/23 06:59 14:59 22:59 Intake Total 1174.221 1921.945 Output Total 950 700 Balance 849.239 600.945 Intake: IV 1670 650 Sodium Chloride 0.9% 1, 1170 650 000 ml @ 130 mls/hr IV . Q7H42M [facility] Rx#:[id number] Vancomycin 1,750 mg In 500 Sodium Chloride 0.9% 500 ml 500 ml @ 167 mls/hr IVPB ONCE ONE Rx#: [id number] Intake, IV Titration 129.239 650.945 Amount Norepinephrine 4 mg In 129.239 50.945 Sodium Chloride 0.9% 250 ml @ 0.03 MCG/KG/MIN 12. 754 mls/hr IV .[id number] ONE Rx#:[id number] Piperacillin-Tazobactam 3 600 .375 gm In Sodium Chloride 0.9% 100 ml @ 25 mls/hr IVPB Q8HR [facility] Rx# :[id number] Output: Urine 950 700 Other: Voiding Method Urinal Urinal # Voids 0 Weight 110.3 kg 120.1 kg Results 07/01/23 05:31 07/01/23 05:31 CBC 07/01/23 Range/Units 05:31 WBC 27.3 H (3.8-10.6) k/uL RBC 4.69 (4.30-5.90) m/uL Hgb 13.7 (13.0-17.5) gm/dL Hct 41.2 (39.0-53.0) % Plt Count 222 (150-450) k/uL Comprehensive Metabolic Panel 07/01/23 Range/Units 05:31 Sodium 136 L (137-145) mmol/L Potassium 4.1 (3.5-5.1) mmol/L Chloride 113 H (98-107) mmol/L Carbon Dioxide 15 L (22-30) mmol/L BUN 26 H (9-20) mg/dL Creatinine 0.88 (0.66-1.25) mg/dL Glucose 178 H (74-99) mg/dL Calcium 7.8 L (8.4-10.2) mg/dL Current Medications Generic Name Dose Route Start Last Admin Trade Name Freq PRN Reason Stop Dose Admin Acetaminophen 650 mg 06/30/23 15:04 06/30/23 22:25 Acetaminophen Tab 325 Mg Tab PO 650 mg Q4HR PRN Administration Fever and/ or Pain Albuterol Sulfate 2 puff 06/30/23 21:00 Albuterol Hfa Inhaler INHALATION RT-Q2H PRN Shortness Of Breath Or Wheezing Ascorbic Acid 500 mg 07/01/23 10:45 07/01/23 11:59 Ascorbic Acid 500 Mg Tab PO 500 mg DAILY MIN Administration Cholecalciferol 125 mcg 07/01/23 10:45 07/01/23 11:58 Cholecalciferol 125 Mcg (5000 Iu) Tablet PO 125 mcg DAILY MIN Administration Dexamethasone Sodium Phosphate 6 mg 06/30/23 15:30 07/01/23 08:39 Dexamethasone Sod Phosphate 10 Mg/Ml 1 Ml Vial IVP 6 mg DAILY MIN Administration Hydromorphone HCl 1 mg 07/01/23 10:38 07/01/23 11:00 Hydromorphone 1 Mg/Ml 1 Ml Syringe IVP 1 mg Q2HR PRN Administration Pain Piperacillin Sod/Tazobactam 100 mls @ 25 mls/hr 06/30/23 16:00 07/01/23 08:40 Sod 3.375 gm/ Sodium Chloride IVPB 25 mls/hr Q8HR MIN Administration Protocol Sodium Chloride 1,000 mls @ 130 mls/hr 06/30/23 15:00 07/01/23 02:04 Saline 0.9% IV 130 mls/hr .Q7H42M MIN Administration Amiodarone HCl 450 mg/ 250 mls @ 16.667 mls/hr 07/01/23 07:30 07/01/23 07:00 Dextrose/Water IV 07/02/23 01:29 0.5 mg/min .Q15H MIN 16.667 mls/hr Administration Protocol 0.5 MG/MIN Vancomycin HCl 1,750 mg/ 500 mls @ 167 mls/hr 07/01/23 17:00 Sodium Chloride IVPB Q12H MIN Miscellaneous Information 1 each 06/30/23 15:04 Pneumonia Protocol Utilized 1 Each Misc PO ONCE PRN Per Protocol Naloxone HCl 0.2 mg 06/30/23 14:46 Naloxone 0.4 Mg/Ml 1 Ml Vial IV Q2M PRN Opioid Reversal Rivaroxaban 20 mg 06/30/23 21:00 06/30/23 21:55 Rivaroxaban 20 Mg Tab PO 20 mg HS MIN Administration Protocol Zinc Sulfate 220 mg 07/01/23 10:45 07/01/23 11:59 Zinc Sulfate 220 Mg Cap PO 220 mg DAILY MIN Administration Intake and Output 07/01/23 07/01/23 07/01/23 06:59 14:59 22:59 Intake Total 7261.184 1838.945 Output Total 950 700 Balance 849.239 600.945 Intake: IV 1670 650 Sodium Chloride 0.9% 1, 1170 650 000 ml @ 130 mls/hr IV . Q7H42M [facility] Rx#:[id number] Vancomycin 1,750 mg In 500 Sodium Chloride 0.9% 500 ml 500 ml @ 167 mls/hr IVPB ONCE ONE Rx#: [id number] Intake, IV Titration 129.239 650.945 Amount Norepinephrine 4 mg In 129.239 50.945 Sodium Chloride 0.9% 250 ml @ 0.03 MCG/KG/MIN 12. 754 mls/hr IV .[id number] [facility] Rx#:[id number] Piperacillin-Tazobactam 3 600 .375 gm In Sodium Chloride 0.9% 100 ml @ 25 mls/hr IVPB Q8HR [facility] Rx# :[id number] Output: Urine 950 700 Other: Voiding Method Urinal Urinal # Voids 0 Weight 110.3 kg 120.1 kg Patient Weight 07/02/23 06:59 Weight 120.1 kg 07/01/23 05:31 07/01/23 05:31
[2023-07-01] MEDS: VANCOMYCIN 1,750 MG in SODIUM CHLORIDE 0.9% 500 ML 500 ML IVPB SCH (17:45)
[2023-07-01] MEDS: RIVAROXABAN 20 MG TAB PO SCH (20:24)
[2023-07-02] MEDS: SODIUM CHLORIDE 0.9% 1,000 ML IV SCH ×2 (00:04→06:46)
[2023-07-02] MEDS: PIPERACILLIN-TAZOBACTAM 3.375 GM in SODIUM CHLORIDE 0.9% 100 ML IVPB SCH ×3 (00:04→15:47)
[2023-07-02] MEDS: HYDROmorphone 1 MG/ML 1 ML SYRINGE IVP PRN ×4 (00:07→17:31)
[2023-07-02 04:12] LABS: Basophils % (A) 0 %; Eosinophils % (A) 0 %; HCT 37.9 % (39.0-53.0); HGB 12.4 gm/dL (13.0-17.5); Lymphocytes # (A) 0.6 k/uL (1.0-4.8); Lymphocytes % (A) 4 %; MCH 28.5 pg (25.0-35.0); MCHC 32.8 g/dL (31.0-37.0); Mean Platelet Volume 7.5; Monocytes # (A) 0.7 k/uL (0-1.0); Monocytes % (A) 4 %; Neutrophils # (A) 15.9 k/uL (1.3-7.7); Neutrophils % (A) 91 %; Platelet Count 170 k/uL (150-450); RBC 4.36 m/uL (4.30-5.90); RDW 14.7 % (11.5-15.5); WBC 17.4 k/uL (3.8-10.6)
[2023-07-02 04:24] LABS: African American GFR (CKD) >90 (>60 ml/min/1.73 sqM); Anion Gap 8 mmol/L; Blood Urea Nitrogen 23 mg/dL (9-20); Calcium 7.9 mg/dL (8.4-10.2); Carbon Dioxide 18 mmol/L (22-30); Chloride 110 mmol/L (98-107); Glucose 135 mg/dL (74-99); Non-African American GFR(CKD) >90 (>60 ml/min/1.73 sqM); Potassium 4.1 mmol/L (3.5-5.1); Sodium 136 mmol/L (137-145)
[2023-07-02] MEDS: VANCOMYCIN 1,750 MG in SODIUM CHLORIDE 0.9% 500 ML 500 ML IVPB SCH (05:00)
--- NOTE | 2023-07-02 07:16 | P.CONS ---
History of Present Illness - Reason for Consult Consult date: 07/01/23 - History of Present Illness Patient is a 67-year-old male with a past medical history significant for COPD CVA TIA atrial fibrillation hypertension hyperlipidemia MD patient presented to hospital yesterday morning for evaluation of increasing shortness of and chest pain patient's symptoms started suddenly has been mostly to the left lower chest area describing it to be sharp intensity is moderate to severe without any radiation he did have associated cough no vomiting up any significant sputum patient denies having any nausea no vomiting no choking" no abdominal pain or any diarrhea patient presentation to the hospital was afebrile however he did spike a fever of 100.8 degrees for height last night patient was tachycardic hypoxic requiring supplemental oxygen patient did have white count of 33.8 with a left shift creatinine has been normal lactic acid is elevated procalcitonin is 3.68 tested positive for COVID influenza RSV was negative blood cultures obtained which are currently pending patient did have a chest x-ray multifocal pneumonia CT angiogram of the chest tiny subsegmental pulm embolism in the left lower lobe also evidence of consolidative opacity in the right lung base patient has been admitted to the ICU has been started on dexamethasone and Zosyn infectious disease was consulted for further management of antibiotic therapy Past Medical History Past Medical History: Atrial Fibrillation, COPD, CVA/TIA, Hyperlipidemia, Hypertension, Myocardial Infarction (MD), Osteoarthritis (OA), Pneumonia Additional Past Medical History / Comment(s): hx. aortic aneurysm-had surg., emphysema, TIA's x2 couple years ago-no residual effects, DDD, spinal stenosis, pinched nerve down right leg Last Myocardial Infarction Date:: 2013 possibly History of Any Multi-Drug Resistant Organisms: None Reported Past Surgical History: Heart Catheterization With Stent, Orthopedic Surgery, Prostate Surgery Additional Past Surgical History / Comment(s): AAA 6-8 yrs. ago, left foot surgery x3, right knee arthroscopy, 9 stents total, laser surg. for enlarged prostate Past Anesthesia/Blood Transfusion Reactions: No Reported Reaction Date of Last Stent Placement:: 2020 Past Psychological History: No Psychological Hx Reported Smoking Status: Former smoker Past Alcohol Use History: None Reported Past Drug Use History: None Reported - Past Family History Mother Family Medical History: No Reported History Medications and Allergies Home Medications Medication Instructions Recorded Confirmed Type Enalapril [Vasotec] 10 mg PO DAILY 08/07/19 06/30/23 History [place]-3 Fatty Acids/Fish Oil [Fish 1 cap PO BID 08/07/19 06/30/23 History Oil 1,000 mg Softgel] Rivaroxaban [Xarelto] 20 mg PO HS 08/07/19 06/30/23 History atenoloL [Tenormin] 25 mg PO DAILY 08/07/19 06/30/23 History Multivitamins, Thera [Multivitamin 1 tab PO DAILY #30 tablet 08/12/19 06/30/23 Rx (formulary)] Clopidogrel [Plavix] 75 mg PO DAILY 04/19/22 06/30/23 History Azithromycin [Zithromax] 500 mg PO DAILY 06/30/23 06/30/23 History Budesonide/Formoterol Fumarate 2 puff INHALATION RT-BID PRN 06/30/23 06/30/23 History [Symbicort 160-4.5 Mcg Inhaler] Rosuvastatin [Crestor] 20 mg PO HS 06/30/23 06/30/23 History Tiotropium 2.5 Mcg/Puff [Spiriva 2 puff INHALATION RT-DAILY 06/30/23 06/30/23 History Respimat 2.5 Mcg] Tolterodine ER [Detrol LA] 4 mg PO HS 06/30/23 06/30/23 History Topiramate [Topamax] 25 mg PO BID 06/30/23 06/30/23 History predniSONE See Taper PO DIRECTED 06/30/23 06/30/23 History traMADol HCL 50 mg PO TID 06/30/23 06/30/23 History Allergies Allergy/AdvReac Type Severity Reaction Status Date / Time indomethacin [From Indocin] AdvReac rectal Verified 06/30/23 16:16 bleeding Physical Exam Vitals: Vital Signs Temp Pulse Resp BP Pulse Ox 07/01/23 07:00 103 H 24 110/73 95 07/01/23 06:45 90 17 107/67 95 07/01/23 06:30 102 H 21 107/64 94 L 07/01/23 06:15 87 23 98/67 95 07/01/23 06:00 106 H 22 103/83 96 07/01/23 05:45 84 14 113/71 95 07/01/23 05:30 101 H 20 107/64 95 07/01/23 05:15 111 H 20 106/90 94 L 07/01/23 05:00 105 H 26 H 98/65 96 07/01/23 04:30 101 H 24 101/77 95 07/01/23 04:15 95 17 116/68 94 L 07/01/23 04:00 98.9 F 98 26 H 110/73 94 L 07/01/23 03:45 105 H 23 107/71 94 L 07/01/23 03:30 106 H 23 99/65 94 L 07/01/23 03:15 103 H 19 105/63 93 L 07/01/23 03:00 96 25 H 106/76 94 L 07/01/23 02:45 108 H 25 H 108/73 93 L 07/01/23 02:30 112 H 23 101/62 93 L 07/01/23 02:15 114 H 23 98/59 94 L 07/01/23 02:00 116 H 23 108/66 93 L 07/01/23 01:45 107 H 23 111/61 92 L 07/01/23 01:30 118 H 23 111/67 93 L 07/01/23 01:15 118 H 22 122/60 93 L 07/01/23 01:00 116 H 22 114/67 93 L 07/01/23 00:45 107 H 23 125/66 93 L 07/01/23 00:30 86 18 117/68 93 L 07/01/23 00:15 80 23 109/61 93 L 07/01/23 00:00 97.9 F 77 20 112/63 93 L 06/30/23 23:45 76 20 109/65 94 L 06/30/23 23:30 80 22 115/56 94 L 06/30/23 23:15 79 21 110/58 94 L 06/30/23 23:00 81 23 117/65 94 L 06/30/23 22:45 82 25 H 119/69 93 L 06/30/23 22:30 89 27 H 115/61 93 L 06/30/23 22:19 87 16 115/61 93 L 06/30/23 22:15 87 17 121/63 94 L 06/30/23 22:00 84 25 H 125/71 93 L 06/30/23 21:45 80 23 124/71 93 L 06/30/23 21:30 30 H 125/66 93 L 06/30/23 21:15 82 26 H 125/64 93 L 06/30/23 21:00 100.8 F H 83 28 H 104/63 93 L 06/30/23 20:45 82 26 H 113/64 93 L 06/30/23 20:30 78 19 116/59 93 L 06/30/23 20:15 80 21 99/62 94 L 06/30/23 20:00 82 20 105/57 93 L 06/30/23 19:45 80 21 112/63 93 L 06/30/23 19:30 82 24 105/59 94 L 06/30/23 19:15 86 21 95/58 95 06/30/23 19:00 84 22 107/54 94 L 06/30/23 18:45 94 25 H 132/57 94 L 06/30/23 18:30 80 21 80/24 95 06/30/23 18:15 32 H 110/55 95 06/30/23 18:00 81 19 97/52 95 06/30/23 17:45 87 29 H 155/118 95 06/30/23 17:30 97.6 F 90 23 141/87 95 06/30/23 17:00 91 06/30/23 16:54 87/54 06/30/23 16:45 90 06/30/23 16:38 93/54 06/30/23 16:30 81 10 L 06/30/23 16:15 81 28 H 76/35 06/30/23 16:06 98.0 F 84 24 89/41 96 06/30/23 16:00 86 19 78/56 06/30/23 15:45 89 28 H 78/55 06/30/23 15:30 87 26 H 72/53 06/30/23 15:15 85 24 80/41 06/30/23 15:00 89 30 H 83/43 06/30/23 14:45 86 30 H 81/64 06/30/23 14:30 92 39 H 72/46 06/30/23 14:18 76 18 72/46 97 06/30/23 14:15 87 06/30/23 14:00 69/50 06/30/23 13:45 84 33 H 76/43 06/30/23 13:30 78 47 H 95/52 06/30/23 13:26 74 26 H 95/52 97 06/30/23 13:15 76 33 H 63/40 06/30/23 13:08 76 26 H 78/39 96 06/30/23 13:00 90 39 H 76/58 06/30/23 12:45 80 32 H 68/52 06/30/23 12:30 71 33 H 150/104 06/30/23 12:15 73 21 130/37 06/30/23 12:00 78 20 129/34 06/30/23 11:52 30 H 06/30/23 11:45 85 40 H 06/30/23 11:30 167/110 06/30/23 11:15 74 7 L 76/52 06/30/23 11:00 78 22 57/30 06/30/23 10:45 66 25 H 76/45 06/30/23 10:30 70 28 H 06/30/23 10:16 72 15 06/30/23 10:04 98.3 F 72 34 H 155/88 93 L Intake and Output 06/30/23 07/01/23 07/01/23 22:59 06:59 14:59 Intake Total 2929.474 0208.239 Output Total 300 950 Balance 1185.060 849.239 Intake: IV 650 1670 Sodium Chloride 0.9% 1, 650 1170 000 ml @ 130 mls/hr IV . Q7H42M [facility] Rx#:[id number] Vancomycin 1,750 mg In 500 Sodium Chloride 0.9% 500 ml 500 ml @ 167 mls/hr IVPB ONCE ONE Rx#: [id number] Intake, IV Titration 835.060 129.239 Amount Norepinephrine 4 mg In 335.060 129.239 Sodium Chloride 0.9% 250 ml @ 0.03 MCG/KG/MIN 12. 754 mls/hr IV .[id number] ONE Rx#:[id number] Vancomycin 1,750 mg In 500 Sodium Chloride 0.9% 500 ml 500 ml @ 167 mls/hr IVPB Q16H [facility] Rx#: [id number] Output: Urine 300 950 Other: Voiding Method Urinal Urinal # Voids 0 Weight 111.584 kg 110.3 kg 120.1 kg Results CBC & Chem 7: 07/02/23 03:17 07/02/23 03:17 Labs: Abnormal Lab Results - Last 24 Hours (Table) 06/30/23 06/30/23 06/30/23 Range/Units 11:50 11:50 11:50 WBC 33.8 H (3.8-10.6) k/uL Neutrophils # (Manual) 27.70 H (1.3-7.7) k/uL Monocytes # (Manual) 3.04 H (0-1.0) k/uL Metamyelocytes # (Man) 0.34 H (0) k/uL PT 12.7 H (10.0-12.5) sec INR 1.2 H (<1.2) Sodium (137-145) mmol/L Chloride (98-107) mmol/L Carbon Dioxide (22-30) mmol/L BUN (9-20) mg/dL Creatinine (0.66-1.25) mg/dL Glucose (74-99) mg/dL POC Glucose (mg/dL) (70-110) mg/dL Plasma Lactic Acid Po (0.7-2.0) mmol/L Calcium (8.4-10.2) mg/dL C-Reactive Protein (<1.0) mg/dL Procalcitonin (0.02-0.09) ng/mL SARS-CoV-2 (PCR) Detected A (Not Detectd) 06/30/23 06/30/23 06/30/23 Range/Units 11:50 11:50 13:18 WBC (3.8-10.6) k/uL Neutrophils # (Manual) (1.3-7.7) k/uL Monocytes # (Manual) (0-1.0) k/uL Metamyelocytes # (Man) (0) k/uL PT (10.0-12.5) sec INR (<1.2) Sodium 136 L (137-145) mmol/L Chloride 109 H (98-107) mmol/L Carbon Dioxide 13 L (22-30) mmol/L BUN 33 H (9-20) mg/dL Creatinine 1.41 H (0.66-1.25) mg/dL Glucose 117 H (74-99) mg/dL POC Glucose (mg/dL) (70-110) mg/dL Plasma Lactic Acid Po 3.9 H* (0.7-2.0) mmol/L Calcium (8.4-10.2) mg/dL C-Reactive Protein (<1.0) mg/dL Procalcitonin 3.68 H (0.02-0.09) ng/mL SARS-CoV-2 (PCR) (Not Detectd) 06/30/23 06/30/23 06/30/23 Range/Units 17:22 17:41 21:09 WBC (3.8-10.6) k/uL Neutrophils # (Manual) (1.3-7.7) k/uL Monocytes # (Manual) (0-1.0) k/uL Metamyelocytes # (Man) (0) k/uL PT (10.0-12.5) sec INR (<1.2) Sodium (137-145) mmol/L Chloride (98-107) mmol/L Carbon Dioxide (22-30) mmol/L BUN (9-20) mg/dL Creatinine (0.66-1.25) mg/dL Glucose (74-99) mg/dL POC Glucose (mg/dL) 141 H (70-110) mg/dL Plasma Lactic Acid Po 3.4 H* 2.2 H* (0.7-2.0) mmol/L Calcium (8.4-10.2) mg/dL C-Reactive Protein (<1.0) mg/dL Procalcitonin (0.02-0.09) ng/mL SARS-CoV-2 (PCR) (Not Detectd) 07/01/23 07/01/23 07/01/23 Range/Units 00:17 05:31 05:31 WBC 27.3 H (3.8-10.6) k/uL Neutrophils # (Manual) (1.3-7.7) k/uL Monocytes # (Manual) (0-1.0) k/uL Metamyelocytes # (Man) (0) k/uL PT (10.0-12.5) sec INR (<1.2) Sodium 136 L (137-145) mmol/L Chloride 113 H (98-107) mmol/L Carbon Dioxide 15 L (22-30) mmol/L BUN 26 H (9-20) mg/dL Creatinine (0.66-1.25) mg/dL Glucose 178 H (74-99) mg/dL POC Glucose (mg/dL) (70-110) mg/dL Plasma Lactic Acid Po 3.1 H* (0.7-2.0) mmol/L Calcium 7.8 L (8.4-10.2) mg/dL C-Reactive Protein 32.4 H (<1.0) mg/dL Procalcitonin (0.02-0.09) ng/mL SARS-CoV-2 (PCR) (Not Detectd) Assessment and Plan Plan: 1patient was in the hospital with sepsis in this patient who did have a fever elevated white count tachycardia source is likely right-sided pneumonia patient did have elevated procalcitonin and likely component of bacterial however the patient to have a features of acute COVID-19 infection with a complication of PE as documented on CT angiogram of the chest 2-we will try to obtain a sputum for Gram stain culture 3-continue with vancomycin and Zosyn however watch his kidney function closely if the blood culture negative for any gram-positive vancomycin will be discontinued 4-droplet isolation We will follow on clinical condition and cultures to further adjust medication if needed Thank you for this consultation we will follow the patient along with you Dictation was produced using [employer] dictation software. please excuse any grammatical, word or spelling errors. Time with Patient: Greater than 30
--- NOTE | 2023-07-02 07:21 | XR ---
EXAMINATION TYPE: XR chest 1V portable DATE OF EXAM: 07/02/2023 5:35 AM CLINICAL INDICATION:Male, 67 years old with history of left upper lobe pneumonia; COMPARISON: Chest radiograph from one day prior. TECHNIQUE: XR chest 1V portable Frontal view of the chest. FINDINGS: Lungs/Pleura: Similar left lung airspace opacities. No evidence of pneumothorax or pleural effusion. Pulmonary vascularity: Unremarkable. Heart/mediastinum: Cardiomediastinal silhouette is partially obscured due to overlying and adjacent o pacities. Musculoskeletal: No acute osseous pathology. Other findings: None IMPRESSION: Similar left lung airspace opacities.
[2023-07-02] MEDS: ASCORBIC ACID 500 MG TAB PO SCH (08:18)
[2023-07-02] MEDS: ZINC SULFATE 220 MG CAP PO SCH (08:18)
[2023-07-02] MEDS: DEXAMETHASONE SOD PHOSPHATE 10 MG/ML 1 ML VIAL IVP SCH (08:19)
[2023-07-02] MEDS: CHOLECALCIFEROL 125 MCG (5000 IU) TABLET PO SCH (08:19)
--- NOTE | 2023-07-02 11:25 | P.PN ---
Subjective Progress Note Date: 07/02/23 This is a 67-year-old white male, known history of pulmonary fibrosis, patient normally sees , patient is not on any specific treatment for his pulmonary fibrosis, he was recently seen in the office, and he was complaining of cough, shortness of breath, patient received Depo-Medrol injection, and he was placed on antibiotics. This was only a few days ago. Over the last few days, the patient seems to be getting worse, now he is developing left-sided chest pain which started last night. He is also developing shortness of breath, some cough, but no fever, no chills, no hemoptysis. was seen in [facility] ER, and a CT of the chest showed significant infiltrate in the left lower lobe consistent with left lower lobe pneumonia it also showed and raised the possibility of a small subsegmental pulmonary embolus. Patient is maintained on Xarelto. He does have history of chronic atrial fibrillation. And he is compliant with her Xarelto. I reviewed the CT of the chest myself, I did not feel that the diagnosis of pulmonary embolism is conclusive. Specially what it is a subsegmental pulmonary artery finding. Nonetheless the patient is on anticoagulation therapy, however I'm quite concerned about his significant pneumonic process involving the left lower lobe. Patient was also noted to have leukocytosis with WBC count as high as 33.6 rest of the labs were basically unremarkable, lactic level was 3.9. And in addition to all of this the patient had positive COVID-19 PCR. Patient was relatively hypotensive in the ER, received fluid boluses and he continued to have low blood pressure and the patient was placed on norepinephrine at 0.03 mcg/kg/m, I saw the patient in the ER, and I recommended admitting the patient to the ICU. I believe the patient is septic and he will be treated as per protocol for sepsis and septic shock. Patient did receive Decadron, he is also now on Zosyn and he is maintained on Xarelto. Vancomycin was also given in addition to this, patient is on bronchodilators in the form of DuoNeb Patient was reevaluated today on 07/01/23, remains in the ICU,, patient went on to develop last night atrial fibrillation with RVR, patient is known to have history of atrial fibrillation, and I recommended amiodarone bolus and amiodarone drip. And recommended cardiac consultation to be done this morning. Patient remains on Decadron, Xarelto, vancomycin, and Zosyn. Patient is on few liters nasal cannula, he is hemodynamically stable, blood pressure is 96/59 with a mean of 72 O2 saturations 94%. Continues to have intermittent coughing, and some significant left sided pleuritic chest pain, requiring Dilaudid for pain management. CT angiogram on admission clearly showed evidence of left sided infiltrate, and subsegmental pulmonary embolus in the left lower lobe/tiny labs today showed improvement in his leukocytosis with WBC count down to 27.3 hemoglobin 13.7 basic metabolic profile is normal renal profile is normal. Patient is empirically on Zosyn and vancomycin, cultures are pending. The patient is seen today 07/02/2023 in follow-up in the intensive care unit. He is currently sitting up in bed. Awake and alert in no acute distress. He is maintaining O2 saturations in the 90s on 2 L/m per nasal cannula. Chest x-ray reveals similar left lung airspace opacities. No pneumothorax or pleural effusion. Blood culture revealing no growth. White count 17.4. Hemoglobin 12.4. Sodium 136. Potassium 4.1. Bicarb 18. BUN 23. Creatinine 0.74. Glucose 135. Pro-calcitonin was 3.68. COVID-19 positive. He is continued on Zosyn. Anticoagulated with Xarelto. Continued on Decadron, bronchodilators, vitamin supplements. Objective - Vital Signs Vital signs: Vital Signs Temp 98.4 F 07/02/23 04:00 Pulse 87 07/02/23 07:00 Resp 13 07/02/23 07:00 BP 108/81 07/02/23 07:00 Pulse Ox 93 L 07/02/23 07:00 FiO2 Intake & Output 07/01/23 07/02/23 07/02/23 18:59 06:59 18:59 Intake Total 2980.945 2785.005 260.5 Output Total 1350 1010 250 Balance 4834.714 3970.005 10.5 Weight 120.1 kg 122 kg Intake: IV 1430 2160 260 Piperacillin-Tazobactam 3 100 .375 gm In Sodium Chloride 0.9% 100 ml @ 25 mls/hr IVPB Q8HR [facility] Rx# :[id number] Sodium Chloride 0.9% 1, 1430 1560 260 000 ml @ 130 mls/hr IV . Q7H42M [facility] Rx#:[id number] Vancomycin 1,750 mg In 500 Sodium Chloride 0.9% 500 ml 500 ml @ 167 mls/hr IVPB Q12H [facility] Rx#: [id number] Intake, IV Titration 1550.945 245.005 0.5 Amount Amiodarone 450 mg In 245.005 Dextrose 5% in Water 250 ml @ 0.5 MG/MIN 16.667 mls/hr IV .Q15H [facility] Rx#: [id number] Norepinephrine 4 mg In 50.945 Sodium Chloride 0.9% 250 ml @ 0.03 MCG/KG/MIN 12. 754 mls/hr IV .[id number] [facility] Rx#:[id number] Piperacillin-Tazobactam 3 1500 .375 gm In Sodium Chloride 0.9% 100 ml @ 25 mls/hr IVPB Q8HR [facility] Rx# :[id number] Vancomycin 1,750 mg In 0.5 Sodium Chloride 0.9% 500 ml 500 ml @ 167 mls/hr IVPB Q12H [facility] Rx#: [id number] Oral 380 Output: Urine 1350 1010 250 Other: Voiding Method Urinal Urinal # Voids 1 - Exam GENERAL EXAM: Alert, very pleasant 67-year-old male patient, on 2 L nasal cannula, fairly comfortable in no apparent distress. HEAD: Normocephalic. EYES: Normal reaction of pupils, equal size. NOSE: Clear with pink turbinates. THROAT: No erythema or exudates. NECK: No masses, no JVD. CHEST: No chest wall deformity. LUNGS: Equal air entry with crackles in the left lung base. CVS: S1 and S2 normal with no audible murmur, irregular rhythm. ABDOMEN: No hepatosplenomegaly, normal bowel sounds, no guarding or rigidity. SPINE: No scoliosis or deformity SKIN: No rashes CENTRAL NERVOUS SYSTEM: No focal deficits, tone is normal in all 4 extremities. EXTREMITIES: There is no peripheral edema. No clubbing, no cyanosis. Peripheral pulses are intact. - Labs CBC & Chem 7: 07/02/23 03:17 07/02/23 03:17 Labs: Abnormal Lab Results - Last 24 Hours (Table) 07/01/23 07/01/23 07/01/23 Range/Units 11:00 14:20 17:23 WBC (3.8-10.6) k/uL Hgb (13.0-17.5) gm/dL Hct (39.0-53.0) % Neutrophils # (1.3-7.7) k/uL Lymphocytes # (1.0-4.8) k/uL Sodium (137-145) mmol/L Chloride (98-107) mmol/L Carbon Dioxide (22-30) mmol/L BUN (9-20) mg/dL Glucose (74-99) mg/dL Plasma Lactic Acid Po 2.3 H* 2.5 H* 2.5 H* (0.7-2.0) mmol/L Calcium (8.4-10.2) mg/dL 07/02/23 07/02/23 Range/Units 03:17 03:17 WBC 17.4 H (3.8-10.6) k/uL Hgb 12.4 L (13.0-17.5) gm/dL Hct 37.9 L (39.0-53.0) % Neutrophils # 15.9 H (1.3-7.7) k/uL Lymphocytes # 0.6 L (1.0-4.8) k/uL Sodium 136 L (137-145) mmol/L Chloride 110 H (98-107) mmol/L Carbon Dioxide 18 L (22-30) mmol/L BUN 23 H (9-20) mg/dL Glucose 135 H (74-99) mg/dL Plasma Lactic Acid Po (0.7-2.0) mmol/L Calcium 7.9 L (8.4-10.2) mg/dL Microbiology - Last 24 Hours (Table) 06/30/23 22:57 Nasal Screen MRSA/MSSA - Final Nasal Swab 06/30/23 18:08 Blood Culture - Preliminary Blood 06/30/23 17:41 Blood Culture - Preliminary Blood Assessment and Plan Assessment: Acute left lower lobe pneumonia, most likely bacterial in nature although COVID- 19 pneumonia is not entirely ruled out. Procalcitonin 3.68. Currently on Zosyn Acute COVID-19 infection Sepsis and septic shock secondary to pneumonia, patient required briefly a course of norepinephrine but he is presently off norepinephrine and he received 2 L fluid boluses while in the ER. History of underlying pulmonary fibrosis/IPF History of lung nodule being monitored on outpatient basis by Dr. Chaudhry and the patient had a recent PET scan in [place] History of chronic atrial fibrillation, continued on Xarelto Coronary arteriosclerosis and previous stent placement History of aortic aneurysm and previous stent placement/abdominal aortic aneurysm Degenerative joint disease Dyslipidemia History of underlying COPD Chest pain, pleuritic and musculoskeletal in nature Possible pulmonary embolism clinically I feel this is less likely Acute kidney injury secondary to sepsis and hypotension and acute tubular necrosis Plan: The patient was seen and evaluated Chest x-ray, labs and medications reviewed Continue Decadron, vitamin supplements Continue Xarelto Continue antibiotics in the form of Zosyn Decrease IV fluids to KVO Titrate the FiO2 as tolerated Increase his activity as tolerated We'll continue to follow I have personally seen and examined the patient, performed the documentation and the assessment and plan as written. Number of minutes spent on the visit: 10.
--- NOTE | 2023-07-02 12:50 | P.PN ---
Subjective Progress Note Date: 07/02/23 patient is 67-year-old gentleman past medical history significant for hyp ertension, history of chronic atrial fibrillation who presented to the ER because of shortness of breath and left-sided chest pain that started last night. Patient stated he was all right last night when he started suddenly noticing sharp left-sided chest pain, severe intensity, nonradiating, aggravated by taking deep breaths. Patient also complaining of shortness of breath at that time. Denied any fever or chills at the home. Denied any complaint of nausea, vomiting or abdominal pain. Patient stated that he was having cough a week back and he saw his healthcare representative who ordered Medrol Dosepak and oral antibiotics. Cough continued to persist with these medications. Because of sudden onset of chest pain and shortness of breath, patient was brought to the ER Initial lab work done in the ER showed WBC 33.8, hemoglobin 15.5,, sodium 136, potassium 4.3, BUN 33, creatinine 1.41, glucose 117, lactate, 3.9 EKG done in the ER heart rate 72, no ST segment elevation, no T-wave inversion seen. Chest x-ray done in the ER showed multifocal pneumonia CTA chest done showed increasing airspace/ consolidative infiltrate and left upper lobe and right lung base consistent with a worsening infectious process Patient was hypotensive in the ER, was started on Levophed, transferred to ICU 07/01. Patient seen and examined. States breathing has improved. Patient has been weaned off Levophed drip. Currently on 2 L of oxygen. Gets short of breath on exertion. Vital signs otherwise stable 07/02 Patient seen and examined. States breathing is improving, currently on 2 L of oxygen. Denies any chest pain. States he feels much better compared to yesterday. REVIEW OF SYSTEMS: CONSTITUTIONAL: No fever, no malaise,. CARDIOVASCULAR: No chest pain, no palpitations, no syncope. PULMONARY: As mentioned above GASTROINTESTINAL: No diarrhea, no nausea, no vomiting, no abdominal pain. NEUROLOGICAL: No headaches, no weakness, PHYSICAL EXAMINATION: GENERAL: The patient is alert and oriented x3, not in any acute distress. Well developed, well nourished. HEENT: Pupils are round and equally reacting to light. EOMI. No scleral icterus. No conjunctival pallor. Normocephalic, atraumatic. No pharyngeal erythema. No thyromegaly. CARDIOVASCULAR: S1 and S2 present. No murmurs, rubs, or gallops. PULMONARY: Coarse breath sounds bilaterally, expiratory rhonchi audible, no crackles ABDOMEN: Soft, nontender, nondistended, normoactive bowel sounds. No palpable organomegaly. MUSCULOSKELETAL: No joint swelling or deformity. EXTREMITIES: No cyanosis, clubbing, or pedal edema. NEUROLOGICAL: Gross neurological examination did not reveal any focal deficits. SKIN: No rashes. Assessment and plan Acute hypoxic respiratory failure Severe sepsis COVID-19 pneumonia Bacterial pneumonia History of underlying pulmonary fibrosis/IPF History of lung nodule history of chronic atrial fibrillation Coronary arteriosclerosis and previous stent placement History of aortic aneurysm and previous stent placement/abdominal aortic aneurysm Degenerative joint disease Dyslipidemia History of underlying COPD Chest pain, pleuritic and musculoskeletal in nature Acute kidney injury secondary to sepsis and hypotension and acute tubular necrosis Monitor vital signs Monitor CBC Monitor CMP Continue telemetry monitoring Follow-up on blood cultures Follow-up on sputum cultures Continue IV Zosyn Continue Decadron Currently on amiodarone drip, continue Xarelto Continue breathing treatments Pulmonology following ID following Labs and medication were reviewed.. Continue same treatment. Continue with symptomatic treatment. Resume home medication. Monitor labs and vitals. DVT and GI prophylaxis. Further recommendations as per clinical course of the patient Dictation was produced using [employer] dictation software. please excuse any grammatical, word or spelling errors. Objective - Vital Signs Vital signs: Vital Signs Temp 97.8 F 07/02/23 08:00 Pulse 88 07/02/23 12:00 Resp 15 07/02/23 12:00 BP 130/80 07/02/23 12:00 Pulse Ox 95 07/02/23 12:00 FiO2 Intake & Output 07/01/23 07/02/23 07/02/23 18:59 06:59 18:59 Intake Total 2980.945 2785.005 770.5 Output Total 1350 1010 450 Balance 9760.456 4887.005 320.5 Weight 120.1 kg 122 kg Intake: IV 1430 2160 770 Piperacillin-Tazobactam 3 100 100 .375 gm In Sodium Chloride 0.9% 100 ml @ 25 mls/hr IVPB Q8HR [facility] Rx# :[id number] Sodium Chloride 0.9% 1, 1430 1560 670 000 ml @ 20 mls/hr IV . Q24H [facility] Rx#:[id number] Vancomycin 1,750 mg In 500 Sodium Chloride 0.9% 500 ml 500 ml @ 167 mls/hr IVPB Q12H [facility] Rx#: [id number] Intake, IV Titration 1550.945 245.005 0.5 Amount Amiodarone 450 mg In 245.005 Dextrose 5% in Water 250 ml @ 0.5 MG/MIN 16.667 mls/hr IV .Q15H [facility] Rx#: [id number] Norepinephrine 4 mg In 50.945 Sodium Chloride 0.9% 250 ml @ 0.03 MCG/KG/MIN 12. 754 mls/hr IV .[id number] [facility] Rx#:[id number] Piperacillin-Tazobactam 3 1500 .375 gm In Sodium Chloride 0.9% 100 ml @ 25 mls/hr IVPB Q8HR [facility] Rx# :[id number] Vancomycin 1,750 mg In 0.5 Sodium Chloride 0.9% 500 ml 500 ml @ 167 mls/hr IVPB Q12H [facility] Rx#: [id number] Oral 380 Output: Urine 1350 1010 450 Other: Voiding Method Urinal Urinal Urinal # Voids 1 - Labs CBC & Chem 7: 07/02/23 03:17 07/02/23 03:17 Labs: Abnormal Lab Results - Last 24 Hours (Table) 07/01/23 07/01/23 07/02/23 Range/Units 14:20 17:23 03:17 WBC 17.4 H (3.8-10.6) k/uL Hgb 12.4 L (13.0-17.5) gm/dL Hct 37.9 L (39.0-53.0) % Neutrophils # 15.9 H (1.3-7.7) k/uL Lymphocytes # 0.6 L (1.0-4.8) k/uL Sodium (137-145) mmol/L Chloride (98-107) mmol/L Carbon Dioxide (22-30) mmol/L BUN (9-20) mg/dL Glucose (74-99) mg/dL Plasma Lactic Acid Po 2.5 H* 2.5 H* (0.7-2.0) mmol/L Calcium (8.4-10.2) mg/dL 07/02/23 Range/Units 03:17 WBC (3.8-10.6) k/uL Hgb (13.0-17.5) gm/dL Hct (39.0-53.0) % Neutrophils # (1.3-7.7) k/uL Lymphocytes # (1.0-4.8) k/uL Sodium 136 L (137-145) mmol/L Chloride 110 H (98-107) mmol/L Carbon Dioxide 18 L (22-30) mmol/L BUN 23 H (9-20) mg/dL Glucose 135 H (74-99) mg/dL Plasma Lactic Acid Po (0.7-2.0) mmol/L Calcium 7.9 L (8.4-10.2) mg/dL Microbiology - Last 24 Hours (Table) 06/30/23 22:57 Nasal Screen MRSA/MSSA - Final Nasal Swab 06/30/23 18:08 Blood Culture - Preliminary Blood 06/30/23 17:41 Blood Culture - Preliminary Blood
[2023-07-02] MEDS: RIVAROXABAN 20 MG TAB PO SCH (21:40)
[2023-07-02] MEDS: METOPROLOL TARTRATE 25 MG TAB PO SCH (21:40)
[2023-07-03] MEDS: PIPERACILLIN-TAZOBACTAM 3.375 GM in SODIUM CHLORIDE 0.9% 100 ML IVPB SCH ×3 (00:20→16:33)
[2023-07-03] MEDS: HYDROmorphone 1 MG/ML 1 ML SYRINGE IVP PRN ×3 (01:08→19:59)
--- NOTE | 2023-07-03 01:28 | PN ---
PROGRESS NOTE SUBJECTIVE: A 67-year-old patient with history of coronary artery disease, status post angioplasty, permanent atrial fibrillation, pulmonary fibrosis, who was admitted to hospital with COVID pneumonia, cough and sputum production, currently remains in atrial fibrillation with controlled ventricular rate. He is on IV amiodarone, which I am going to stop and start him on metoprolol 25 b.i.d. if necessary increase the dose. He is also on Xarelto for anticoagulation. OBJECTIVE: GENERAL: On exam, comfortable at rest. VITAL SIGNS: Stable. CHEST: Reveals good air entry bilaterally. HEART: Reveals first and second heart sounds. Irregular rhythm. No murmur. ABDOMEN: Soft. EXTREMITIES: Exam of extremities did not reveal any edema. LABORATORY DATA: Labs show a hemoglobin of 12.4, platelet count is 170. Potassium is 4.1, creatinine is 0.7. ASSESSMENT AND PLAN: Persistent atrial fibrillation with controlled ventricular rate. Stop the amiodarone. Start the patient on Lopressor. Continue the Xarelto. XIN / GRACEN: [id number] /
[2023-07-03 04:26] LABS: Basophils % (A) 0 %; Eosinophils % (A) 0 %; HCT 38.1 % (39.0-53.0); HGB 12.8 gm/dL (13.0-17.5); Lymphocytes # (A) 0.7 k/uL (1.0-4.8); Lymphocytes % (A) 6 %; MCHC 33.6 g/dL (31.0-37.0); MCV 86.4 fL (80.0-100.0); Mean Platelet Volume 7.4; Monocytes # (A) 0.5 k/uL (0-1.0); Monocytes % (A) 4 %; Neutrophils # (A) 11.1 k/uL (1.3-7.7); Neutrophils % (A) 89 %; Platelet Count 173 k/uL (150-450); RBC 4.41 m/uL (4.30-5.90); RDW 14.5 % (11.5-15.5); WBC 12.5 k/uL (3.8-10.6)
[2023-07-03 04:41] LABS: African American GFR (CKD) >90 (>60 ml/min/1.73 sqM); Anion Gap 6 mmol/L; Blood Urea Nitrogen 24 mg/dL (9-20); Calcium 8.2 mg/dL (8.4-10.2); Carbon Dioxide 21 mmol/L (22-30); Chloride 108 mmol/L (98-107); Glucose 134 mg/dL (74-99); Non-African American GFR(CKD) >90 (>60 ml/min/1.73 sqM); Potassium 4.1 mmol/L (3.5-5.1); Sodium 135 mmol/L (137-145)
[2023-07-03] MEDS: SODIUM CHLORIDE 0.9% 1,000 ML IV SCH (07:27)
[2023-07-03] MEDS: ASCORBIC ACID 500 MG TAB PO SCH (08:24)
[2023-07-03] MEDS: DEXAMETHASONE SOD PHOSPHATE 10 MG/ML 1 ML VIAL IVP SCH (08:24)
[2023-07-03] MEDS: METOPROLOL TARTRATE 25 MG TAB PO SCH ×2 (08:24→20:00)
[2023-07-03] MEDS: ZINC SULFATE 220 MG CAP PO SCH (08:24)
[2023-07-03] MEDS: CHOLECALCIFEROL 125 MCG (5000 IU) TABLET PO SCH (08:24)
[2023-07-03] MEDS: ALBUTEROL HFA INHALER INHALATION PRN ×2 (08:50→15:41)
--- NOTE | 2023-07-03 10:51 | P.PN ---
Subjective Progress Note Date: 07/03/23 This is a 67-year-old white male, known history of pulmonary fibrosis, patient normally sees , patient is not on any specific treatment for his pulmonary fibrosis, he was recently seen in the office, and he was complaining of cough, shortness of breath, patient received Depo-Medrol injection, and he was placed on antibiotics. This was only a few days ago. Over the last few days, the patient seems to be getting worse, now he is developing left-sided chest pain which started last night. He is also developing shortness of breath, some cough, but no fever, no chills, no hemoptysis. was seen in [facility] ER, and a CT of the chest showed significant infiltrate in the left lower lobe consistent with left lower lobe pneumonia it also showed and raised the possibility of a small subsegmental pulmonary embolus. Patient is maintained on Xarelto. He does have history of chronic atrial fibrillation. And he is compliant with her Xarelto. I reviewed the CT of the chest myself, I did not feel that the diagnosis of pulmonary embolism is conclusive. Specially what it is a subsegmental pulmonary artery finding. Nonetheless the patient is on anticoagulation therapy, however I'm quite concerned about his significant pneumonic process involving the left lower lobe. Patient was also noted to have leukocytosis with WBC count as high as 33.6 rest of the labs were basically unremarkable, lactic level was 3.9. And in addition to all of this the patient had positive COVID-19 PCR. Patient was relatively hypotensive in the ER, received fluid boluses and he continued to have low blood pressure and the patient was placed on norepinephrine at 0.03 mcg/kg/m, I saw the patient in the ER, and I recommended admitting the patient to the ICU. I believe the patient is septic and he will be treated as per protocol for sepsis and septic shock. Patient did receive Decadron, he is also now on Zosyn and he is maintained on Xarelto. Vancomycin was also given in addition to this, patient is on bronchodilators in the form of DuoNeb Patient was reevaluated today on 07/01/23, remains in the ICU,, patient went on to develop last night atrial fibrillation with RVR, patient is known to have history of atrial fibrillation, and I recommended amiodarone bolus and amiodarone drip. And recommended cardiac consultation to be done this morning. Patient remains on Decadron, Xarelto, vancomycin, and Zosyn. Patient is on few liters nasal cannula, he is hemodynamically stable, blood pressure is 96/59 with a mean of 72 O2 saturations 94%. Continues to have intermittent coughing, and some significant left sided pleuritic chest pain, requiring Dilaudid for pain management. CT angiogram on admission clearly showed evidence of left sided infiltrate, and subsegmental pulmonary embolus in the left lower lobe/tiny labs today showed improvement in his leukocytosis with WBC count down to 27.3 hemoglobin 13.7 basic metabolic profile is normal renal profile is normal. Patient is empirically on Zosyn and vancomycin, cultures are pending. The patient is seen today 07/02/2023 in follow-up in the intensive care unit. He is currently sitting up in bed. Awake and alert in no acute distress. He is maintaining O2 saturations in the 90s on 2 L/m per nasal cannula. Chest x-ray reveals similar left lung airspace opacities. No pneumothorax or pleural effusion. Blood culture revealing no growth. White count 17.4. Hemoglobin 12.4. Sodium 136. Potassium 4.1. Bicarb 18. BUN 23. Creatinine 0.74. Glucose 135. Pro-calcitonin was 3.68. COVID-19 positive. He is continued on Zosyn. Anticoagulated with Xarelto. Continued on Decadron, bronchodilators, vitamin supplements. The patient is seen today 07/03/2023 in follow-up in the intensive care unit. He is currently awake and alert in no acute distress. He is maintaining good O2 saturations in the 90s on 2 L/m per nasal cannula. He has normal saline at KVO. He is continued on Decadron, vitamin supplements, anticoagulated with Xarelto. He remains on antibiotics in the form of Zosyn. Blood cultures reveal no growth. White count 12.5. Hemoglobin 12.8. Platelets 173. Lymphocytes 0.7. Sodium 135. Potassium 4.1. Bicarb 21. BUN 24. Creatinine 0.76. Glucose 134. Today's chest x-ray showing slight improvement but the left lung airspace opacities. Objective - Vital Signs Vital signs: Vital Signs Temp 97.7 F 07/03/23 08:00 Pulse 80 07/03/23 10:00 Resp 15 07/03/23 10:00 BP 137/91 07/03/23 10:00 Pulse Ox 95 07/03/23 10:00 FiO2 Intake & Output 07/02/23 07/03/23 07/03/23 18:59 06:59 18:59 Intake Total 950.5 340 180 Output Total 750 1000 350 Balance 200.5 -660 -170 Weight 122.7 kg Intake: IV 950 340 180 Piperacillin-Tazobactam 3 200 100 100 .375 gm In Sodium Chloride 0.9% 100 ml @ 25 mls/hr IVPB Q8HR [facility] Rx# :[id number] Sodium Chloride 0.9% 1, 750 240 80 000 ml @ 20 mls/hr IV . Q24H [facility] Rx#:[id number] Intake, IV Titration 0.5 Amount Vancomycin 1,750 mg In 0.5 Sodium Chloride 0.9% 500 ml 500 ml @ 167 mls/hr IVPB Q12H [facility] Rx#: [id number] Output: Urine 750 1000 350 Other: Voiding Method Urinal Urinal Urinal # Voids 1 1 - Exam GENERAL EXAM: Alert, pleasant 67-year-old male patient, on 2 L nasal cannula, comfortable in no apparent distress. HEAD: Normocephalic. EYES: Normal reaction of pupils, equal size. NOSE: Clear with pink turbinates. THROAT: No erythema or exudates. NECK: No masses, no JVD. CHEST: No chest wall deformity. LUNGS: Equal air entry with crackles in the left lung base. CVS: S1 and S2 normal with no audible murmur, irregular rhythm. ABDOMEN: No hepatosplenomegaly, normal bowel sounds, no guarding or rigidity. SPINE: No scoliosis or deformity SKIN: No rashes CENTRAL NERVOUS SYSTEM: No focal deficits, tone is normal in all 4 extremities. EXTREMITIES: There is no peripheral edema. No clubbing, no cyanosis. Peripheral pulses are intact. - Labs CBC & Chem 7: 07/03/23 03:39 07/03/23 03:39 Labs: Abnormal Lab Results - Last 24 Hours (Table) 07/03/23 07/03/23 Range/Units 03:39 03:39 WBC 12.5 H (3.8-10.6) k/uL Hgb 12.8 L (13.0-17.5) gm/dL Hct 38.1 L (39.0-53.0) % Neutrophils # 11.1 H (1.3-7.7) k/uL Lymphocytes # 0.7 L (1.0-4.8) k/uL Sodium 135 L (137-145) mmol/L Chloride 108 H (98-107) mmol/L Carbon Dioxide 21 L (22-30) mmol/L BUN 24 H (9-20) mg/dL Glucose 134 H (74-99) mg/dL Calcium 8.2 L (8.4-10.2) mg/dL Microbiology - Last 24 Hours (Table) 06/30/23 18:08 Blood Culture - Preliminary Blood 06/30/23 17:41 Blood Culture - Preliminary Blood 06/30/23 22:57 Nasal Screen MRSA/MSSA - Final Nasal Swab Assessment and Plan Assessment: Acute left lower lobe pneumonia, most likely bacterial in nature although COVID- 19 pneumonia is not entirely ruled out. Procalcitonin 3.68. Currently on Zosyn Acute COVID-19 infection Sepsis and septic shock secondary to pneumonia, patient required a brief course of norepinephrine but he is presently off norepinephrine and he received 2 L fluid boluses while in the ER. History of underlying pulmonary fibrosis/IPF History of lung nodule being monitored on outpatient basis by Dr. Chaudhry and the patient had a recent PET scan in [place] History of chronic atrial fibrillation, continued on Xarelto Coronary arteriosclerosis and previous stent placement History of aortic aneurysm and previous stent placement/abdominal aortic aneurysm Degenerative joint disease Dyslipidemia History of underlying COPD Chest pain, pleuritic and musculoskeletal in nature Possible pulmonary embolism clinically I feel this is less likely Acute kidney injury secondary to sepsis and hypotension and acute tubular necrosis Plan: The patient was seen and evaluated Chest x-ray, labs and medications reviewed Continue Decadron, vitamin supplements Continue Xarelto Continue Zosyn Titrate the FiO2 as tolerated We'll continue to follow I have personally seen and examined the patient, performed the documentation and the assessment and plan as written. Number of minutes spent on the visit: 10.
--- NOTE | 2023-07-03 12:58 | XR ---
EXAMINATION TYPE: XR chest 1V portable DATE OF EXAM: 07/03/2023 COMPARISON: 07/02/2023 INDICATION: Left-sided pneumonia TECHNIQUE: Single frontal view of the chest is obtained. FINDINGS: The heart size is upper limits for normal. The pulmonary vasculature is normal. There is a left perihilar infiltrate. Mild right lower lobe infiltrate may be present. IMPRESSION: 1. Left perihilar and minimal right lower lobe infiltrate. Correlate for pneumonia. Findings appear s imilar to comparison. Continued follow-up is recommended.
--- NOTE | 2023-07-03 14:49 | P.PN ---
Subjective Progress Note Date: 07/02/23 Principal diagnosis: Reason for follow-up is covid 19 and pneumonia Patient is a 67-year-old male with a past medical history significant for COPD CVA TIA atrial fibrillation hypertension hyperlipidemia [place] patient presented to hospital for evaluation of increasing shortness of and chest pain, patient tested positive for covid and CT angiogram of chest was suggestive of tiny pulmonary embolism in the left lower lobe. On today's evaluation that is 07/02/2023, the patient remains to be afebrile, the patient is breathing comfortably on 2 L nasal cannula oxygen, the patient left-sided chest pain slightly decreased in intensity, no significant cough or sputum production, patient denies nausea/vomiting /diarrhea and no abdominal pain Patient did have a white count of 17.4, creatinine 0.74, pro calcitonin is 3.68, blood cultures so far pending Objective - Vital Signs Vital signs: Vital Signs Temp 97.8 F 07/02/23 08:00 Pulse 88 07/02/23 12:00 Resp 15 07/02/23 12:00 BP 130/80 07/02/23 12:00 Pulse Ox 95 07/02/23 12:00 FiO2 Intake & Output 07/01/23 07/02/23 07/02/23 18:59 06:59 18:59 Intake Total 2980.945 2785.005 770.5 Output Total 1350 1010 450 Balance 6756.501 5517.005 320.5 Weight 120.1 kg 122 kg Intake: IV 1430 2160 770 Piperacillin-Tazobactam 3 100 100 .375 gm In Sodium Chloride 0.9% 100 ml @ 25 mls/hr IVPB Q8HR [facility] Rx# :[id number] Sodium Chloride 0.9% 1, 1430 1560 670 000 ml @ 20 mls/hr IV . Q24H [facility] Rx#:[id number] Vancomycin 1,750 mg In 500 Sodium Chloride 0.9% 500 ml 500 ml @ 167 mls/hr IVPB Q12H [facility] Rx#: [id number] Intake, IV Titration 1550.945 245.005 0.5 Amount Amiodarone 450 mg In 245.005 Dextrose 5% in Water 250 ml @ 0.5 MG/MIN 16.667 mls/hr IV .Q15H [facility] Rx#: [id number] Norepinephrine 4 mg In 50.945 Sodium Chloride 0.9% 250 ml @ 0.03 MCG/KG/MIN 12. 754 mls/hr IV .[id number] [facility] Rx#:[id number] Piperacillin-Tazobactam 3 1500 .375 gm In Sodium Chloride 0.9% 100 ml @ 25 mls/hr IVPB Q8HR [facility] Rx# :[id number] Vancomycin 1,750 mg In 0.5 Sodium Chloride 0.9% 500 ml 500 ml @ 167 mls/hr IVPB Q12H [facility] Rx#: [id number] Oral 380 Output: Urine 1350 1010 450 Other: Voiding Method Urinal Urinal Urinal # Voids 1 - Exam GENERAL DESCRIPTION: An elderly male lying in bed in no distress RESPIRATORY SYSTEM: Unlabored breathing , decreased breath sound the bases HEART: S1 S2 regular rate and rhythm , ABDOMEN: Soft , no tenderness EXTREMITIES: No edema feet - Labs CBC & Chem 7: 07/03/23 03:39 07/03/23 03:39 Labs: Abnormal Lab Results - Last 24 Hours (Table) 07/01/23 07/01/23 07/02/23 Range/Units 14:20 17:23 03:17 WBC 17.4 H (3.8-10.6) k/uL Hgb 12.4 L (13.0-17.5) gm/dL Hct 37.9 L (39.0-53.0) % Neutrophils # 15.9 H (1.3-7.7) k/uL Lymphocytes # 0.6 L (1.0-4.8) k/uL Sodium (137-145) mmol/L Chloride (98-107) mmol/L Carbon Dioxide (22-30) mmol/L BUN (9-20) mg/dL Glucose (74-99) mg/dL Plasma Lactic Acid Po 2.5 H* 2.5 H* (0.7-2.0) mmol/L Calcium (8.4-10.2) mg/dL 07/02/23 Range/Units 03:17 WBC (3.8-10.6) k/uL Hgb (13.0-17.5) gm/dL Hct (39.0-53.0) % Neutrophils # (1.3-7.7) k/uL Lymphocytes # (1.0-4.8) k/uL Sodium 136 L (137-145) mmol/L Chloride 110 H (98-107) mmol/L Carbon Dioxide 18 L (22-30) mmol/L BUN 23 H (9-20) mg/dL Glucose 135 H (74-99) mg/dL Plasma Lactic Acid Po (0.7-2.0) mmol/L Calcium 7.9 L (8.4-10.2) mg/dL Microbiology - Last 24 Hours (Table) 06/30/23 22:57 Nasal Screen MRSA/MSSA - Final Nasal Swab 06/30/23 18:08 Blood Culture - Preliminary Blood 06/30/23 17:41 Blood Culture - Preliminary Blood Assessment and Plan (1) COVID-19 Current Visit: Yes Status: Acute Code(s): U07.1 - COVID-19 SNOMED Code(s): 421235530 (2) Right middle lobe pneumonia Current Visit: No Status: Acute Code(s): J18.9 - PNEUMONIA, UNSPECIFIED ORGANISM SNOMED Code(s): 049816247 Plan: 1patient was in the hospital with sepsis in this patient who did have a fever elevated white count tachycardia source is likely right-sided pneumonia patient did have elevated procalcitonin and likely component of bacterial however the pa tient to have a features of acute COVID-19 infection with a complication of PE as documented on CT angiogram of the chest 2-we will try to obtain a sputum for Gram stain culture, patient did have elev ated pro calcitonin of 3.68 3-patient to continue with the Zosyn and vancomycin has been discontinued Dictation was produced using [employer] dictation software. please excuse any grammatical, word or spelling errors.
--- NOTE | 2023-07-03 14:51 | P.PN ---
Subjective Progress Note Date: 07/03/23 Principal diagnosis: Reason for follow-up is covid 19 and pneumonia Patient is a 67-year-old male with a past medical history significant for COPD CVA TIA atrial fibrillation hypertension hyperlipidemia [place] patient presented to hospital for evaluation of increasing shortness of and chest pain, patient tested positive for covid and CT angiogram of chest was suggestive of tiny pulmonary embolism in the left lower lobe. On today's evaluation that is 07/03/2023, the patient denies any fever or any chills, the patient is breathing comfortably on 2 L nasal cannula supplemental oxygen, patient left-sided chest pain has decreased in intensity and denies shortness of breath, the patient did have mild cough and occasional sputum production, patient denies Abdominal pain, no nausea/vomiting or diarrhea Patient white count is down to 12.5, creatinine is 0.75, pro calcitonin is 3.68, blood cultures so far pending Objective - Vital Signs Vital signs: Vital Signs Temp 98.1 F 07/03/23 12:00 Pulse 78 07/03/23 13:00 Resp 15 07/03/23 13:00 BP 141/101 07/03/23 13:00 Pulse Ox 96 07/03/23 13:00 FiO2 Intake & Output 07/02/23 07/03/23 07/03/23 18:59 06:59 18:59 Intake Total 950.5 340 240 Output Total 750 1000 675 Balance 200.5 -660 -435 Weight 122.7 kg Intake: IV 950 340 240 Piperacillin-Tazobactam 3 200 100 100 .375 gm In Sodium Chloride 0.9% 100 ml @ 25 mls/hr IVPB Q8HR MIN Rx# :[id number] Sodium Chloride 0.9% 1, 750 240 140 000 ml @ 20 mls/hr IV . Q24H MIN Rx#:[id number] Intake, IV Titration 0.5 Amount Vancomycin 1,750 mg In 0.5 Sodium Chloride 0.9% 500 ml 500 ml @ 167 mls/hr IVPB Q12H MIN Rx#: [id number] Output: Urine 750 1000 675 Other: Voiding Method Urinal Urinal Urinal # Voids 1 1 - Exam GENERAL DESCRIPTION: An elderly male lying in bed in no distress RESPIRATORY SYSTEM: Unlabored breathing , decreased breath sound the bases HEART: S1 S2 regular rate and rhythm , ABDOMEN: Soft , no tenderness EXTREMITIES: No edema feet - Labs CBC & Chem 7: 07/03/23 03:39 07/03/23 03:39 Labs: Abnormal Lab Results - Last 24 Hours (Table) 07/03/23 07/03/23 Range/Units 03:39 03:39 WBC 12.5 H (3.8-10.6) k/uL Hgb 12.8 L (13.0-17.5) gm/dL Hct 38.1 L (39.0-53.0) % Neutrophils # 11.1 H (1.3-7.7) k/uL Lymphocytes # 0.7 L (1.0-4.8) k/uL Sodium 135 L (137-145) mmol/L Chloride 108 H (98-107) mmol/L Carbon Dioxide 21 L (22-30) mmol/L BUN 24 H (9-20) mg/dL Glucose 134 H (74-99) mg/dL Calcium 8.2 L (8.4-10.2) mg/dL Microbiology - Last 24 Hours (Table) 06/30/23 18:08 Blood Culture - Preliminary Blood 06/30/23 17:41 Blood Culture - Preliminary Blood Assessment and Plan (1) COVID-19 Current Visit: Yes Status: Acute Code(s): U07.1 - COVID-19 SNOMED Code(s): 078509926 (2) Right middle lobe pneumonia Current Visit: No Status: Acute Code(s): J18.9 - PNEUMONIA, UNSPECIFIED ORGANISM SNOMED Code(s): 198887626 Plan: 1patient was in the hospital with sepsis in this patient who did have a fever elevated white count tachycardia source is likely right-sided pneumonia patient did have elevated procalcitonin and likely component of bacterial however the patient to have a features of acute COVID-19 infection with a complication of PE as documented on CT angiogram of the chest 2-sputum cultures are currently pending blood cultures so far negative, patient did have elevated pro calcitonin of 3.68 3-patient did have some clinical improvement and will continue with the Zosyn, monitor clinical course closely Dictation was produced using [employer] dictation software. please excuse any grammatical, word or spelling errors. Time with Patient: Less than 30
[2023-07-03] MEDS ORDERED: FUROSEMIDE 10 MG/ML 4 ML VIAL IV STA (15:58)
--- NOTE | 2023-07-03 17:34 | P.PN ---
Subjective Progress Note Date: 07/03/23 The patient is a 67-year-old gentleman who sees a keno terminal operator in [facility] with a past medical history significant for coronary artery disease with prior angioplasty with unknown details as well as history of permanent atrial fibrillation on oral anticoagulation as well as hypertension and dyslipidemia and pulmonary fibrosis. The patient presented to the hospital was increasing shortness of breath associated with cough with sputum production.The patient was diagnosed with COVID-19 infection. He was hypoxic and he was on oxygen at 2 L right now. He was not on oxygen at home. No pain in the chest and no dizziness or lightheadedness and no feeling of heart racing or fluttering and no presynco pe or syncope. We consulted to see the patient for the management of atrial fibrillation with RVR when the patient presented to the hospital and subsequently he was started on amiodarone IV by the pulmonary/critical care team. Currently he has been maintaining heart rate in the 100. He is hypoten sive and currently he is on a small dose of norepinephrine. The EKG showed atrial fibrillation with diffuse nonspecific ST and T wave abnormalities. He was restarted back on oral anticoagulation. The examination is remarkable for distant heart sounds with irregular rhythm and diminished breathing sounds bilaterally with bilateral rhonchi likely related to pulmonary fibrosis and not heart failure. No lower extremity is edema noted. He doesn't look in overt congestive heart failure 06/02/2023 Patient is doing well from cardiac arrest for standpoint. He is in atrial fibrillation but is rate controlled. He denies having any active chest pain chest pressure or shortness of breath. He does appear mildly volume overloaded today with elevated JVD and lower extremity edema. BP 150/80 mmHg Heart rate 98 beats a minute. Telemetry shows atrial fibrillation. Cardiac: Irregular pulse, no significant murmurs appreciated Respiratory: Bilateral crackles audible Extremities: 1+ pitting edema in bilateral lower extremity Neurological: Normal mood and affect, alert oriented, no focal deficits Assessment COVID-19 pneumonia Pulmonary fibrosis Coronary artery disease with prior revascularization with unknown details Permanent atrial fibrillation with controlled heart rate. Not on amiodarone due to pulmonary fibrosis History of infrarenal abdominal aortic aneurysm repair Multiple comorbid conditions Plan Continue metoprolol 50 mg twice a day Give 1 dose of IV Lasix 40 mg daily. Reevaluate for the need of Lasix tomorrow Continue Xarelto 20 mg daily Consider cardioversion if patient doesnot improve clinically Obtain echocardiogram Objective - Vital Signs Vital signs: Vital Signs Temp 97.8 F 07/03/23 16:00 Pulse 87 07/03/23 17:00 Resp 13 07/03/23 17:00 BP 150/89 07/03/23 17:00 Pulse Ox 95 07/03/23 17:00 FiO2 Intake & Output 07/02/23 07/03/23 07/03/23 18:59 06:59 18:59 Intake Total 950.5 340 320 Output Total 750 1000 1950 Balance 200.5 -660 -1630 Weight 122.7 kg Intake: IV 950 340 320 Piperacillin-Tazobactam 3 200 100 100 .375 gm In Sodium Chloride 0.9% 100 ml @ 25 mls/hr IVPB Q8HR MIN Rx# :[id number] Sodium Chloride 0.9% 1, 750 240 220 000 ml @ 20 mls/hr IV . Q24H MIN Rx#:[id number] Intake, IV Titration 0.5 Amount Vancomycin 1,750 mg In 0.5 Sodium Chloride 0.9% 500 ml 500 ml @ 167 mls/hr IVPB Q12H MIN Rx#: [id number] Output: Urine 750 1000 1950 Other: Voiding Method Urinal Urinal Urinal # Voids 1 1 - Labs CBC & Chem 7: 07/03/23 03:39 07/03/23 03:39 Labs: Abnormal Lab Results - Last 24 Hours (Table) 07/03/23 07/03/23 Range/Units 03:39 03:39 WBC 12.5 H (3.8-10.6) k/uL Hgb 12.8 L (13.0-17.5) gm/dL Hct 38.1 L (39.0-53.0) % Neutrophils # 11.1 H (1.3-7.7) k/uL Lymphocytes # 0.7 L (1.0-4.8) k/uL Sodium 135 L (137-145) mmol/L Chloride 108 H (98-107) mmol/L Carbon Dioxide 21 L (22-30) mmol/L BUN 24 H (9-20) mg/dL Glucose 134 H (74-99) mg/dL Calcium 8.2 L (8.4-10.2) mg/dL Microbiology - Last 24 Hours (Table) 06/30/23 18:08 Blood Culture - Preliminary Blood 06/30/23 17:41 Blood Culture - Preliminary Blood
--- NOTE | 2023-07-03 19:51 | P.PN ---
Subjective Progress Note Date: 07/03/23 Patient monitored in the intensive care unit. He remains on 2L of oxygen and continues with persistent cough mostly non productive. On IV zosyn. Patient continues on IV decadron. Chest xray today shows left perihilar and minimal right lower lobe infiltrate. Correlate for pneumonia. Similar to previous. White count 12.5. Lactic acid has normalized. Patient states hasn't had a BM in a few days although he hasn't had much oral intake due to decreased appetite. Review of Systems Constitutional: Denied any fatigue denied any fever. Cardio vascular: denied any chest pain, palpitations Gastrointestinal: denied any nausea, vomiting, diarrhea Pulmonary: Reports shortness of breath, reports cough Neurologic denied any new focal deficits, weakness. All inpatient medications were reviewed and appropriate changes in these medications as dictated in the interval history and assessment and plan. PHYSICAL EXAMINATION: GENERAL: The patient is alert and oriented x3, not in any acute distress. Well developed, well nourished. HEENT: Pupils are round and equally reacting to light. EOMI. No scleral icterus. No conjunctival pallor. Normocephalic, atraumatic. No pharyngeal erythema. No thyromegaly. CARDIOVASCULAR: S1 and S2 present. No murmurs, rubs, or gallops. PULMONARY: Chest is clear to auscultation, no wheezing or crackles. Lungs are diminished, on 2L of oxygen. ABDOMEN: Soft, nontender, nondistended, normoactive bowel sounds. No palpable organomegaly. MUSCULOSKELETAL: No joint swelling or deformity. EXTREMITIES: No cyanosis, clubbing, or pedal edema. NEUROLOGICAL: Gross neurological examination did not reveal any focal deficits. Generalized weakness. SKIN: No rashes. Assessment COVID-19 pneumonia and sepsis present on admission Acute hypoxemic respiratory failure secondary to above currently on 2L of oxygen Bacterial pneumonia Acute kidney injury secondary to sepsis and hypotension and acute tubular necrosis History of underlying pulmonary fibrosis/IPF History of lung nodule history of chronic atrial fibrillation anticoagulated with xarelto Coronary arteriosclerosis and previous stent placement History of aortic aneurysm and previous stent placement/abdominal aortic aneurysm Degenerative joint disease Dyslipidemia History of underlying COPD Chest pain, pleuritic and musculoskeletal in nature GI prophylaxis DVT prophylaxis Full Code Plan Patient continues on IV decadron and vitamin support with zinc, Vitamin C and Vitamin D. Continue on IV antibiotics Continue with incentive spirometer and wean oxygen as tolerated Encourage increased oral intake and continue on ensure Add protonix for GI prophylaxis PT/OT have been consulted. Cardiology, ID and pulmonary washing machine assembler following closely. Repeat labs in AM. The impression and plan of care has been dictated by Idalia Almazan, Nurse Practitioner as directed. Dr. Suyapa MD I have performed a history and physical examination and medical decision making of this patient, discussed the same with the dictator, and agree with the dictators assessment and plan as written, documented as a scribe. Based on total visit time, I have performed more than 50% of this visit. Objective - Vital Signs Vital signs: Vital Signs Temp 98.1 F 07/03/23 12:00 Pulse 85 07/03/23 15:00 Resp 21 07/03/23 15:00 BP 151/97 07/03/23 15:00 Pulse Ox 97 07/03/23 15:00 FiO2 Intake & Output 07/02/23 07/03/23 07/03/23 18:59 06:59 18:59 Intake Total 950.5 340 280 Output Total 750 1000 1175 Balance 200.5 -660 -895 Weight 122.7 kg Intake: IV 950 340 280 Piperacillin-Tazobactam 3 200 100 100 .375 gm In Sodium Chloride 0.9% 100 ml @ 25 mls/hr IVPB Q8HR MIN Rx# :[id number] Sodium Chloride 0.9% 1, 750 240 180 000 ml @ 20 mls/hr IV . Q24H MIN Rx#:[id number] Intake, IV Titration 0.5 Amount Vancomycin 1,750 mg In 0.5 Sodium Chloride 0.9% 500 ml 500 ml @ 167 mls/hr IVPB Q12H MIN Rx#: [id number] Output: Urine 750 1000 1175 Other: Voiding Method Urinal Urinal Urinal # Voids 1 1 - Labs CBC & Chem 7: 07/03/23 03:39 07/03/23 03:39 Labs: Abnormal Lab Results - Last 24 Hours (Table) 07/03/23 07/03/23 Range/Units 03:39 03:39 WBC 12.5 H (3.8-10.6) k/uL Hgb 12.8 L (13.0-17.5) gm/dL Hct 38.1 L (39.0-53.0) % Neutrophils # 11.1 H (1.3-7.7) k/uL Lymphocytes # 0.7 L (1.0-4.8) k/uL Sodium 135 L (137-145) mmol/L Chloride 108 H (98-107) mmol/L Carbon Dioxide 21 L (22-30) mmol/L BUN 24 H (9-20) mg/dL Glucose 134 H (74-99) mg/dL Calcium 8.2 L (8.4-10.2) mg/dL Microbiology - Last 24 Hours (Table) 06/30/23 18:08 Blood Culture - Preliminary Blood 06/30/23 17:41 Blood Culture - Preliminary Blood Assessment and Plan Time with Patient: Less than 30
[2023-07-03] MEDS: RIVAROXABAN 20 MG TAB PO SCH (20:00)
[2023-07-04] MEDS: PIPERACILLIN-TAZOBACTAM 3.375 GM in SODIUM CHLORIDE 0.9% 100 ML IVPB SCH ×4 (00:15→23:14)
[2023-07-04] MEDS: HYDROmorphone 1 MG/ML 1 ML SYRINGE IVP PRN ×2 (00:22→10:59)
[2023-07-04 04:55] LABS: Basophils % (A) 0 %; Eosinophils % (A) 0 %; HCT 42.1 % (39.0-53.0); HGB 14.3 gm/dL (13.0-17.5); Lymphocytes # (A) 0.9 k/uL (1.0-4.8); Lymphocytes % (A) 7 %; MCH 28.9 pg (25.0-35.0); MCHC 33.9 g/dL (31.0-37.0); MCV 85.2 fL (80.0-100.0); Mean Platelet Volume 7.3; Monocytes # (A) 0.6 k/uL (0-1.0); Monocytes % (A) 5 %; Neutrophils # (A) 10.4 k/uL (1.3-7.7); Neutrophils % (A) 85 %; Platelet Count 226 k/uL (150-450); RBC 4.94 m/uL (4.30-5.90); RDW 14.4 % (11.5-15.5); WBC 12.3 k/uL (3.8-10.6)
[2023-07-04 05:14] LABS: African American GFR (CKD) >90 (>60 ml/min/1.73 sqM); Anion Gap 7 mmol/L; Blood Urea Nitrogen 30 mg/dL (9-20); Calcium 8.5 mg/dL (8.4-10.2); Carbon Dioxide 27 mmol/L (22-30); Chloride 101 mmol/L (98-107); Glucose 137 mg/dL (74-99); Non-African American GFR(CKD) >90 (>60 ml/min/1.73 sqM); Potassium 3.8 mmol/L (3.5-5.1); Sodium 135 mmol/L (137-145)
[2023-07-04] MEDS: PANTOPRAZOLE 40 MG TABLET PO SCH (06:56)
[2023-07-04] MEDS ORDERED: POTASSIUM CHLORIDE ER 20 MEQ TAB.ER PO SCH (07:00)
[2023-07-04] MEDS: SODIUM CHLORIDE 0.9% 1,000 ML IV SCH ×2 (07:01→23:02)
[2023-07-04] MEDS: ALBUTEROL HFA INHALER INHALATION PRN ×4 (09:03→20:20)
[2023-07-04] MEDS: polyethylene glycoL 3350 17 GM POWD.PACK PO SCH (09:14)
[2023-07-04] MEDS: CHOLECALCIFEROL 125 MCG (5000 IU) TABLET PO SCH (09:14)
[2023-07-04] MEDS: ASCORBIC ACID 500 MG TAB PO SCH (09:14)
[2023-07-04] MEDS: METOPROLOL TARTRATE 25 MG TAB PO SCH ×2 (09:14→21:28)
[2023-07-04] MEDS: DEXAMETHASONE SOD PHOSPHATE 10 MG/ML 1 ML VIAL IVP SCH (09:14)
[2023-07-04] MEDS: ZINC SULFATE 220 MG CAP PO SCH (09:15)
--- NOTE | 2023-07-04 11:22 | P.PN ---
Subjective Progress Note Date: 07/04/23 This is a 67-year-old white male, known history of pulmonary fibrosis, patient normally sees , patient is not on any specific treatment for his pulmonary fibrosis, he was recently seen in the office, and he was complaining of cough, shortness of breath, patient received Depo-Medrol injection, and he was placed on antibiotics. This was only a few days ago. Over the last few days, the patient seems to be getting worse, now he is developing left-sided chest pain which started last night. He is also developing shortness of breath, some cough, but no fever, no chills, no hemoptysis. was seen in [facility] ER, and a CT of the chest showed significant infiltrate in the left lower lobe consistent with left lower lobe pneumonia it also showed and raised the possibility of a small subsegmental pulmonary embolus. Patient is maintained on Xarelto. He does have history of chronic atrial fibrillation. And he is compliant with her Xarelto. I reviewed the CT of the chest myself, I did not feel that the diagnosis of pulmonary embolism is conclusive. Specially what it is a subsegmental pulmonary artery finding. Nonetheless the patient is on anticoagulation therapy, however I'm quite concerned about his significant pneumonic process involving the left lower lobe. Patient was also noted to have leukocytosis with WBC count as high as 33.6 rest of the labs were basically unremarkable, lactic level was 3.9. And in addition to all of this the patient had positive COVID-19 PCR. Patient was relatively hypotensive in the ER, received fluid boluses and he continued to have low blood pressure and the patient was placed on norepinephrine at 0.03 mcg/kg/m, I saw the patient in the ER, and I recommended admitting the patient to the ICU. I believe the patient is septic and he will be treated as per protocol for sepsis and septic shock. Patient did receive Decadron, he is also now on Zosyn and he is maintained on Xarelto. Vancomycin was also given in addition to this, patient is on bronchodilators in the form of DuoNeb Patient was reevaluated today on 07/01/23, remains in the ICU,, patient went on to develop last night atrial fibrillation with RVR, patient is known to have history of atrial fibrillation, and I recommended amiodarone bolus and amiodarone drip. And recommended cardiac consultation to be done this morning. Patient remains on Decadron, Xarelto, vancomycin, and Zosyn. Patient is on few liters nasal cannula, he is hemodynamically stable, blood pressure is 96/59 with a mean of 72 O2 saturations 94%. Continues to have intermittent coughing, and some significant left sided pleuritic chest pain, requiring Dilaudid for pain management. CT angiogram on admission clearly showed evidence of left sided infiltrate, and subsegmental pulmonary embolus in the left lower lobe/tiny labs today showed improvement in his leukocytosis with WBC count down to 27.3 hemoglobin 13.7 basic metabolic profile is normal renal profile is normal. Patient is empirically on Zosyn and vancomycin, cultures are pending. The patient is seen today 07/02/2023 in follow-up in the intensive care unit. He is currently sitting up in bed. Awake and alert in no acute distress. He is maintaining O2 saturations in the 90s on 2 L/m per nasal cannula. Chest x-ray reveals similar left lung airspace opacities. No pneumothorax or pleural effusion. Blood culture revealing no growth. White count 17.4. Hemoglobin 12.4. Sodium 136. Potassium 4.1. Bicarb 18. BUN 23. Creatinine 0.74. Glucose 135. Pro-calcitonin was 3.68. COVID-19 positive. He is continued on Zosyn. Anticoagulated with Xarelto. Continued on Decadron, bronchodilators, vitamin supplements. The patient is seen today 07/03/2023 in follow-up in the intensive care unit. He is currently awake and alert in no acute distress. He is maintaining good O2 saturations in the 90s on 2 L/m per nasal cannula. He has normal saline at KVO. He is continued on Decadron, vitamin supplements, anticoagulated with Xarelto. He remains on antibiotics in the form of Zosyn. Blood cultures reveal no growth. White count 12.5. Hemoglobin 12.8. Platelets 173. Lymphocytes 0.7. Sodium 135. Potassium 4.1. Bicarb 21. BUN 24. Creatinine 0.76. Glucose 134. Today's chest x-ray showing slight improvement but the left lung airspace opacities. The patient is seen today 07/04/2023 in follow-up in the intensive care unit. He is currently sitting up in bed. Awake and alert in no acute distress. Maintaining O2 saturations in the 90s on 2 L/m per nasal cannula. He has normal saline at KVO. White count 12.3. Hemoglobin 14.3. Platelets 226. Sodium 135. Potassium 3.8. Bicarb 27. BUN 30. Creatinine 0.73. Glucose 137. He is continued on Decadron. Anticoagulated with Eliquis. Remains on vitamin supplements. Remains on Zosyn. Objective - Vital Signs Vital signs: Vital Signs Temp 98.1 F 07/04/23 04:00 Pulse 85 07/04/23 07:00 Resp 14 07/04/23 07:00 BP 134/85 07/04/23 07:00 Pulse Ox 93 L 07/04/23 09:03 FiO2 Intake & Output 07/03/23 07/04/23 07/04/23 18:59 06:59 18:59 Intake Total 440 260 20 Output Total 3500 4250 0 Balance -3060 -3990 20 Weight 118.5 kg Intake: IV 440 260 20 Piperacillin-Tazobactam 3 200 100 .375 gm In Sodium Chloride 0.9% 100 ml @ 25 mls/hr IVPB Q8HR MIN Rx# :[id number] Sodium Chloride 0.9% 1, 240 160 20 000 ml @ 20 mls/hr IV . Q24H MIN Rx#:[id number] Output: Urine 3500 4250 0 Other: Voiding Method Urinal Urinal # Voids 1 - Exam GENERAL EXAM: Alert, 67-year-old male patient, and up in bed, on 2 L nasal cannula, comfortable in no apparent distress. HEAD: Normocephalic. EYES: Normal reaction of pupils, equal size. NOSE: Clear with pink turbinates. THROAT: No erythema or exudates. NECK: No masses, no JVD. CHEST: No chest wall deformity. LUNGS: Equal air entry with crackles in the left lung base. CVS: S1 and S2 normal with no audible murmur, irregular rhythm. ABDOMEN: No hepatosplenomegaly, normal bowel sounds, no guarding or rigidity. SPINE: No scoliosis or deformity SKIN: No rashes CENTRAL NERVOUS SYSTEM: No focal deficits, tone is normal in all 4 extremities. EXTREMITIES: There is no peripheral edema. No clubbing, no cyanosis. Peripheral pulses are intact. - Labs CBC & Chem 7: 07/04/23 04:16 07/04/23 04:16 Labs: Abnormal Lab Results - Last 24 Hours (Table) 07/04/23 07/04/23 Range/Units 04:16 04:16 WBC 12.3 H (3.8-10.6) k/uL Neutrophils # 10.4 H (1.3-7.7) k/uL Lymphocytes # 0.9 L (1.0-4.8) k/uL Sodium 135 L (137-145) mmol/L BUN 30 H (9-20) mg/dL Glucose 137 H (74-99) mg/dL Microbiology - Last 24 Hours (Table) 07/03/23 10:15 Gram Stain - Preliminary Sputum 06/30/23 18:08 Blood Culture - Preliminary Blood 06/30/23 17:41 Blood Culture - Preliminary Blood Assessment and Plan Assessment: Acute left lower lobe pneumonia, most likely bacterial in nature although COVID- 19 pneumonia is not entirely ruled out. Procalcitonin 3.68. Currently on Zosyn Acute COVID-19 infection Sepsis and septic shock secondary to pneumonia, patient required a brief course of norepinephrine but he is presently off norepinephrine and he received 2 L fluid boluses while in the ER. History of underlying pulmonary fibrosis/IPF History of lung nodule being monitored on outpatient basis by Dr. Chaudhry and the patient had a recent PET scan in [place] History of chronic atrial fibrillation, continued on Xarelto Coronary arteriosclerosis and previous stent placement History of aortic aneurysm and previous stent placement/abdominal aortic aneurysm Degenerative joint disease Dyslipidemia History of underlying COPD Chest pain, pleuritic and musculoskeletal in nature Possible pulmonary embolism clinically I feel this is less likely Acute kidney injury secondary to sepsis and hypotension and acute tubular necrosis Plan: The patient was seen and evaluated Labs and medications reviewed Continue Decadron, vitamin supplements Continue Xarelto, Zosyn Titrate the FiO2 as tolerated Transfer to the regular medical floor with telemetry We'll continue to follow I have personally seen and examined the patient, performed the documentation and the assessment and plan as written. Number of minutes spent on the visit: 10.
[2023-07-04] MEDS ORDERED: guaiFENesin SYRUP 100MG/5ML 200 MG/10 ML CUP PO PRN (12:56)
[2023-07-04] MEDS ORDERED: traMADol 50 MG TAB PO PRN (12:57)
--- NOTE | 2023-07-04 13:43 | XR ---
EXAMINATION TYPE: XR ribs LT w pa chest xray DATE OF EXAM: 07/04/2023 1:33 PM CLINICAL INDICATION:Male, 67 years old with history of Pain with deep inspiration; [facility] COMPARISON: 06/25/2023. TECHNIQUE: XR ribs LT w pa chest xray; Frontal and oblique views of the ribs with frontal chest radio graph. FINDINGS: Cortical deformity to left rib 8 seen on one view only. No additional evidence of fracture. Overall, the lungs are clear. The cardiac silhouette is normal in size. The remaining osseous stru ctures are intact. Aortic stent graft is present. Left perihilar airspace opacities remain present. IMPRESSION: Deformity to the left ribs 8 seen on one view only correlate with point tenderness for fracture. Left hilar airspace opacities as seen on prior CT. Likely the cause of the patient's pain.
[2023-07-04] MEDS: BENZONATATE 100 MG CAP PO SCH ×3 (15:39→21:28)
--- NOTE | 2023-07-04 15:52 | P.PN ---
Subjective Progress Note Date: 07/04/23 Patient monitored in the intensive care unit. He remains on 2L of oxygen and continues with persistent cough mostly non productive. On IV zosyn. Patient continues on IV decadron. Chest xray today shows left perihilar and minimal right lower lobe infiltrate. Correlate for pneumonia. Similar to previous. White count 12.5. Lactic acid has normalized. Patient states hasn't had a BM in a few days although he hasn't had much oral intake due to decreased appetite. 07/04/2023 Patient is evaluated today in the ICU. Complaints of left sided rib pain worse with coughing and deep inspiration. He is requesting pain medication. Patient was given a one-time dose of IV lasix yesterday, continues on IV Zosyn and IV Decadron. Remains on 2L of oxygen. Review of Systems Constitutional: Denied any fatigue denied any fever. Cardio vascular: denied any chest pain, palpitations Gastrointestinal: denied any nausea, vomiting, diarrhea Pulmonary: Reports shortness of breath, reports cough, reports pleuritic chest p ain Neurologic denied any new focal deficits, weakness. All inpatient medications were reviewed and appropriate changes in these medications as dictated in the interval history and assessment and plan. PHYSICAL EXAMINATION: GENERAL: The patient is alert and oriented x3, not in any acute distress. Well developed, well nourished. HEENT: Pupils are round and equally reacting to light. EOMI. No scleral icterus. No conjunctival pallor. Normocephalic, atraumatic. No pharyngeal erythema. No thyromegaly. CARDIOVASCULAR: S1 and S2 present. No murmurs, rubs, or gallops. PULMONARY: Chest is clear to auscultation, no wheezing or crackles. Lungs are diminished, on 2L of oxygen. ABDOMEN: Soft, nontender, nondistended, normoactive bowel sounds. No palpable organomegaly. MUSCULOSKELETAL: No joint swelling or deformity. EXTREMITIES: No cyanosis, clubbing, or pedal edema. NEUROLOGICAL: Gross neurological examination did not reveal any focal deficits. Generalized weakness. SKIN: No rashes. Assessment COVID-19 pneumonia and sepsis present on admission Acute hypoxemic respiratory failure secondary to above currently on 2L of oxygen Bacterial pneumonia Acute kidney injury secondary to sepsis and hypotension and acute tubular necrosis History of underlying pulmonary fibrosis/IPF History of lung nodule history of chronic atrial fibrillation anticoagulated with xarelto Coronary arteriosclerosis and previous stent placement History of aortic aneurysm and previous stent placement/abdominal aortic aneurysm Degenerative joint disease Dyslipidemia History of underlying COPD Chest pain, pleuritic and musculoskeletal in nature GI prophylaxis DVT prophylaxis Full Code Plan Left sided rib xray ordered as well as antitussives and tramadol for pain. Patient continues on IV decadron and vitamin support with zinc, Vitamin C and Vitamin D. Continue on IV antibiotics Continue with incentive spirometer and wean oxygen as tolerated Encourage increased oral intake and continue on ensure PT/OT have been consulted. Cardiology, ID and pulmonary cloth winder following closely. The impression and plan of care has been dictated by Idalia Almazan, Nurse Practitioner as directed. Dr. Suyapa MD I have performed a history and physical examination and medical decision making of this patient, discussed the same with the dictator, and agree with the dictators assessment and plan as written, documented as a scribe. Based on total visit time, I have performed more than 50% of this visit. Objective - Vital Signs Vital signs: Vital Signs Temp 98.6 F 07/04/23 12:00 Pulse 86 07/04/23 12:00 Resp 28 H 07/04/23 12:00 BP 132/78 07/04/23 12:00 Pulse Ox 91 L 07/04/23 12:00 FiO2 Intake & Output 07/03/23 07/04/23 07/04/23 18:59 06:59 18:59 Intake Total 440 260 820 Output Total 3500 4250 900 Balance -3060 -3990 -80 Weight 118.5 kg Intake: IV 440 260 220 Piperacillin-Tazobactam 3 200 100 100 .375 gm In Sodium Chloride 0.9% 100 ml @ 25 mls/hr IVPB Q8HR MIN Rx# :[id number] Sodium Chloride 0.9% 1, 240 160 120 000 ml @ 20 mls/hr IV . Q24H MIN Rx#:[id number] Oral 600 Output: Urine 3500 4250 900 Other: Voiding Method Urinal Urinal Urinal # Voids 1 # Bowel Movements 1 - Labs CBC & Chem 7: 07/04/23 04:16 07/04/23 04:16 Labs: Abnormal Lab Results - Last 24 Hours (Table) 07/04/23 07/04/23 Range/Units 04:16 04:16 WBC 12.3 H (3.8-10.6) k/uL Neutrophils # 10.4 H (1.3-7.7) k/uL Lymphocytes # 0.9 L (1.0-4.8) k/uL Sodium 135 L (137-145) mmol/L BUN 30 H (9-20) mg/dL Glucose 137 H (74-99) mg/dL Microbiology - Last 24 Hours (Table) 07/03/23 10:15 Gram Stain - Preliminary Sputum 06/30/23 18:08 Blood Culture - Preliminary Blood 06/30/23 17:41 Blood Culture - Preliminary Blood Assessment and Plan Time with Patient: Less than 30
--- NOTE | 2023-07-04 18:00 | P.PN ---
Subjective Progress Note Date: 07/04/23 The patient is a 67-year-old gentleman who sees a personnel administrator in [facility] with a past medical history significant for coronary artery disease with prior angioplasty with unknown details as well as history of permanent atrial fibrillation on oral anticoagulation as well as hypertension and dyslipidemia and pulmonary fibrosis. The patient presented to the hospital was increasing shortness of breath associated with cough with sputum production.The patient was diagnosed with COVID-19 infection. He was hypoxic and he was on oxygen at 2 L right now. He was not on oxygen at home. No pain in the chest and no dizziness or lightheadedness and no feeling of heart racing or fluttering and no presynco pe or syncope. We consulted to see the patient for the management of atrial fibrillation with RVR when the patient presented to the hospital and subsequently he was started on amiodarone IV by the pulmonary/critical care team. Currently he has been maintaining heart rate in the 100. He is hypoten sive and currently he is on a small dose of norepinephrine. The EKG showed atrial fibrillation with diffuse nonspecific ST and T wave abnormalities. He was restarted back on oral anticoagulation. The examination is remarkable for distant heart sounds with irregular rhythm and diminished breathing sounds bilaterally with bilateral rhonchi likely related to pulmonary fibrosis and not heart failure. No lower extremity is edema noted. He doesn't look in overt congestive heart failure 07/03/2023 Patient is doing well from cardiac arrest for standpoint. He is in atrial fibrillation but is rate controlled. He denies having any active chest pain chest pressure or shortness of breath. He does appear mildly volume overloaded today with elevated JVD and lower extremity edema. 07/04/23 Patient is doing well from cardiac vessel standpoint. He is in good rate control atrial fibrillation. He denies any chest pain chest pressure shortness of breath. He is not in volume overloaded today. His chest x-ray does not show significant pulmonary congestion. He had good urine output to 1 dose of IV Dilaudid that he received. BP 132/78, heart rate 86, Hemoglobin 14, WBC 12, sodium 135, pressure 3.8, BUN 30, creatinine 0.7 Telemetry shows atrial fibrillation. Cardiac: Irregular pulse, no significant murmurs appreciated Respiratory: Bilateral crackles audible Extremities: 1+ pitting edema in bilateral lower extremity Neurological: Normal mood and affect, alert oriented, no focal deficits Assessment COVID-19 pneumonia Pulmonary fibrosis Coronary artery disease with prior revascularization with unknown details Permanent atrial fibrillation with controlled heart rate. Not on amiodarone due to pulmonary fibrosis History of infrarenal abdominal aortic aneurysm repair Multiple comorbid conditions Plan Continue metoprolol 50 mg twice a day Continue Xarelto 20 mg daily Obtain echocardiogram once recovered from [facility] Outpatient rhythm control strategy assessment Objective - Vital Signs Vital signs: Vital Signs Temp 98.6 F 07/04/23 12:00 Pulse 86 07/04/23 12:00 Resp 28 H 07/04/23 12:00 BP 132/78 07/04/23 12:00 Pulse Ox 91 L 07/04/23 12:00 FiO2 Intake & Output 07/03/23 07/04/23 07/04/23 18:59 06:59 18:59 Intake Total 440 260 820 Output Total 3500 4250 900 Balance -3060 -3990 -80 Weight 118.5 kg Intake: IV 440 260 220 Piperacillin-Tazobactam 3 200 100 100 .375 gm In Sodium Chloride 0.9% 100 ml @ 25 mls/hr IVPB Q8HR MIN Rx# :[id number] Sodium Chloride 0.9% 1, 240 160 120 000 ml @ 20 mls/hr IV . Q24H MIN Rx#:[id number] Oral 600 Output: Urine 3500 4250 900 Other: Voiding Method Urinal Urinal Urinal # Voids 1 # Bowel Movements 1 - Labs CBC & Chem 7: 07/04/23 04:16 07/04/23 04:16 Labs: Abnormal Lab Results - Last 24 Hours (Table) 07/04/23 07/04/23 Range/Units 04:16 04:16 WBC 12.3 H (3.8-10.6) k/uL Neutrophils # 10.4 H (1.3-7.7) k/uL Lymphocytes # 0.9 L (1.0-4.8) k/uL Sodium 135 L (137-145) mmol/L BUN 30 H (9-20) mg/dL Glucose 137 H (74-99) mg/dL Microbiology - Last 24 Hours (Table) 07/03/23 10:15 Gram Stain - Preliminary Sputum 06/30/23 18:08 Blood Culture - Preliminary Blood 06/30/23 17:41 Blood Culture - Preliminary Blood
[2023-07-04] MEDS: RIVAROXABAN 20 MG TAB PO SCH (21:28)
[2023-07-05] MEDS: PANTOPRAZOLE 40 MG TABLET PO SCH (06:36)
[2023-07-05 06:52] VITALS: RESP 17
[2023-07-05] MEDS: polyethylene glycoL 3350 17 GM POWD.PACK PO SCH (07:55)
[2023-07-05] MEDS: ALBUTEROL HFA INHALER INHALATION PRN (08:19)
[2023-07-05] MEDS: PIPERACILLIN-TAZOBACTAM 3.375 GM in SODIUM CHLORIDE 0.9% 100 ML IVPB SCH (08:27)
[2023-07-05] MEDS: CHOLECALCIFEROL 125 MCG (5000 IU) TABLET PO SCH (08:38)
[2023-07-05] MEDS: BENZONATATE 100 MG CAP PO SCH (08:38)
[2023-07-05] MEDS: ZINC SULFATE 220 MG CAP PO SCH (08:38)
[2023-07-05] MEDS: METOPROLOL TARTRATE 25 MG TAB PO SCH (08:39)
[2023-07-05] MEDS: DEXAMETHASONE SOD PHOSPHATE 10 MG/ML 1 ML VIAL IVP SCH (08:39)
[2023-07-05] MEDS: ASCORBIC ACID 500 MG TAB PO SCH (08:39)
[2023-07-05 09:38] VITALS: BP 131/87; PULSE 94; TEMP 97.9
--- NOTE | 2023-07-05 12:55 | P.PN ---
Subjective Progress Note Date: 07/05/23 This is a 67-year-old white male, known history of pulmonary fibrosis, patient normally sees , patient is not on any specific treatment for his pulmonary fibrosis, he was recently seen in the office, and he was complaining of cough, shortness of breath, patient received Depo-Medrol injection, and he was placed on antibiotics. This was only a few days ago. Over the last few days, the patient seems to be getting worse, now he is developing left-sided chest pain which started last night. He is also developing shortness of breath, some cough, but no fever, no chills, no hemoptysis. was seen in [facility] ER, and a CT of the chest showed significant infiltrate in the left lower lobe consistent with left lower lobe pneumonia it also showed and raised the possibility of a small subsegmental pulmonary embolus. Patient is maintained on Xarelto. He does have history of chronic atrial fibrillation. And he is compliant with her Xarelto. I reviewed the CT of the chest myself, I did not feel that the diagnosis of pulmonary embolism is conclusive. Specially what it is a subsegmental pulmonary artery finding. Nonetheless the patient is on anticoagulation therapy, however I'm quite concerned about his significant pneumonic process involving the left lower lobe. Patient was also noted to have leukocytosis with WBC count as high as 33.6 rest of the labs were basically unremarkable, lactic level was 3.9. And in addition to all of this the patient had positive COVID-19 PCR. Patient was relatively hypotensive in the ER, received fluid boluses and he continued to have low blood pressure and the patient was placed on norepinephrine at 0.03 mcg/kg/m, I saw the patient in the ER, and I recommended admitting the patient to the ICU. I believe the patient is septic and he will be treated as per protocol for sepsis and septic shock. Patient did receive Decadron, he is also now on Zosyn and he is maintained on Xarelto. Vancomycin was also given in addition to this, patient is on bronchodilators in the form of DuoNeb Patient was reevaluated today on 07/01/23, remains in the ICU,, patient went on to develop last night atrial fibrillation with RVR, patient is known to have history of atrial fibrillation, and I recommended amiodarone bolus and amiodarone drip. And recommended cardiac consultation to be done this morning. Patient remains on Decadron, Xarelto, vancomycin, and Zosyn. Patient is on few liters nasal cannula, he is hemodynamically stable, blood pressure is 96/59 with a mean of 72 O2 saturations 94%. Continues to have intermittent coughing, and some significant left sided pleuritic chest pain, requiring Dilaudid for pain management. CT angiogram on admission clearly showed evidence of left sided infiltrate, and subsegmental pulmonary embolus in the left lower lobe/tiny labs today showed improvement in his leukocytosis with WBC count down to 27.3 hemoglobin 13.7 basic metabolic profile is normal renal profile is normal. Patient is empirically on Zosyn and vancomycin, cultures are pending. The patient is seen today 07/02/2023 in follow-up in the intensive care unit. He is currently sitting up in bed. Awake and alert in no acute distress. He is maintaining O2 saturations in the 90s on 2 L/m per nasal cannula. Chest x-ray reveals similar left lung airspace opacities. No pneumothorax or pleural effusion. Blood culture revealing no growth. White count 17.4. Hemoglobin 12.4. Sodium 136. Potassium 4.1. Bicarb 18. BUN 23. Creatinine 0.74. Glucose 135. Pro-calcitonin was 3.68. COVID-19 positive. He is continued on Zosyn. Anticoagulated with Xarelto. Continued on Decadron, bronchodilators, vitamin supplements. The patient is seen today 07/03/2023 in follow-up in the intensive care unit. He is currently awake and alert in no acute distress. He is maintaining good O2 saturations in the 90s on 2 L/m per nasal cannula. He has normal saline at KVO. He is continued on Decadron, vitamin supplements, anticoagulated with Xarelto. He remains on antibiotics in the form of Zosyn. Blood cultures reveal no growth. White count 12.5. Hemoglobin 12.8. Platelets 173. Lymphocytes 0.7. Sodium 135. Potassium 4.1. Bicarb 21. BUN 24. Creatinine 0.76. Glucose 134. Today's chest x-ray showing slight improvement but the left lung airspace opacities. The patient is seen today 07/04/2023 in follow-up in the intensive care unit. He is currently sitting up in bed. Awake and alert in no acute distress. Maintaining O2 saturations in the 90s on 2 L/m per nasal cannula. He has normal saline at KVO. White count 12.3. Hemoglobin 14.3. Platelets 226. Sodium 135. Potassium 3.8. Bicarb 27. BUN 30. Creatinine 0.73. Glucose 137. He is continued on Decadron. Anticoagulated with Eliquis. Remains on vitamin supplements. Remains on Zosyn. The patient is seen today 07/05/2023 in follow-up in the intensive care unit. Regular medical floor overflow. He is currently sitting up in bed. Awake and alert in no acute distress. Maintaining good O2 saturations in the 90s on room air. Rib x-rays did reveal a deformity in the left ribs #8. Otherwise the lungs are clear. Urine culture is positive for Layla. Blood cultures revealed no growth. He remains on Decadron. Anticoagulated with Xarelto. Continue vitamin supplements. Continued on Zosyn. Objective - Vital Signs Vital signs: Vital Signs Temp 97.9 F 07/05/23 08:00 Pulse 94 07/05/23 09:00 Resp 17 07/05/23 09:00 BP 131/87 07/05/23 09:00 Pulse Ox 91 L 07/05/23 09:00 FiO2 Intake & Output 07/04/23 07/05/23 07/05/23 18:59 06:59 18:59 Intake Total 940 800 Output Total 1200 1800 Balance -260 -1000 Weight 117.2 kg Intake: IV 340 320 Piperacillin-Tazobactam 3 200 100 .375 gm In Sodium Chloride 0.9% 100 ml @ 25 mls/hr IVPB Q8HR MIN Rx# :[id number] Sodium Chloride 0.9% 1, 140 220 000 ml @ 20 mls/hr IV . Q24H MIN Rx#:[id number] Oral 600 480 Output: Urine 1200 1800 Other: Voiding Method Urinal Urinal Urinal # Voids 3 # Bowel Movements 1 3 - Exam GENERAL EXAM: Alert, 67-year-old male patient, on room air, comfortable in no apparent distress. HEAD: Normocephalic. EYES: Normal reaction of pupils, equal size. NOSE: Clear with pink turbinates. THROAT: No erythema or exudates. NECK: No masses, no JVD. CHEST: No chest wall deformity. LUNGS: Equal air entry with no crackles, wheeze or rhonchi. CVS: S1 and S2 normal with no audible murmur, irregular rhythm. ABDOMEN: No hepatosplenomegaly, normal bowel sounds, no guarding or rigidity. SPINE: No scoliosis or deformity SKIN: No rashes CENTRAL NERVOUS SYSTEM: No focal deficits, tone is normal in all 4 extremities. EXTREMITIES: There is no peripheral edema. No clubbing, no cyanosis. Peripheral pulses are intact. - Labs CBC & Chem 7: 07/04/23 04:16 07/04/23 04:16 Labs: Microbiology - Last 24 Hours (Table) 07/03/23 10:15 Gram Stain - Final Sputum Sputum Culture - Final Layla albicans Assessment and Plan Assessment: Acute left lower lobe pneumonia, most likely bacterial in nature although COVID- 19 pneumonia is not entirely ruled out. Procalcitonin 3.68. Currently on Zosyn Acute COVID-19 infection Sepsis and septic shock secondary to pneumonia, patient required a brief course of norepinephrine but he is presently off norepinephrine and he received 2 L fluid boluses while in the ER History of underlying pulmonary fibrosis/IPF History of lung nodule being monitored on outpatient basis by Dr. Chaudhry and the patient had a recent PET scan in [place] History of chronic atrial fibrillation, continued on Xarelto Coronary arteriosclerosis and previous stent placement History of aortic aneurysm and previous stent placement/abdominal aortic aneurysm Degenerative joint disease Dyslipidemia History of underlying COPD Chest pain, pleuritic and musculoskeletal in nature Possible pulmonary embolism clinically I feel this is less likely Acute kidney injury secondary to sepsis and hypotension and acute tubular necrosis Plan: The patient was seen and evaluated X-ray, labs and medications reviewed Stable and on room air Discontinue Zosyn, no need for further antibiotics The patient is cleared for discharge from the pulmonary standpoint Follow up with Dr. Chaudhry in the office I have personally seen and examined the patient, performed the documentation and the assessment and plan as written. Number of minutes spent on the visit: 10.
--- NOTE | 2023-07-07 10:06 | P.DS ---
Providers Date of admission: 06/30/23 14:47 Attending physician: Daniel Traylor MD Consults: 06/30/23 14:46 Consult Physician Stat Consulting Provider: Layton Robb Consult Reason/Comments: pneumonia sepsis Do you want consulting provider notified?: Already Contacted 06/30/23 15:03 Consult Physician Routine Consulting Provider: Pau Haile Consult Reason/Comments: Severe pneumonia and sepsis Do you want consulting provider notified?: Yes 07/01/23 01:40 Consult Physician Routine Consulting Provider: Cali Weller Consult Reason/Comments: A-fib RVR Do you want consulting provider notified?: Yes, Notify in am [facility] [place] [facility] Course: Final Diagnosis COVID-19 pneumonia and sepsis present on admission Septic shock requiring vasopressors initially Acute hypoxemic respiratory failure secondary to above currently on 2L of oxygen Bacterial pneumonia Acute kidney injury secondary to sepsis and hypotension and acute tubular necrosis History of underlying pulmonary fibrosis/IPF History of lung nodule history of chronic atrial fibrillation anticoagulated with xarelto Coronary arteriosclerosis and previous stent placement History of aortic aneurysm and previous stent placement/abdominal aortic aneurysm Degenerative joint disease Dyslipidemia History of underlying COPD Chest pain, pleuritic and musculoskeletal in nature GI prophylaxis DVT prophylaxis Full Code Discharge Disposition Patient is stable for discharge home. He will require close follow up with pulmonary services on discharge. Recommended to follow up with his known shift commander on discharge, Cardiac team at [facility] recommending to follow up echocardiogram once recovered from covid. Continue on oral prednisone taper on discharge and patient recommended to continue with incentive spirometer 10 x an hour while awake. Continue on oral zinc, vitamin C and vitamin D3 for 2 weeks, and continue on tessalon and robitussin as needed for cough. Repeat CBC and BMP in 2 to 3 days. Hospital Course This is a 67-year-old gentleman past medical history significant for hypertension, history of chronic atrial fibrillation who presented to the ER because of shortness of breath and left-sided chest pain, patient also complaining of shortness of breath at that time. Denied any fever or chills at the home. Denied any complaint of nausea, vomiting or abdominal pain. Patient stated that he was having cough a week back and he saw his surg nurse who ordered Medrol Dosepak and oral antibiotics. Cough continued to persist with these medications. Because of sudden onset of chest pain and shortness of breath, patient was brought to the ER. Initial lab work done in the ER showed WBC 33.8, hemoglobin 15.5,, sodium 136, potassium 4.3, BUN 33, creatinine 1.41, glucose 117, lactate, 3.9. Chest x-ray done in the ER showed multifocal pneumonia. CTA chest done showed increasing airspace/ consolidative infiltrate and left upper lobe and right lung base consistent with a worsening infectious process. Patient was hypotensive in the ER, was started on Levophed, transferred to ICU. Patient was found to be covid positive. His sputum culture was negative. He had an elevated procalcitonin level of 3.68. He also had lactic acidosis on admission. He was hydrated and treated with steroids and antibiotics. Renal function has normalized. White count down to 12.3. He has been up ambulating in the room. He has been taken off oxygen. He did have persistent left sided rib pain worse with deep inspiration chest xray showed evidence of possible 8th rib fracture. He was given antitussives pain medication and incentive spirometer. He improved and was cleared by pulmonary for discharge. Blood pressure is now 131/87. Lungs are clear, diminished. Alert x 3 no focal deficits. He will be discharged home with the above mentioned recommendations. Please see medication reconciliation for a list of current medication. Thank you for allowing us to participate in the care of this patient. The impression and plan of care has been dictated by Idalia Almazan, Nurse Practitioner as directed. Dr. Suyapa MD I have performed a history and physical examination and medical decision making of this patient, discussed the same with the dictator, and agree with the dictators assessment and plan as written, documented as a scribe. Based on total visit time, I have performed more than 50% of this visit. Patient Condition at Discharge: Fair Plan - Discharge Summary Discharge Rx Participant: No New Discharge Prescriptions: New polyethylene glycoL 3350 [Miralax] 17 gm PO DAILY packet guaiFENesin SYRUP 100MG/5ML [Robitussin] 200 mg PO Q6HR PRN #150 ml PRN Reason: Cough Benzonatate [Tessalon Perles] 100 mg PO TID PRN #20 cap PRN Reason: Cough Albuterol Inhaler [Ventolin Hfa Inhaler] 2 puff INHALATION QID PRN #1 each PRN Reason: Shortness Of Breath Or Wheezing cefUROXime axetiL [Ceftin] 500 mg PO BID 3 Days #6 tab Metoprolol Tartrate [Lopressor] 50 mg PO BID #60 tab methylPREDNISolone Dose Pack [Medrol Dose Pack] 4 mg PO DIRECTED #21 tab Zinc Sulfate [Orazinc] 220 mg PO DAILY #15 cap Pantoprazole [Protonix] 40 mg PO AC-BRKFST #30 tab Acetaminophen Tab [Tylenol] 650 mg PO Q4HR PRN tab PRN Reason: Fever And/ Or Pain Ascorbic Acid [Vitamin C] 500 mg PO DAILY #15 tab Cholecalciferol [Vitamin D3 (125 Mcg = 5000 Iu)] 125 mcg PO DAILY #15 tab Continue Rivaroxaban [Xarelto] 20 mg PO HS [place]-3 Fatty Acids/Fish Oil [Fish Oil 1,000 mg Softgel] 1 cap PO BID Enalapril [Vasotec] 10 mg PO DAILY Multivitamins, Thera [Multivitamin (formulary)] 1 tab PO DAILY #30 tablet traMADol HCL 50 mg PO TID Budesonide/Formoterol Fumarate [Symbicort 160-4.5 Mcg Inhaler] 2 puff INHALATION RT-BID PRN PRN Reason: Shortness Of Breath Topiramate [Topamax] 25 mg PO BID Tolterodine ER [Detrol LA] 4 mg PO HS Clopidogrel [Plavix] 75 mg PO DAILY Tiotropium 2.5 Mcg/Puff [Spiriva Respimat 2.5 Mcg] 2 puff INHALATION RT-DAILY Rosuvastatin [Crestor] 20 mg PO HS Discontinued atenoloL [Tenormin] 25 mg PO DAILY predniSONE See Taper PO DIRECTED Azithromycin [Zithromax] 500 mg PO DAILY Discharge Medication List Enalapril [Vasotec] 10 mg PO DAILY 08/07/19 [History] [place]-3 Fatty Acids/Fish Oil [Fish Oil 1,000 mg Softgel] 1 cap PO BID 08/07/19 [History] Rivaroxaban [Xarelto] 20 mg PO HS 08/07/19 [History] Multivitamins, Thera [Multivitamin (formulary)] 1 tab PO DAILY #30 tablet 08/12/19 [Rx] Clopidogrel [Plavix] 75 mg PO DAILY 04/19/22 [History] Budesonide/Formoterol Fumarate [Symbicort 160-4.5 Mcg Inhaler] 2 puff INHALATION RT-BID PRN 06/30/23 [History] Rosuvastatin [Crestor] 20 mg PO HS 06/30/23 [History] Tiotropium 2.5 Mcg/Puff [Spiriva Respimat 2.5 Mcg] 2 puff INHALATION RT-DAILY 1 08/30/22 [History] Tolterodine ER [Detrol LA] 4 mg PO HS 06/30/23 [History] Topiramate [Topamax] 25 mg PO BID 06/30/23 [History] traMADol HCL 50 mg PO TID 06/30/23 [History] Acetaminophen Tab [Tylenol] 650 mg PO Q4HR PRN tab 07/05/23 [Rx] Albuterol Inhaler [Ventolin Hfa Inhaler] 2 puff INHALATION QID PRN #1 each 07/05/23 [Rx] Ascorbic Acid [Vitamin C] 500 mg PO DAILY #15 tab 07/05/23 [Rx] Benzonatate [Tessalon Perles] 100 mg PO TID PRN #20 cap 07/05/23 [Rx] Cholecalciferol [Vitamin D3 (125 Mcg = 5000 Iu)] 125 mcg PO DAILY #15 tab 07/05/23 [Rx] Metoprolol Tartrate [Lopressor] 50 mg PO BID #60 tab 07/05/23 [Rx] Pantoprazole [Protonix] 40 mg PO AC-BRKFST #30 tab 07/05/23 [Rx] Zinc Sulfate [Orazinc] 220 mg PO DAILY #15 cap 07/05/23 [Rx] cefUROXime axetiL [Ceftin] 500 mg PO BID 3 Days #6 tab 07/05/23 [Rx] guaiFENesin SYRUP 100MG/5ML [Robitussin] 200 mg PO Q6HR PRN #150 ml 07/05/23 [Rx] methylPREDNISolone Dose Pack [Medrol Dose Pack] 4 mg PO DIRECTED #21 tab 07/05/23 [Rx] polyethylene glycoL 3350 [Miralax] 17 gm PO DAILY packet 07/05/23 [Rx] Follow up Appointment(s)/Referral(s): Ifeanyi Chaudhry DO [Doctor of Osteopathic Medicine] - 07/17/23 3:15 pm Ifeanyi Peace MD [Primary Care Provider] - 07/12/23 1:00 pm Ambulatory/Diagnostic Orders: Basic Metabolic Panel [LAB.AMB] Time Frame: 3 Days, Location: None Selected Complete Blood Count w/diff [LAB.AMB] Location: None Selected Patient Instructions/Handouts: COVID-19 and Chronic Health Conditions (DC) Activity/Diet/Wound Care/Special Instructions: Follow up with your known shift commander on discharge Cardiac team at [facility] recommending to follow up echocardiogram once recovered from covid. Continue on oral prednisone taper and same inhalers, albuterol as needed for shortness of breath or wheezing Recommend to continue with incentive spirometer 10 x an hour while awake Continue on oral zinc, vitamin C and vitamin D3 for 2 weeks, and continue on tessalon and robitussin as needed for cough Recommend close follow up with pulmonary and PCP Dr. Peace on discharge. Discharge Disposition: HOME WITH HOME HEALTH SERVICES
--- NOTE | 2023-07-07 17:46 | CDI ---
Documentation Clarification Form Date: 07/07/2023 05:26:42 PM From: Nina Varghese Phone: Admit Date: 06/30/2023 02:47:00 PM Patient Name: Hermes Duque Visit Number: [id number] Discharge Date: 07/05/2023 01:52:00 PM ATTENTION: The Clinical Documentation Specialists (CDI) and [facility] Coding Staff appreciate your assistance in clarifying documentation. Please respond to the clarification below the line at the bottom and electronically sign. The CDI & [facility] Coding staff will review the response and follow-up if needed. Please note: Queries are made part of the Legal Health Record. If you have any questions, please contact the author of this message via ITS. Dr. Layton Robb Pulmonary embolism is documented Consult Note 06/30 which may lack sufficient clinical evidence/support in the medical record. Additional clarification is requested. History/Risk Factors: 67yo M, severe sepsis w shock, COVID-19 PNA, AHRF, ATN, PF, Hxlung nodule, chronic A Fib, CAD w stents, Hx AAA w repair, DJD, emphysema Clinical Indicators: CT ScanReport- Increasing airspace/consolidativeinfiltrates in the LULand right lung base consistent with a worsening infectious process. Tiny subsegmentalpulmonary embolusin the LLL. Pulmonology Consult Note: PossiblePEclinically I feelthis is less likely Treatment: 07/05 Progress Note tiny labs today showed improvement in hisleukocytosiswith WBC count down to 27.3 hemoglobin 13.7 basic metabolic profileis normalrenal profile is normal. Patient is empirically on Zosyn and vancomycin, cultures are pending. Please clarify if pulmonary embolism is a valid diagnosis? [ ] Yes, Pulmonary embolism is present as evidence by (additional clinical support): [ ] No, Pulmonary embolism is ruled out [ ] Other (please specify diagnosis) [ x] Unable to determine (Template Last Revised: October 2020) MTDD
== END 2023-07-05 13:52 | disposition home health service (06) | DRG 871 ==
LOC: EC 09:24 → 2SICU 14:47
PROVIDERS: ADMIT Internal Medicine; ATTEND Internal Medicine
PROC: 06HY33Z Insertion of Infusion Device into Lower Vein, Percutaneous Approach (ICD-10-PCS; principal; 2023-06-30)
PROC: 3E043XZ Introduction of Vasopressor into Central Vein, Percutaneous Approach (ICD-10-PCS; 2023-06-30)
DX: A41.89 Other specified sepsis (principal); J12.82 Pneumonia due to coronavirus disease 2019; J96.01 Acute respiratory failure with hypoxia; N17.0 Acute kidney failure with tubular necrosis; R65.21 Severe sepsis with septic shock; U07.1 COVID-19; E87.20 Acidosis, unspecified; J44.0 Chronic obstructive pulmonary disease with (acute) lower respiratory infection; I48.21 Permanent atrial fibrillation; B37.49 Other urogenital candidiasis; J84.112 Idiopathic pulmonary fibrosis; J84.10 Pulmonary fibrosis, unspecified; J43.9 Emphysema, unspecified; I10 Essential (primary) hypertension; G58.9 Mononeuropathy, unspecified; M19.90 Unspecified osteoarthritis, unspecified site; R91.1 Solitary pulmonary nodule; I25.10 Atherosclerotic heart disease of native coronary artery without angina pectoris; E87.70 Fluid overload, unspecified; M48.00 Spinal stenosis, site unspecified; N40.0 Benign prostatic hyperplasia without lower urinary tract symptoms; I25.2 Old myocardial infarction; Z86.73 Personal history of transient ischemic attack (TIA), and cerebral infarction without residual deficits; Z95.5 Presence of coronary angioplasty implant and graft; Z87.891 Personal history of nicotine dependence; Z86.79 Personal history of other diseases of the circulatory system; Z79.01 Long term (current) use of anticoagulants; Z79.899 Other long term (current) drug therapy; Z79.02 Long term (current) use of antithrombotics/antiplatelets; Z88.6 Allergy status to analgesic agent; Z79.51 Long term (current) use of inhaled steroids
CPT/HCPCS: 36415; 36556; 71045; 71046; 71275; 80048; 83605; 83880; 84145; 84484; 85025; 85027; 85610; 85730; 86140; 87040; 87070; 87205; 87449; 87636; 93005; 94640; 96365; 96366; 96368; 96375; 99291; 99292

== ENCOUNTER → 2024-01-01 | Outpatient (CLI) | payer MEDICARE ==
[2024-01-01 11:54] LABS: African American GFR (CKD) >90 (>60 ml/min/1.73 sqM); Blood Urea Nitrogen 22 mg/dL (9-20); Non-African American GFR(CKD) 89 (>60 ml/min/1.73 sqM)
--- NOTE | 2024-01-06 13:41 | CT ---
EXAMINATION TYPE: CT chest w con DATE OF EXAM: 01/01/2024 COMPARISON: 06/30/2023 HISTORY: nodule CT DLP: 753 mGycm, Automated exposure control for dose reduction was used. CONTRAST: Performed injected with 100 mL of Isovue 300. TECHNIQUE: Axial images were obtained at 5 mm thick sections. Reconstructed images are reviewed on [facility] computer in the coronal plane. FINDINGS: Portion of the thyroid visualized is normal. Advanced emphysematous changes present some pulmonary fibrosis may be present in the peripheries. Pre vious left lower lobe consolidation has resolved. There is a 3.4 x 1.5 cm density along the posterior lateral right lung margin this may be slightly sm aller than comparison. There is a 1.9 cm consolidation along the anterior left mediastinal border. Series 4 image 35. No enlarged mediastinal or hilar adenopathy is evident. The ascending aorta diameter at the level o f the main pulmonary artery is 3.6 cm. The main pulmonary artery diameter at the bifurcation is 3.[address] sections are obtained through the upper abdomen. Abdomen is essentially unremarkable. IMPRESSION: 1. Improved consolidation from prior study. Some mild residual may remain along the left mediastinal border. Small area of increased density along the right sulcus appears similar. Continued follow-up i s recommended.
== END | disposition home or self-care (01) ==
LOC: RADCTMAIN 10:50
PROVIDERS: ATTEND Internal Medicine Critical Care Medicine
DX: R91.1 Solitary pulmonary nodule (principal)
CPT/HCPCS: 82565; 84520; 71260; 36415; Q9967

== ENCOUNTER → 2024-10-24 | Outpatient (CLI) | payer MEDICARE ==
[2024-10-24 08:53] LABS: African American GFR (CKD) >90 (>60 ml/min/1.73 sqM); Blood Urea Nitrogen 18 mg/dL (9-20); Non-African American GFR(CKD) 83 (>60 ml/min/1.73 sqM)
--- NOTE | 2024-10-24 18:23 | CT ---
EXAMINATION TYPE: CT chest w con DATE OF EXAM: 10/24/2024 10:11 AM COMPARISON: 12/24/2023 CLINICAL INDICATION: Male, 69 years old with history of R91.1 LUNG NODULE; PHH, LUNG NODULE, PULMONAR Y FIBROSIS, CARDIAC STENTS/AORTIC STENT TECHNIQUE: Multiple axial images were obtained through the chest. Sagittal and coronal reformats were created for review. MIP was performed on a separate workstation. Contrast used:100 mL of Isovue 300 with IV Contrast (None if empty) Oral contrast used: (None if empty) CT DLP: 557.6 mGycm, Automated exposure control for dose reduction was used. FINDINGS: LUNGS/ PLEURA: No focal consolidation, pneumothorax or pleural effusion. Moderate to severe since of emphysema changes predominantly in lung apices. Peripheral nodule in the right lung base measures 24 x 12 mm which is thought to have mildly more soft tissue to this lesion which could be due to superim posed scarring/atelectasis. Interstitial changes of the lungs are worse in the lung bases posteriorly in the anterior upper lung anteriorly. No evidence for honeycombing. No additional enlarging opacity . AIRWAY: Patent and unremarkable. HEART: Cardiomegaly is demonstrated.Atherosclerosis of the arterial vasculature. Severe coronary queenie ry calcifications present. MEDIASTINUM: No gross evidence of adenopathy. VASCULATURE: No aortic aneurysm. Vascular stent graft noted in the upper abdomen. MUSCULOSKELETAL: Moderate disc degeneration changes are present throughout the thoracolumbar spine se condary to osteophyte formation and facet joint arthropathy. SOFT TISSUES/LYMPH NODES: Postsurgical changes to the anterior abdominal wall LOWER NECK: No significant findings. UPPER ABDOMEN: Scattered colonic diverticula. Postsurgical changes of the upper abdomen large bowel. IMPRESSION: 1. Right lower lobe peripheral nodular opacities slightly increased size possibly increasing cicatri sation atelectasis . Continued follow-up surveillance recommended. 2. Moderate to severe emphysema changes with interstitial lung disease worse in the lung bases and t he left upper lobe anteriorly. 3. Colonic diverticulosis. 4. Postsurgical changes of the large bowel in the right upper quadrant. 5. Mild thyromegaly. 6. Severe coronary artery atherosclerosis. [facility], , 10/24/2024 6:20 PM
== END | disposition home or self-care (01) ==
LOC: RADCTMAIN 08:20
PROVIDERS: ATTEND Internal Medicine Critical Care Medicine
DX: J43.9 Emphysema, unspecified (principal); K57.30 Diverticulosis of large intestine without perforation or abscess without bleeding; I25.10 Atherosclerotic heart disease of native coronary artery without angina pectoris; E01.0 Iodine-deficiency related diffuse (endemic) goiter; R91.8 Other nonspecific abnormal finding of lung field; J84.9 Interstitial pulmonary disease, unspecified; Z98.890 Other specified postprocedural states
CPT/HCPCS: 82565; 84520; 71260; 36415; Q9967